=== PATIENT | female | born 1940 | race Caucasian/White ===

== ENCOUNTER → 2016-11-07 | Outpatient (CLI) | payer OTHER ==
[2016-11-07] VITALS (7 sets, daily range): BP systolic 107–128; BP diastolic 53–64
[~2016-11-07] VITALS: Ht 157.5 cm; Wt 70.8 kg
[~2016-11-07] MED LIST: ASPI-482 PO; CARV25TA2 PO; CARV3.122 PO; FUROSEMIDE 20 MG/2 ML VIAL. IVP ONE; GLIP10TA13 PO; LISI1TAB7 PO; METF-620 PO; OMEG1CAP6 PO; TRAM50TA PO
[2016-11-07 10:45] LABS: HEMATOCRIT 21.3 % (36.0-47.0)
[2016-11-07 10:49] LABS: HEMOGLOBIN 6.8 g/dL (12.0-15.5)
[2016-11-07 16:46] LABS: HEMATOCRIT 31.6 % (36.0-47.0); HEMOGLOBIN 10.2 g/dL (12.0-15.5)
== END | disposition home or self-care (01) ==
LOC: OPS 10:14
PROVIDERS: ATTEND Family Medicine
DX: D64.9 Anemia, unspecified (principal)
CPT/HCPCS: 36415; 36430; 85014; 85018; 86850; 86900; 86901; 86920; P9016

== ENCOUNTER → 2017-10-10 | Outpatient (CLI) | payer OTHER ==
[2017-10-10 08:53] LABS: HEMATOCRIT 25.7 % (36.0-47.0); HEMOGLOBIN 7.2 g/dL (12.0-15.5)
[2017-10-10 09:03] LABS: MEAN CORPUSCULAR HGB CONC 29 g/dL (31-37)
[2017-10-10 10:00] LABS: IMMEDIATE SPIN CROSSMATCH 1 3
== END | disposition home or self-care (01) ==
LOC: OPS 07:17
DX: D64.9 Anemia, unspecified (principal)
CPT/HCPCS: 36415; 36430; 85014; 85018; 86850; 86900; 86901; 86920; P9016

== ENCOUNTER → 2018-10-28 | Outpatient (CLI) | payer OTHER ==
[2018-05-08 15:27] VITALS: BP 166/71
[~2018-10-28] MED LIST changes: +CARV3.1210 PO; -CARV3.122 PO; -FUROSEMIDE 20 MG/2 ML VIAL. IVP ONE; -METF-620 PO; +METF10007 PO
--- NOTE | 2018-10-29 10:06 | KCIC ---
EXAM: AP pelvis DATE: 10/28/2018 INDICATION: Right hip pain since 09/27/2018. History of fall COMPARISON: No Prior FINDINGS: There is marked osteopenia. There is subtle interruption of the right iliopectineal line suggesting associated nondisplaced fracture. In addition there may be lucency through the inferior right pubic ramus also suspicious for nondisplaced fracture. Apparent lucency through the intertrochanteric region is seen without cortical abnormality or malalignment, possibly nondisplaced fracture or artifact. IMPRESSION: Several equivocal lucencies through the right hip and pelvis are suspicious for nondisplaced fractures. However given marked osteopenia this evaluation is limited by radiographs and can be further assessed by MRI. Electronically signed by: Mak Alexis MD (10/29/2018 10:03 AM) [id number]
== END | disposition home or self-care (01) ==
LOC: KCIC CT 15:02
PROVIDERS: ATTEND Family Medicine
DX: M85.88 Other specified disorders of bone density and structure, other site (principal)
CPT/HCPCS: 73502

== ENCOUNTER 2019-06-13 09:41 | Inpatient (IN) | payer MEDICARE, OTHER ==
[~2019-06-13] VITALS: Ht 157.5 cm; Wt 66.4 kg
[~2019-06-13 09:41] MED LIST changes: +LISI1TAB20 PO; -LISI1TAB7 PO
[2019-06-13] MEDS ORDERED: IV NORMAL SALINE 1000ML BAG 1,000 ML IV ONE ×2 (10:15→12:30)
--- NOTE | 2019-06-13 10:23 | PHYS DOC ---
Adult General Chief Complaint Chief Complaint: ABDOMINAL PAIN HPI HPI Patient is a 78 year old female] who presents with [right upper quadrant abdominal pain and fatigue. Patient reports she's been having some intermittent abdominal pain for the last 2 weeks, stasis, but worse over the last couple days. States she has felt nauseous, vomiting, diarrhea last week with symptoms improving. Reports her symptoms worsened again over the last 5 days. States any time she eats something, she vomits it back up shortly afterwards. States no fever, no change in diet. States she has not had this discomfort this severe in the past. Denies change in urination. Does report her blood sugar had been a little higher than normal recently, self reports 275 this morning. ] Review of Systems Review of Systems Constitutional: Denies fever or chills does report generalized fatigue [] Eyes: Denies change in visual acuity, redness, or eye pain [] HENT: Denies nasal congestion or sore throat [] Respiratory: Denies cough or shortness of breath [] Cardiovascular: No additional information not addressed in HPI [] GI: Reports generalized abdominal pain, right upper quadrant and right side left. Reports minimal discomfort to left side. States history of Nausea, vomiting, diarrhea over the last couple days, worse today.[] : Denies dysuria or hematuria [] Musculoskeletal: Reports back pain, right side.[] Integument: Denies rash or skin lesions [] Neurologic: Denies headache, focal weakness or sensory changes [] Endocrine: Denies polyuria or polydipsia [] All other systems were reviewed and found to be within normal limits, except as documented in this note. Current Medications Current Medications Current Medications Medications (Trade) Dose Ordered Sig/James Start Time Stop Time Status Last Admin Dose Admin Ondansetron HCl (Zofran) 4 mg 1X ONCE 06/13/19 10:45 06/13/19 10:46 DC 06/13/19 10:35 4 MG Sodium Chloride 1,000 ml @ 125 mls/hr 1X ONCE 06/13/19 12:30 06/13/19 20:29 06/13/19 12:30 125 MLS/HR Allergies Allergies Allergies Coded Allergies Type Severity Reaction Last Updated Verified iodine Allergy Severe blisters leaving scars 10/10/17 Yes Physical Exam Physical Exam Constitutional: Well developed, well nourished, no acute distress, pale, conve rsational. [] HENT: Normocephalic, atraumatic, bilateral external ears normal, oropharynx moist, no oral exudates, nose normal. [] Eyes: PERRLA, EOMI, conjunctiva normal, no discharge. [] Neck: Normal range of motion, no tenderness, supple, no stridor. [] Cardiovascular:Heart rate regular rhythm, no murmur [] Lungs & Thorax: Bilateral breath sounds clear to auscultation [] Abdomen: Bowel sounds normal, soft, right upper quadrant, right lower quadrant abdominal tenderness. Minimal abdominal tenderness noted to left upper quadrant. No discomfort noted to left lower quadrant., no masses, no pulsatile masses. [] Skin: Warm, dry, no erythema, no rash. pallor [] Back: No tenderness, Right CVA tenderness. [] Extremities: No tenderness, no cyanosis, no clubbing, ROM intact, no edema. [] Neurologic: Alert and oriented X 3, normal motor function, normal sensory function, no focal deficits noted. [] Psychologic: Affect normal, judgement normal, mood normal. [] Current Patient Data Vital Signs Vital Signs Date Time Temp Pulse Resp B/P (MAP) Pulse Ox O2 Delivery O2 Flow Rate FiO2 06/13/19 12:30 70 16 105/46 (65) 97 Room Air 06/13/19 09:48 97.8 97.8 Lab Values Laboratory Tests Test 06/13/19 10:15 06/13/19 10:39 White Blood Count 6.6 x10^3/uL (4.0-11.0) Red Blood Count 4.45 x10^6/uL (3.50-5.40) Hemoglobin 13.0 g/dL (12.0-15.5) Hematocrit 39.6 % (36.0-47.0) Mean Corpuscular Volume 89 fL (79-100) Mean Corpuscular Hemoglobin 29 pg (25-35) Mean Corpuscular Hemoglobin Concent 33 g/dL (31-37) Red Cell Distribution Width 14.0 % (11.5-14.5) Platelet Count 324 x10^3/uL (140-400) Neutrophils (%) (Auto) 64 % (31-73) Lymphocytes (%) (Auto) 22 % (24-48) L Monocytes (%) (Auto) 10 % (0-9) H Eosinophils (%) (Auto) 2 % (0-3) Basophils (%) (Auto) 1 % (0-3) Neutrophils # (Auto) 4.2 x10^3/uL (1.8-7.7) Lymphocytes # (Auto) 1.5 x10^3/uL (1.0-4.8) Monocytes # (Auto) 0.7 x10^3/uL (0.0-1.1) Eosinophils # (Auto) 0.1 x10^3/uL (0.0-0.7) Basophils # (Auto) 0.1 x10^3/uL (0.0-0.2) Sodium Level 136 mmol/L (136-145) Potassium Level 4.7 mmol/L (3.5-5.1) Chloride Level 99 mmol/L (98-107) Carbon Dioxide Level 22 mmol/L (21-32) Anion Gap 15 (6-14) H Blood Urea Nitrogen 62 mg/dL (7-20) H Creatinine 5.1 mg/dL (0.6-1.0) H Estimated GFR (Cockcroft-Gault) 8.2 BUN/Creatinine Ratio 12 (6-20) Glucose Level 271 mg/dL (70-99) H 260 mg/dL (70-99) H Lactic Acid Level 2.7 mmol/L (0.4-2.0) H Calcium Level 10.3 mg/dL (8.5-10.1) H Total Bilirubin 0.4 mg/dL (0.2-1.0) Aspartate Amino Transferase (AST) 25 U/L (15-37) Alanine Aminotransferase (ALT) 16 U/L (14-59) Alkaline Phosphatase 66 U/L (46-116) Troponin I Quantitative < 0.017 ng/mL (0.000-0.055) Total Protein 7.7 g/dL (6.4-8.2) Albumin 3.4 g/dL (3.4-5.0) Albumin/Globulin Ratio 0.8 (1.0-1.7) L Lipase 313 U/L (73-393) POC Hematocrit 36 % (36-40) POC Venous pH 7.30 (7.32-7.42) L POC Venous pCO2 40 mmHg (41-51) L POC Venous pO2 38 mmHg (20-40) POC Venous HCO3 20 mmol/L (24-28) L POC Venous Blood Total CO2 21 mmol/L (21-32) POC Venous Blood O2 Saturation 66 % POC Venous Blood Base Excess -7 mmol/L (0-3) L POC Venous Hemoglobin (Calc) 12.2 g/dL (12-15) POC FiO2 21 POC Sodium 137 mmol/L (135-145) POC Potassium 4.3 mmol/L (3.5-5.0) POC Ionized Calcium (Sameera) 1.26 mmol/L (1.13-1.32) Laboratory Tests 06/13/19 10:15 Laboratory Tests 06/13/19 10:15 06/13/19 10:39 EKG EKG No STEMI. Left Bundle Branch Block. HR 84. Sinus rhythm.[] Radiology/Procedures Radiology/Procedures Impression: 1. There is no significant inflammatory type change about the bowel although it is difficult to exclude mild long segment colonic wall thickening of the transverse and descending colon and also small bowel thickening in the left abdomen as could be seen with enterocolitis in the appropriate clinical setting. There is no convincing evidence of acute appendicitis. 2. There is calcified plaque of the abdominal aorta and branches, more significant stenosis of the right common iliac artery and proximal left external iliac artery. 3. There is cholelithiasis. 4. There are renal calculi, largest on the left. Some calcifications of the renal hilar regions are apparently vascular in etiology. Electronically signed by: Grover Franco MD (06/13/2019 10:56 AM) [facility] [] CHEST AP ONLY History: Abdominal pain, fatigue Comparison: 07/14/2012 Findings: Single view of the chest is submitted. There again has been median sternotomy. There is again dual lead left electronic cardiac device. Heart size is within normal limits. There is atherosclerotic calcification near aortic arch. There is no lobar infiltrate, pleural fluid, or pneumothorax. Impression: 1. There is no radiographic evidence of acute cardiopulmonary disease. Electronically signed by: Grover Franco MD (06/13/2019 10:39 AM) [facility] Multiple sonographic images of the abdomen are submitted. Pancreas is not well-visualized due to bowel gas. There is segmental visualization of the inferior vena cava. No focal hepatic abnormality is demonstrated. Right lobe of the liver measured 12 cm longitudinal. Gallbladder is present, internal echogenicity without pericholecystic fluid or gallbladder wall thickening. Common bile duct is within normal limits at 0.4 cm. Right kidney measured 11.5 x 4.6 x 5.3 cm, no hydronephrosis. Impression: 1. There is cholelithiasis, no significant gallbladder wall thickening or biliary ductal dilatation. Electronically signed by: Grover Franco MD (06/13/2019 11:45 AM) [facility] Course & Med Decision Making Course & Med Decision Making Pertinent Labs and Imaging studies reviewed. (See chart for details) @1220 [Discussed with Dr Yusuf, Nephrology, recommends hydration at this time with no noted electrolyte abnormality. ]@[address] Baker, agrees to admission. Dragon Disclaimer Dragon Disclaimer This electronic medical record was generated, in whole or in part, using a voice recognition dictation system. Departure Departure Impression: Primary Impression: Acute renal failure Disposition: ADMITTED INPATIENT Admitting Physician: MAN Condition: STABLE Referrals: MAKSIM WHITESIDE MD (PCP) Problem Qualifiers Primary Impression: Acute renal failure Acute renal failure type: unspecified Qualified Codes: N17.9 - Acute kidney failure, unspecified [facility] Jun 13, 2019 10:23
[2019-06-13 10:30] LABS: BASO # 0.1 x10^3/uL (0.0-0.2); BASO % 1 % (0-3); EOS # 0.1 x10^3/uL (0.0-0.7); EOS % 2 % (0-3); HEMATOCRIT 39.6 % (36.0-47.0); LYMPH # 1.5 x10^3/uL (1.0-4.8); LYMPH % 22 % (24-48); MEAN CORPUSCULAR HEMOGLOBIN 29 pg (25-35); MEAN CORPUSCULAR HGB CONC 33 g/dL (31-37); MEAN CORPUSCULAR VOLUME 89 fL (79-100); MONO # 0.7 x10^3/uL (0.0-1.1); MONO % 10 % (0-9); NEUT # 4.2 x10^3/uL (1.8-7.7); NEUT % 64 % (31-73); PLATELET COUNT 324 x10^3/uL (140-400); RED BLOOD COUNT 4.45 x10^6/uL (3.50-5.40); WHITE BLOOD COUNT 6.6 x10^3/uL (4.0-11.0)
[2019-06-13 10:42] LABS: FIO2 ISTAT 21; VEN BASE EXCESS ISTAT -7 mmol/L (0-3); VEN GLUC ISTAT 260 mg/dL (70-99); VEN HCO3 ISTAT 20 mmol/L (24-28); VEN HCT ISTAT 36 % (36-40); VEN HGB ISTAT 12.2 g/dL (12-15); VEN ION CA ISTAT 1.26 mmol/L (1.13-1.32); VEN K ISTAT 4.3 mmol/L (3.5-5.0); VEN NA ISTAT 137 mmol/L (135-145); VEN O2 ISTAT 38 mmHg (20-40); VEN PCO2 ISTAT 40 mmHg (41-51); VEN SO2 ISTAT 66 %; VEN TCO2 ISTAT 21 mmol/L (21-32)
--- NOTE | 2019-06-13 10:42 | RAD ---
CHEST AP ONLY History: Abdominal pain, fatigue Comparison: 07/14/2012 Findings: Single view of the chest is submitted. There again has been median sternotomy. There is again dual lead left electronic cardiac device. Heart size is within normal limits. There is atherosclerotic calcification near aortic arch. There is no lobar infiltrate, pleural fluid, or pneumothorax. Impression: 1. There is no radiographic evidence of acute cardiopulmonary disease. Electronically signed by: Grover Franco MD (06/13/2019 10:39 AM) [facility]
[2019-06-13 10:45] LABS: CALCIUM 10.3 mg/dL (8.5-10.1); CREATININE 5.1 mg/dL (0.6-1.0); GFR 8.2; POTASSIUM 4.7 mmol/L (3.5-5.1)
[2019-06-13] MEDS ORDERED: ONDANSETRON PF 4 MG/2 ML VIAL. IV ONE (10:45)
[2019-06-13 10:51] LABS: ALBUMIN 3.4 g/dL (3.4-5.0); ALBUMIN/GLOBULIN RATIO 0.8 (1.0-1.7); TOTAL BILIRUBIN 0.4 mg/dL (0.2-1.0); TOTAL PROTEIN 7.7 g/dL (6.4-8.2)
--- NOTE | 2019-06-13 10:59 | RAD ---
CT Abdomen and Pelvis without contrast History: Generalized abdominal pain Technique: Noncontrast CT imaging was performed of the abdomen and pelvis. Multiplanar images are reviewed. Exposure: One or more of the following individualized dose reduction techniques were utilized for this examination: 1. Automated exposure control 2. Adjustment of the mA and/or kV according to patient size 3. Use of iterative reconstruction technique. Comparison: April 01, 2012 Findings: There is some motion degradation. Leads from electronic cardiac device are noted, not fully included. The is no pleural fluid at the visualized lung bases. Accurate evaluation of the abdominal visceral organs is limited without intravenous contrast, no obvious focal abnormality of the liver or pancreas. There are splenic granulomas. There is cholelithiasis. There is no hydronephrosis of either kidney. There are some calcifications of the renal hilar regions bilaterally in part vascular in etiology although again somewhat branching calculus superior left kidney in the renal collecting system, greatest dimension about 1.2 cm. A couple of small calcifications the right kidney are also likely in the collecting system. There is prominent calcified plaque of the abdominal aorta, also of the iliac arteries bilaterally. There is likely more significant stenosis of the right common iliac artery and of the proximal left external iliac artery. There is also degree of narrowing of the renal artery origins greater on the left. There is also calcified plaque of the proximal superior mesenteric artery and also near the origin of the celiac artery. There is no adrenal nodularity. Accurate evaluation of bowel is somewhat limited without oral contrast. Bowel is not significantly dilated. There is no free fluid or free air. There is no significant inflammatory type change about the bowel. Appendix caliber is upper limits of normal about 0.5 to 0.6 cm not associated with adjacent inflammatory-type change. It is difficult to exclude mild wall long segment wall thickening such as of the transverse and descending colon on this exam. Mild wall thickening of small bowel such as in the left abdomen is also not excludable. There is multilevel thoracolumbar degenerative disc disease, greatest L5-S1 and L3-4. Impression: 1. There is no significant inflammatory type change about the bowel although it is difficult to exclude mild long segment colonic wall thickening of the transverse and descending colon and also small bowel thickening in the left abdomen as could be seen with enterocolitis in the appropriate clinical setting. There is no convincing evidence of acute appendicitis. 2. There is calcified plaque of the abdominal aorta and branches, more significant stenosis of the right common iliac artery and proximal left external iliac artery. 3. There is cholelithiasis. 4. There are renal calculi, largest on the left. Some calcifications of the renal hilar regions are apparently vascular in etiology. Electronically signed by: Grover Franco MD (06/13/2019 10:56 AM) [facility]
--- NOTE | 2019-06-13 11:48 | RAD ---
ABDOMEN LTD History: Right upper quadrant pain, cholelithiasis on CT Comparison: CT exam the same day Findings: Multiple sonographic images of the abdomen are submitted. Pancreas is not well-visualized due to bowel gas. There is segmental visualization of the inferior vena cava. No focal hepatic abnormality is demonstrated. Right lobe of the liver measured 12 cm longitudinal. Gallbladder is present, internal echogenicity without pericholecystic fluid or gallbladder wall thickening. Common bile duct is within normal limits at 0.4 cm. Right kidney measured 11.5 x 4.6 x 5.3 cm, no hydronephrosis. Impression: 1. There is cholelithiasis, no significant gallbladder wall thickening or biliary ductal dilatation. Electronically signed by: Grover Franco MD (06/13/2019 11:45 AM) [facility]
--- NOTE | 2019-06-13 12:45 | PDOC1 ---
History and Physical Date of Admission Date of Admission DATE: 06/13/19 TIME: 12:44 Identification/Chief Complaint Chief Complaint Abdominal pain Source Source: Patient History of Present Illness History of Present Illness Ms Lama is a 78 yo F w/PMHx CAD s/p CABG, tachybrady s/p PPM, ex-smoker, COPD, HLD, HTN, cardiomyopathy/CHF EF 30% (2012), anemia who presents with right upper quadrant abdominal pain and fatigue. Patient reports she's been having some intermittent abdominal pain for the last 2 weeks, but worse over the last couple days. States she has felt nauseous, vomiting, diarrhea last week with symptoms not improving. Reports her symptoms worsened again over the last 5 days. States any time she eats something, she vomits it back up shortly afterwards. States no fever, no change in diet. Her stools have been very dark recently. Denies change in urination. Does report her blood sugar had been a little higher than normal recently, self reports 275 this morning. Her daughter found her scooting around in her house, down on the ground for 2-3 days. Found with BUN 62, Cr 5.1. Abdominal US reveals cholelithiasis without cholecystitis or ductal dilation. CT abdomen shows possible enteritis with renal stones in left kidney, no obstructive uropathy. Admitted for pain control and renal failure treatment. Past Medical History Cardiovascular: CAD, CHF, HTN, Hyperlipidemia Pulmonary: COPD GI: No pertinent hx Rheumatologic: No pertinent hx Infectious disease: No pertinent hx ENT: No pertinent hx Renal/: No pertinent hx Endocrine: Diabetes Dermatology: No pertinent hx Past Surgical History Past Surgical History: Pacemaker, CABG Family History Family History: Coronary Artery Disease, Diabetes, High Cholestrol, Hypertension Social History Smoke: Quit (2011) ALCOHOL: none Drugs: None Current Medications Current Medications Current Medications Sodium Chloride 1,000 ml @ 1,000 mls/hr 1X ONCE IV Last administered on 06/13/19at 10:15; Start 06/13/19 at 10:15; Stop 06/13/19 at 11:14; Status DC Ondansetron HCl (Zofran) 4 mg 1X ONCE IV Last administered on 06/13/19at 10:35; Start 06/13/19 at 10:45; Stop 06/13/19 at 10:46; Status DC Sodium Chloride 1,000 ml @ 125 mls/hr 1X ONCE IV Last administered on 06/13/19at 12:30; Start 06/13/19 at 12:30; Stop 06/13/19 at 20:29 Active Scripts Active Reported Aspir 81 (Aspirin) 81 Mg Tablet.dr 81 Mg PO DAILY Fish Oil 1,000 Mg Capsule (Strum-3 Fatty Acids/Fish Oil) 1 Each Capsule 1 Each PO DAILY Tramadol Hcl 50 Mg Tablet 50 Mg PO PRN Carvedilol 25 Mg Tablet 25 Mg PO Carvedilol 3.125 Mg Tablet 3.125 Mg PO BID Lisinopril-Hctz 20-25 Mg Tab (Lisinopril/Hydrochlorothiazide) 1 Each Tablet 1 Each PO DAILY Glipizide 10 Mg Tablet 10 Mg PO BID Metformin Hcl 1,000 Mg Tablet 1,000 Mg PO BID Allergies Allergies: Coded Allergies: iodine (Verified Allergy, Severe, blisters leaving scars, 10/10/17) ROS General: YES: Fatigue, Malaise, Appetite; No: Chills, Night Sweats, Other PSYCHOLOGICAL ROS: No: Anxiety, Behavioral Disorder, Concentration difficultie, Decreased libido, Depression, Disorientation, Hallucinations, Hostility, Irritablity, Memory difficulties, Mood Swings, Obsessive thoughts, Physical abuse, Sexual abuse, Sleep disturbances, Suicidal ideation, Other Eyes: No Blurry vision, No Decreased vision, No Double vision, No Dry eyes, No Excessive tearing, No Eye Pain, No Itchy Eyes, No Loss of vision, No Photophobia, No Scotomata, No Uses contacts, No Uses glasses, No Other HEENT: No: Heacaches, Visual Changes, Hearing change, Nasal congestion, Nasal discharge, Oral lesions, Sinus pain, Sore Throat, Epistaxis, Sneezing, Snoring, Tinnitus, Vertigo, Vocal changes, Other ALLERGY AND IMMUNOLOGY: No: Hives, Insect Bite Sensitivity, Itchy/Watery Eyes, Nasal Congestion, Post Nasal Drip, Seasonal Allergies, Other Hematological and Lymphatic: No: Bleeding Problems, Blood Clots, Blood Transfusions, Brusing, Night Sweats, Pallor, Swollen Lymph Nodes, Other ENDOCRINE: No: Breast Changes, Galactorrhea, Hair Pattern Changes, Hot Flashes, Malaise/lethargy, Mood Swings, Palpitations, Polydipsia/polyuria, Skin Changes, Temperature Intolerance, Unexpected Weight Changes, Other Breast: No New/Changing Breast Lumps, No Nipple changes, No Nipple discharge, No Other Respiratory: No: Cough, Hemoptysis, Orthopnea, Pleuritic Pain, Shortness of breath, SOB with excertion, Sputum Changes, Stridor, Tachypnea, Wheezing, Other Cardiovascular: No Chest Pain, No Palpitations, No Orthopnea, No Paroxysmal Noc. Dyspnea, No Edema, No Lt Headedness, No Other Gastrointestinal: Yes Nausea, Yes Vomiting, Yes Abdominal Pain, Yes Melena; No Diarrhea, No Constipation, No Hematochezia, No Other Genitourinary: No Dysuria, No Frequency, No Incontinence, No Hematuria, No Retention, No Discharge, No Urgency, No Pain, No Flank Pain, No Other, No , No , No , No , No , No , No Musculoskeletal: Yes Gait Disturbance, Yes Muscular Weakness; No Joint Pain, No Joint Stiffness, No Joint Swelling, No Muscle Pain, No Pain In:, No Swelling In:, No Other Neurological: Yes Gait Disturbance; No Behavorial Changes, No Bowel/Bladder ControlChng, No Confusion, No Dizziness, No Headaches, No Impaired Coord/balance, No Memory Loss, No Numbness/Tingling, No Seizures, No Speech Problems, No Tremors, No Visual Changes, No Weakness, No Other Skin: No Dry Skin, No Eczema, No Hair Changes, No Lumps, No Mole Changes, No Mottling, No Nail Changes, No Pruritus, No Rash, No Skin Lesion Changes, No Other, No Acne Physical Exam General: Alert, Oriented X3, Cooperative, mild distress HEENT: Atraumatic, PERRLA, EOMI, Mucous membr. moist/pink Lungs: Clear to auscultation, Normal air movement Heart: S1S2, RRR, no thrills, no rubs, no gallops, no murmurs Abdomen: Normal bowel sounds, Soft, No hepatosplenomegaly, No masses, Other (Diffuse pain, epigastric and RUQ) Rectal Exam: not examined Extremities: No clubbing, No cyanosis, No edema, Normal pulses, No tenderness/swelling Skin: No rashes, No breakdown, No significant lesion Neuro: Normal speech, Strength at 5/5 X4 ext, Normal tone, Sensation intact, Cranial nerves 3-12 NL, Reflexes 2+ Psych/Mental Status: Mental status NL, Mood NL Vitals Vitals Vital Signs Date Time Temp Pulse Resp B/P (MAP) Pulse Ox O2 Delivery O2 Flow Rate FiO2 06/13/19 11:30 64 16 104/40 (61) 94 Room Air 06/13/19 09:48 97.8 97.8 Labs Labs Laboratory Tests Test 06/13/19 10:15 06/13/19 10:39 White Blood Count 6.6 x10^3/uL (4.0-11.0) Red Blood Count 4.45 x10^6/uL (3.50-5.40) Hemoglobin 13.0 g/dL (12.0-15.5) Hematocrit 39.6 % (36.0-47.0) Mean Corpuscular Volume 89 fL (79-100) Mean Corpuscular Hemoglobin 29 pg (25-35) Mean Corpuscular Hemoglobin Concent 33 g/dL (31-37) Red Cell Distribution Width 14.0 % (11.5-14.5) Platelet Count 324 x10^3/uL (140-400) Neutrophils (%) (Auto) 64 % (31-73) Lymphocytes (%) (Auto) 22 % (24-48) Monocytes (%) (Auto) 10 % (0-9) Eosinophils (%) (Auto) 2 % (0-3) Basophils (%) (Auto) 1 % (0-3) Neutrophils # (Auto) 4.2 x10^3/uL (1.8-7.7) Lymphocytes # (Auto) 1.5 x10^3/uL (1.0-4.8) Monocytes # (Auto) 0.7 x10^3/uL (0.0-1.1) Eosinophils # (Auto) 0.1 x10^3/uL (0.0-0.7) Basophils # (Auto) 0.1 x10^3/uL (0.0-0.2) Sodium Level 136 mmol/L (136-145) Potassium Level 4.7 mmol/L (3.5-5.1) Chloride Level 99 mmol/L (98-107) Carbon Dioxide Level 22 mmol/L (21-32) Anion Gap 15 (6-14) Blood Urea Nitrogen 62 mg/dL (7-20) Creatinine 5.1 mg/dL (0.6-1.0) Estimated GFR (Cockcroft-Gault) 8.2 BUN/Creatinine Ratio 12 (6-20) Glucose Level 271 mg/dL (70-99) 260 mg/dL (70-99) Lactic Acid Level 2.7 mmol/L (0.4-2.0) Calcium Level 10.3 mg/dL (8.5-10.1) Total Bilirubin 0.4 mg/dL (0.2-1.0) Aspartate Amino Transf (AST/SGOT) 25 U/L (15-37) Alanine Aminotransferase (ALT/SGPT) 16 U/L (14-59) Alkaline Phosphatase 66 U/L (46-116) Troponin I Quantitative < 0.017 ng/mL (0.000-0.055) Total Protein 7.7 g/dL (6.4-8.2) Albumin 3.4 g/dL (3.4-5.0) Albumin/Globulin Ratio 0.8 (1.0-1.7) Lipase 313 U/L (73-393) Bedside Hematocrit 36 % (36-40) Bedside Venous pH 7.30 (7.32-7.42) Bedside Venous pCO2 40 mmHg (41-51) Bedside Venous pO2 38 mmHg (20-40) Bedside Venous HCO3 20 mmol/L (24-28) Bedside Venous Blood Total CO2 21 mmol/L (21-32) Bedside Venous Blood O2 Saturation 66 % Bedside Venous Blood Base Excess -7 mmol/L (0-3) POC Venous Hemoglobin (Calc) 12.2 g/dL (12-15) Bedside FiO2 21 Bedside Sodium 137 mmol/L (135-145) Bedside Potassium 4.3 mmol/L (3.5-5.0) Bedside Ionized Calcium (Sameera) 1.26 mmol/L (1.13-1.32) Laboratory Tests Test 06/13/19 10:15 06/13/19 10:39 White Blood Count 6.6 x10^3/uL (4.0-11.0) Red Blood Count 4.45 x10^6/uL (3.50-5.40) Hemoglobin 13.0 g/dL (12.0-15.5) Hematocrit 39.6 % (36.0-47.0) Mean Corpuscular Volume 89 fL (79-100) Mean Corpuscular Hemoglobin 29 pg (25-35) Mean Corpuscular Hemoglobin Concent 33 g/dL (31-37) Red Cell Distribution Width 14.0 % (11.5-14.5) Platelet Count 324 x10^3/uL (140-400) Neutrophils (%) (Auto) 64 % (31-73) Lymphocytes (%) (Auto) 22 % (24-48) Monocytes (%) (Auto) 10 % (0-9) Eosinophils (%) (Auto) 2 % (0-3) Basophils (%) (Auto) 1 % (0-3) Neutrophils # (Auto) 4.2 x10^3/uL (1.8-7.7) Lymphocytes # (Auto) 1.5 x10^3/uL (1.0-4.8) Monocytes # (Auto) 0.7 x10^3/uL (0.0-1.1) Eosinophils # (Auto) 0.1 x10^3/uL (0.0-0.7) Basophils # (Auto) 0.1 x10^3/uL (0.0-0.2) Sodium Level 136 mmol/L (136-145) Potassium Level 4.7 mmol/L (3.5-5.1) Chloride Level 99 mmol/L (98-107) Carbon Dioxide Level 22 mmol/L (21-32) Anion Gap 15 (6-14) Blood Urea Nitrogen 62 mg/dL (7-20) Creatinine 5.1 mg/dL (0.6-1.0) Estimated GFR (Cockcroft-Gault) 8.2 BUN/Creatinine Ratio 12 (6-20) Glucose Level 271 mg/dL (70-99) 260 mg/dL (70-99) Lactic Acid Level 2.7 mmol/L (0.4-2.0) Calcium Level 10.3 mg/dL (8.5-10.1) Total Bilirubin 0.4 mg/dL (0.2-1.0) Aspartate Amino Transf (AST/SGOT) 25 U/L (15-37) Alanine Aminotransferase (ALT/SGPT) 16 U/L (14-59) Alkaline Phosphatase 66 U/L (46-116) Troponin I Quantitative < 0.017 ng/mL (0.000-0.055) Total Protein 7.7 g/dL (6.4-8.2) Albumin 3.4 g/dL (3.4-5.0) Albumin/Globulin Ratio 0.8 (1.0-1.7) Lipase 313 U/L (73-393) Bedside Hematocrit 36 % (36-40) Bedside Venous pH 7.30 (7.32-7.42) Bedside Venous pCO2 40 mmHg (41-51) Bedside Venous pO2 38 mmHg (20-40) Bedside Venous HCO3 20 mmol/L (24-28) Bedside Venous Blood Total CO2 21 mmol/L (21-32) Bedside Venous Blood O2 Saturation 66 % Bedside Venous Blood Base Excess -7 mmol/L (0-3) POC Venous Hemoglobin (Calc) 12.2 g/dL (12-15) Bedside FiO2 21 Bedside Sodium 137 mmol/L (135-145) Bedside Potassium 4.3 mmol/L (3.5-5.0) Bedside Ionized Calcium (Sameera) 1.26 mmol/L (1.13-1.32) Images Images Abdominal US - Pancreas is not well-visualized due to bowel gas. There is segmental visualization of the inferior vena cava. No focal hepatic abnormality is demonstrated. Right lobe of the liver measured 12 cm longitudinal. G allbladder is present, internal echogenicity without pericholecystic fluid or gallbladder wall thickening. Common bile duct is within normal limits at 0.4 cm. Right kidney measured 11.5 x 4.6 x 5.3 cm, no hydronephrosis. Impression: 1. There is cholelithiasis, no significant gallbladder wall thickening or biliary ductal dilatation. CT abdomen/pelvis wo contrast - There is some motion degradation. Leads from electronic cardiac device are noted, not fully included. The is no pleural fluid at the visualized lung bases. Accurate evaluation of the abdominal visceral organs is limited without intravenous contrast, no obvious focal abnormality of the liver or pancreas. There are splenic granulomas. There is cholelithiasis. There is no hydronephrosis of either kidney. There are some calcifications of the renal hilar regions bilaterally in part vascular in etiology although again somewhat branching calculus superior left kidney in the renal collecting system, greatest dimension about 1.2 cm. A couple of small calcifications the right kidney are also likely in the collecting system. There is prominent calcified plaque of the abdominal aorta, also of the iliac arteries bilaterally. There is likely more significant stenosis of the right common iliac artery and of the proximal left external iliac artery. There is also degree of narrowing of the renal artery origins greater on the left. There is also calcified plaque of the proximal superior mesenteric artery and also near the origin of the celiac artery. There is no adrenal nodularity. Accurate evaluation of bowel is somewhat limited without oral contrast. Bowel is not significantly dilated. There is no free fluid or free air. There is no significant inflammatory type change about the bowel. Appendix caliber is upper limits of normal about 0.5 to 0.6 cm not associated with adjacent inflammatory-type change. It is difficult to exclude mild wall long segment wall thickening such as of the transverse and descending colon on this exam. Mild wall thickening of small bowel such as in the left abdomen is also not excludable. There is multilevel thoracolumbar degenerative disc disease, greatest L5-S1 and L3-4. Impression: 1. There is no significant inflammatory type change about the bowel although it is difficult to exclude mild long segment colonic wall thickening of the transverse and descending colon and also small bowel thickening in the left abdomen as could be seen with enterocolitis in the appropriate clinical setting. There is no convincing evidence of acute appendicitis. 2. There is calcified plaque of the abdominal aorta and branches, more significant stenosis of the right common iliac artery and proximal left external iliac artery. 3. There is cholelithiasis. 4. There are renal calculi, largest on the left. Some calcifications of the renal hilar regions are apparently vascular in etiology. CXR - There again has been median sternotomy. There is again dual lead left electronic cardiac device. Heart size is within normal limits. There is atherosclerotic calcification near aortic arch. There is no lobar infiltrate, pleural fluid, or pneumothorax. Impression: 1. There is no radiographic evidence of acute cardiopulmonary disease. VTE Prophylaxis Ordered VTE Prophylaxis Devices: No VTE Pharmacological Prophylaxi: Yes Assessment/Plan Assessment/Plan A/P: Intractable abdominal pain - no gallbladder disease. Could be enteritis vs uremia. Will hydrate, PO as tolerated Nausea, vomiting, diarrhea - likely gastroenteritis, will trial on diet now ELIZABETH - likely vasomotor nephropathy, will hydrate. If no improvement she notes she would NEVER go on dialysis. Will consult nephrology if she does not improve in the next 48 hours. CAD s/p CABG - will cont meds Tachybrady s/p PPM - will maintain telemetry Ex-smoker - still has cigarettes at home, denies smoking, though COPD - will continue nebulizers while in house HLD - cont statin HTN - cont meds Cardiomyopathy - ischemic per history. Cont meds CHF EF 30% (2012) - no recent records available [facility] - no prior EKG available. I have reviewed her EKG History of anemia - likely still anemic, but hemoconcentrated currently. WIll monitor FEN - Renal diet PPX - heparin DNR/DNI Dispo - inpatient for at least 2 midnights FABIENNE HUNT MD Jun 13, 2019 12:45
[2019-06-13 13:00] VITALS: BP 129/60
[2019-06-13] MEDS: IV NORMAL SALINE 1000ML BAG 1,000 ML IV SCH ×4 (13:02→23:10)
[2019-06-13] MEDS ORDERED: SITA100T PO (14:48)
[2019-06-13] MEDS ORDERED: ATOR40TA59 PO (14:49)
[2019-06-13 15:00] VITALS: BP 136/60
[2019-06-13] MEDS ORDERED: traMADol 50 MG TABLET PO PRN (16:30)
[2019-06-13] MEDS ORDERED: HYDROmorphone 2 MG/ML VIAL IVP PRN (16:30)
[2019-06-13] MEDS ORDERED: ONDANSETRON PF 4 MG/2 ML VIAL. IV PRN (16:30)
[2019-06-13] MEDS ORDERED: DEXTROSE 50% 25 GM / 50ML DISP.SYRIN. IV PRN (16:30)
[2019-06-13] MEDS ORDERED: DOCUSATE SODIUM 100 MG CAPSULE. PO PRN (16:30)
[2019-06-13] MEDS: INSULIN LISPRO 300 UNITS/3 ML VIAL. SQ SCH ×2 (16:30→20:44)
[2019-06-13] MEDS ORDERED: IV DEXTROSE 5% 250 ML BAG. IV PRN (16:30)
[2019-06-13] MEDS ORDERED: SODIUM BICARB ADULT 8.4% 50 MEQ/50 ML DISP.SYRIN. IV ONE (17:30)
[2019-06-13 19:22] LABS: BILIRUBIN,URINE NEGATIVE (NEG); CLARITY,URINE CLOUDY; COLOR,URINE YELLOW; NITRITE,URINE NEGATIVE (NEG); PROTEIN,URINE 30 mg/dL (NEG-TRACE); UROBILINOGEN,URINE 0.2 mg/dL (0.2 mg/dL)
[2019-06-13 19:25] VITALS: BP 137/63
[2019-06-13 19:26] LABS: AMORPHOUS SEDIMENT,UR PRESENT /HPF; BACTERIA,URINE MODERATE /HPF (0-FEW); SQUAMOUS EPITHELIAL CELL,UR MANY /LPF; WBC,URINE 20-40 /HPF (0-4)
[2019-06-13] MEDS: ATORVASTATIN CALCIUM 40 MG TABLET. PO SCH (20:45)
[2019-06-13] MEDS: CARVEDILOL 3.125 MG TABLET. PO SCH (20:46)
[2019-06-13] MEDS: HEPARIN for SUB-Q USE 5,000 UNIT/ML VIAL. SQ SCH (20:47)
[2019-06-13] MEDS ORDERED: INSULIN GLARGINE SYRINGE. SQ SCH (21:00)
[2019-06-13 22:50] VITALS: BP 120/55
[2019-06-13] MEDS: ACETAMINOPHEN 325 MG TABLET. PO PRN (23:11)
[2019-06-14 03:30] VITALS: BP 84/48
[2019-06-14 04:51] LABS: BASO % 1 % (0-3); EOS # 0.1 x10^3/uL (0.0-0.7); EOS % 3 % (0-3); HEMATOCRIT 30.4 % (36.0-47.0); HEMOGLOBIN 10.2 g/dL (12.0-15.5); LYMPH # 1.5 x10^3/uL (1.0-4.8); LYMPH % 31 % (24-48); MEAN CORPUSCULAR HEMOGLOBIN 30 pg (25-35); MEAN CORPUSCULAR HGB CONC 34 g/dL (31-37); MEAN CORPUSCULAR VOLUME 88 fL (79-100); MONO # 0.7 x10^3/uL (0.0-1.1); MONO % 14 % (0-9); NEUT # 2.4 x10^3/uL (1.8-7.7); NEUT % 51 % (31-73); PLATELET COUNT 216 x10^3/uL (140-400); RED BLOOD COUNT 3.44 x10^6/uL (3.50-5.40); RED CELL DISTRIBUTION WIDTH 13.6 % (11.5-14.5); WHITE BLOOD COUNT 4.8 x10^3/uL (4.0-11.0)
[2019-06-14] MEDS: IV NORMAL SALINE 1000ML BAG 1,000 ML IV SCH ×4 (05:02→17:23)
[2019-06-14 05:07] LABS: CALCIUM 8.3 mg/dL (8.5-10.1); GFR 6.8; POTASSIUM 3.3 mmol/L (3.5-5.1)
[2019-06-14] MEDS: HEPARIN for SUB-Q USE 5,000 UNIT/ML VIAL. SQ SCH ×3 (06:04→20:21)
[2019-06-14 07:26] VITALS: BP 97/47
[2019-06-14] MEDS: INSULIN LISPRO 300 UNITS/3 ML VIAL. SQ SCH ×4 (07:30→20:22)
[2019-06-14] MEDS: SODIUM BICARB ADULT 8.4% 50 MEQ/50 ML DISP.SYRIN. IV SCH (08:18)
[2019-06-14] MEDS: CARVEDILOL 3.125 MG TABLET. PO SCH ×2 (08:19→17:16)
[2019-06-14] MEDS: OMEGA-3 FATTY ACIDS/FISH OIL 1,000 MG CAPSULE. PO SCH (08:19)
--- NOTE | 2019-06-14 09:56 | PDOC ---
PROGRESS NOTES History of Present Illness History of Present Illness VTE Prophylaxis Ordered VTE Prophylaxis Devices: No VTE Pharmacological Prophylaxi: Yes impression Assessment/Plan A/P: Intractable abdominal pain - no gallbladder disease. Could be enteritis vs uremia. Will hydrate, PO as tolerated Nausea, vomiting, diarrhea - likely gastroenteritis, ELIZABETH - likely vasomotor nephropathy, will hydrate. If no improvement she notes she would NEVER go on dialysis. Will consult nephrology if she does not improve in the next 48 hours. CAD s/p CABG - will cont meds Tachybrady s/p PPM - will maintain telemetry Ex-smoker - still has cigarettes at home, denies smoking, though COPD - will continue nebulizers while in house HLD - cont statin HTN - cont meds Cardiomyopathy - ischemic per history. Cont meds CHF EF 30% (2012) - no recent records available LBBB - no prior EKG available. I have reviewed her EKG History of anemia - likely still anemic, but hemoconcentrated currently. WIll monitor FEN - Renal diet PPX - heparin DNR/DNI Dispo - inpatient for at least 2 midnights nephrology consult avoid nephrotoxins stop tramadol 06/14 d/w RN Vitals Vitals Vital Signs Date Time Temp Pulse Resp B/P (MAP) Pulse Ox O2 Delivery O2 Flow Rate FiO2 06/14/19 08:19 65 107/54 06/14/19 07:52 Room Air 06/14/19 07:26 97.3 20 93 97.3 Physical Exam General: Alert, Oriented X3, Cooperative, No acute distress, mild distress Heart: Regular rate Lungs: Clear Abdomen: Normal bowel sounds, Soft, No hepatosplenomegaly, No masses, Other (Diffuse pain, epigastric and RUQ) Extremities: No clubbing, No cyanosis, No edema, Normal pulses, No tenderness/swelling Skin: No rashes, No breakdown, No significant lesion Labs LABS Laboratory Tests Test 06/13/19 10:15 06/13/19 10:39 06/13/19 16:01 06/13/19 18:45 White Blood Count 6.6 x10^3/uL (4.0-11.0) Red Blood Count 4.45 x10^6/uL (3.50-5.40) Hemoglobin 13.0 g/dL (12.0-15.5) Hematocrit 39.6 % (36.0-47.0) Mean Corpuscular Volume 89 fL (79-100) Mean Corpuscular Hemoglobin 29 pg (25-35) Mean Corpuscular Hemoglobin Concent 33 g/dL (31-37) Red Cell Distribution Width 14.0 % (11.5-14.5) Platelet Count 324 x10^3/uL (140-400) Neutrophils (%) (Auto) 64 % (31-73) Lymphocytes (%) (Auto) 22 % (24-48) Monocytes (%) (Auto) 10 % (0-9) Eosinophils (%) (Auto) 2 % (0-3) Basophils (%) (Auto) 1 % (0-3) Neutrophils # (Auto) 4.2 x10^3/uL (1.8-7.7) Lymphocytes # (Auto) 1.5 x10^3/uL (1.0-4.8) Monocytes # (Auto) 0.7 x10^3/uL (0.0-1.1) Eosinophils # (Auto) 0.1 x10^3/uL (0.0-0.7) Basophils # (Auto) 0.1 x10^3/uL (0.0-0.2) Sodium Level 136 mmol/L (136-145) Potassium Level 4.7 mmol/L (3.5-5.1) Chloride Level 99 mmol/L (98-107) Carbon Dioxide Level 22 mmol/L (21-32) Anion Gap 15 (6-14) Blood Urea Nitrogen 62 mg/dL (7-20) Creatinine 5.1 mg/dL (0.6-1.0) Estimated GFR (Cockcroft-Gault) 8.2 BUN/Creatinine Ratio 12 (6-20) Glucose Level 271 mg/dL (70-99) 260 mg/dL (70-99) Lactic Acid Level 2.7 mmol/L (0.4-2.0) 0.9 mmol/L (0.4-2.0) Calcium Level 10.3 mg/dL (8.5-10.1) Total Bilirubin 0.4 mg/dL (0.2-1.0) Aspartate Amino Transf (AST/SGOT) 25 U/L (15-37) Alanine Aminotransferase (ALT/SGPT) 16 U/L (14-59) Alkaline Phosphatase 66 U/L (46-116) Creatine Kinase 43 U/L (26-192) Troponin I Quantitative < 0.017 ng/mL (0.000-0.055) Total Protein 7.7 g/dL (6.4-8.2) Albumin 3.4 g/dL (3.4-5.0) Albumin/Globulin Ratio 0.8 (1.0-1.7) Lipase 313 U/L (73-393) Bedside Hematocrit 36 % (36-40) Bedside Venous pH 7.30 (7.32-7.42) Bedside Venous pCO2 40 mmHg (41-51) Bedside Venous pO2 38 mmHg (20-40) Bedside Venous HCO3 20 mmol/L (24-28) Bedside Venous Blood Total CO2 21 mmol/L (21-32) Bedside Venous Blood O2 Saturation 66 % Bedside Venous Blood Base Excess -7 mmol/L (0-3) POC Venous Hemoglobin (Calc) 12.2 g/dL (12-15) Bedside FiO2 21 Bedside Sodium 137 mmol/L (135-145) Bedside Potassium 4.3 mmol/L (3.5-5.0) Bedside Ionized Calcium (Sameera) 1.26 mmol/L (1.13-1.32) Glucose (Fingerstick) 164 mg/dL (70-99) Test 06/13/19 19:10 06/13/19 20:37 06/14/19 04:30 06/14/19 07:31 Urine Collection Type Unknown Urine Color Yellow Urine Clarity Cloudy Urine pH 5.0 Urine Specific [place] 1.015 Urine Protein 30 mg/dL (NEG-TRACE) Urine Glucose (UA) 100 mg/dL (NEG) Urine Ketones (Stick) Negative mg/dL (NEG) Urine Blood Trace (NEG) Urine Nitrite Negative (NEG) Urine Bilirubin Negative (NEG) Urine Urobilinogen Dipstick 0.2 mg/dL (0.2 mg/dL) Urine Leukocyte Esterase Large (NEG) Urine RBC 3-5 /HPF (0-2) Urine WBC 20-40 /HPF (0-4) Urine Squamous Epithelial Cells Many /LPF Urine Renal Epithelial Cells Few /LPF Urine Amorphous Sediment Present /HPF Urine Bacteria Moderate /HPF (0-FEW) Urine Mucus Slight /LPF Glucose (Fingerstick) 189 mg/dL (70-99) 61 mg/dL (70-99) White Blood Count 4.8 x10^3/uL (4.0-11.0) Red Blood Count 3.44 x10^6/uL (3.50-5.40) Hemoglobin 10.2 g/dL (12.0-15.5) Hematocrit 30.4 % (36.0-47.0) Mean Corpuscular Volume 88 fL (79-100) Mean Corpuscular Hemoglobin 30 pg (25-35) Mean Corpuscular Hemoglobin Concent 34 g/dL (31-37) Red Cell Distribution Width 13.6 % (11.5-14.5) Platelet Count 216 x10^3/uL (140-400) Neutrophils (%) (Auto) 51 % (31-73) Lymphocytes (%) (Auto) 31 % (24-48) Monocytes (%) (Auto) 14 % (0-9) Eosinophils (%) (Auto) 3 % (0-3) Basophils (%) (Auto) 1 % (0-3) Neutrophils # (Auto) 2.4 x10^3/uL (1.8-7.7) Lymphocytes # (Auto) 1.5 x10^3/uL (1.0-4.8) Monocytes # (Auto) 0.7 x10^3/uL (0.0-1.1) Eosinophils # (Auto) 0.1 x10^3/uL (0.0-0.7) Basophils # (Auto) 0.0 x10^3/uL (0.0-0.2) Sodium Level 141 mmol/L (136-145) Potassium Level 3.3 mmol/L (3.5-5.1) Chloride Level 106 mmol/L (98-107) Carbon Dioxide Level 22 mmol/L (21-32) Anion Gap 13 (6-14) Blood Urea Nitrogen 60 mg/dL (7-20) Creatinine 6.0 mg/dL (0.6-1.0) Estimated GFR (Cockcroft-Gault) 6.8 Glucose Level 65 mg/dL (70-99) Calcium Level 8.3 mg/dL (8.5-10.1) Test 06/14/19 08:04 Glucose (Fingerstick) 81 mg/dL (70-99) Assessment and Plan Assessmemt and Plan Problems Medical Problems: (1) Acute renal failure Status: Acute Comment Review of Relevant I have reviewed the following items juan (where applicable) has been applied. Labs Laboratory Tests Test 06/13/19 10:15 06/13/19 10:39 06/13/19 16:01 06/13/19 18:45 White Blood Count 6.6 x10^3/uL (4.0-11.0) Red Blood Count 4.45 x10^6/uL (3.50-5.40) Hemoglobin 13.0 g/dL (12.0-15.5) Hematocrit 39.6 % (36.0-47.0) Mean Corpuscular Volume 89 fL (79-100) Mean Corpuscular Hemoglobin 29 pg (25-35) Mean Corpuscular Hemoglobin Concent 33 g/dL (31-37) Red Cell Distribution Width 14.0 % (11.5-14.5) Platelet Count 324 x10^3/uL (140-400) Neutrophils (%) (Auto) 64 % (31-73) Lymphocytes (%) (Auto) 22 % (24-48) Monocytes (%) (Auto) 10 % (0-9) Eosinophils (%) (Auto) 2 % (0-3) Basophils (%) (Auto) 1 % (0-3) Neutrophils # (Auto) 4.2 x10^3/uL (1.8-7.7) Lymphocytes # (Auto) 1.5 x10^3/uL (1.0-4.8) Monocytes # (Auto) 0.7 x10^3/uL (0.0-1.1) Eosinophils # (Auto) 0.1 x10^3/uL (0.0-0.7) Basophils # (Auto) 0.1 x10^3/uL (0.0-0.2) Sodium Level 136 mmol/L (136-145) Potassium Level 4.7 mmol/L (3.5-5.1) Chloride Level 99 mmol/L (98-107) Carbon Dioxide Level 22 mmol/L (21-32) Anion Gap 15 (6-14) Blood Urea Nitrogen 62 mg/dL (7-20) Creatinine 5.1 mg/dL (0.6-1.0) Estimated GFR (Cockcroft-Gault) 8.2 BUN/Creatinine Ratio 12 (6-20) Glucose Level 271 mg/dL (70-99) 260 mg/dL (70-99) Lactic Acid Level 2.7 mmol/L (0.4-2.0) 0.9 mmol/L (0.4-2.0) Calcium Level 10.3 mg/dL (8.5-10.1) Total Bilirubin 0.4 mg/dL (0.2-1.0) Aspartate Amino Transf (AST/SGOT) 25 U/L (15-37) Alanine Aminotransferase (ALT/SGPT) 16 U/L (14-59) Alkaline Phosphatase 66 U/L (46-116) Creatine Kinase 43 U/L (26-192) Troponin I Quantitative < 0.017 ng/mL (0.000-0.055) Total Protein 7.7 g/dL (6.4-8.2) Albumin 3.4 g/dL (3.4-5.0) Albumin/Globulin Ratio 0.8 (1.0-1.7) Lipase 313 U/L (73-393) Bedside Hematocrit 36 % (36-40) Bedside Venous pH 7.30 (7.32-7.42) Bedside Venous pCO2 40 mmHg (41-51) Bedside Venous pO2 38 mmHg (20-40) Bedside Venous HCO3 20 mmol/L (24-28) Bedside Venous Blood Total CO2 21 mmol/L (21-32) Bedside Venous Blood O2 Saturation 66 % Bedside Venous Blood Base Excess -7 mmol/L (0-3) POC Venous Hemoglobin (Calc) 12.2 g/dL (12-15) Bedside FiO2 21 Bedside Sodium 137 mmol/L (135-145) Bedside Potassium 4.3 mmol/L (3.5-5.0) Bedside Ionized Calcium (Sameera) 1.26 mmol/L (1.13-1.32) Glucose (Fingerstick) 164 mg/dL (70-99) Test 06/13/19 19:10 06/13/19 20:37 06/14/19 04:30 06/14/19 07:31 Urine Collection Type Unknown Urine Color Yellow Urine Clarity Cloudy Urine pH 5.0 Urine Specific [place] 1.015 Urine Protein 30 mg/dL (NEG-TRACE) Urine Glucose (UA) 100 mg/dL (NEG) Urine Ketones (Stick) Negative mg/dL (NEG) Urine Blood Trace (NEG) Urine Nitrite Negative (NEG) Urine Bilirubin Negative (NEG) Urine Urobilinogen Dipstick 0.2 mg/dL (0.2 mg/dL) Urine Leukocyte Esterase Large (NEG) Urine RBC 3-5 /HPF (0-2) Urine WBC 20-40 /HPF (0-4) Urine Squamous Epithelial Cells Many /LPF Urine Renal Epithelial Cells Few /LPF Urine Amorphous Sediment Present /HPF Urine Bacteria Moderate /HPF (0-FEW) Urine Mucus Slight /LPF Glucose (Fingerstick) 189 mg/dL (70-99) 61 mg/dL (70-99) White Blood Count 4.8 x10^3/uL (4.0-11.0) Red Blood Count 3.44 x10^6/uL (3.50-5.40) Hemoglobin 10.2 g/dL (12.0-15.5) Hematocrit 30.4 % (36.0-47.0) Mean Corpuscular Volume 88 fL (79-100) Mean Corpuscular Hemoglobin 30 pg (25-35) Mean Corpuscular Hemoglobin Concent 34 g/dL (31-37) Red Cell Distribution Width 13.6 % (11.5-14.5) Platelet Count 216 x10^3/uL (140-400) Neutrophils (%) (Auto) 51 % (31-73) Lymphocytes (%) (Auto) 31 % (24-48) Monocytes (%) (Auto) 14 % (0-9) Eosinophils (%) (Auto) 3 % (0-3) Basophils (%) (Auto) 1 % (0-3) Neutrophils # (Auto) 2.4 x10^3/uL (1.8-7.7) Lymphocytes # (Auto) 1.5 x10^3/uL (1.0-4.8) Monocytes # (Auto) 0.7 x10^3/uL (0.0-1.1) Eosinophils # (Auto) 0.1 x10^3/uL (0.0-0.7) Basophils # (Auto) 0.0 x10^3/uL (0.0-0.2) Sodium Level 141 mmol/L (136-145) Potassium Level 3.3 mmol/L (3.5-5.1) Chloride Level 106 mmol/L (98-107) Carbon Dioxide Level 22 mmol/L (21-32) Anion Gap 13 (6-14) Blood Urea Nitrogen 60 mg/dL (7-20) Creatinine 6.0 mg/dL (0.6-1.0) Estimated GFR (Cockcroft-Gault) 6.8 Glucose Level 65 mg/dL (70-99) Calcium Level 8.3 mg/dL (8.5-10.1) Test 06/14/19 08:04 Glucose (Fingerstick) 81 mg/dL (70-99) Laboratory Tests Test 06/13/19 10:15 06/13/19 10:39 06/13/19 16:01 06/13/19 18:45 White Blood Count 6.6 x10^3/uL (4.0-11.0) Red Blood Count 4.45 x10^6/uL (3.50-5.40) Hemoglobin 13.0 g/dL (12.0-15.5) Hematocrit 39.6 % (36.0-47.0) Mean Corpuscular Volume 89 fL (79-100) Mean Corpuscular Hemoglobin 29 pg (25-35) Mean Corpuscular Hemoglobin Concent 33 g/dL (31-37) Red Cell Distribution Width 14.0 % (11.5-14.5) Platelet Count 324 x10^3/uL (140-400) Neutrophils (%) (Auto) 64 % (31-73) Lymphocytes (%) (Auto) 22 % (24-48) Monocytes (%) (Auto) 10 % (0-9) Eosinophils (%) (Auto) 2 % (0-3) Basophils (%) (Auto) 1 % (0-3) Neutrophils # (Auto) 4.2 x10^3/uL (1.8-7.7) Lymphocytes # (Auto) 1.5 x10^3/uL (1.0-4.8) Monocytes # (Auto) 0.7 x10^3/uL (0.0-1.1) Eosinophils # (Auto) 0.1 x10^3/uL (0.0-0.7) Basophils # (Auto) 0.1 x10^3/uL (0.0-0.2) Sodium Level 136 mmol/L (136-145) Potassium Level 4.7 mmol/L (3.5-5.1) Chloride Level 99 mmol/L (98-107) Carbon Dioxide Level 22 mmol/L (21-32) Anion Gap 15 (6-14) Blood Urea Nitrogen 62 mg/dL (7-20) Creatinine 5.1 mg/dL (0.6-1.0) Estimated GFR (Cockcroft-Gault) 8.2 BUN/Creatinine Ratio 12 (6-20) Glucose Level 271 mg/dL (70-99) 260 mg/dL (70-99) Lactic Acid Level 2.7 mmol/L (0.4-2.0) 0.9 mmol/L (0.4-2.0) Calcium Level 10.3 mg/dL (8.5-10.1) Total Bilirubin 0.4 mg/dL (0.2-1.0) Aspartate Amino Transf (AST/SGOT) 25 U/L (15-37) Alanine Aminotransferase (ALT/SGPT) 16 U/L (14-59) Alkaline Phosphatase 66 U/L (46-116) Creatine Kinase 43 U/L (26-192) Troponin I Quantitative < 0.017 ng/mL (0.000-0.055) Total Protein 7.7 g/dL (6.4-8.2) Albumin 3.4 g/dL (3.4-5.0) Albumin/Globulin Ratio 0.8 (1.0-1.7) Lipase 313 U/L (73-393) Bedside Hematocrit 36 % (36-40) Bedside Venous pH 7.30 (7.32-7.42) Bedside Venous pCO2 40 mmHg (41-51) Bedside Venous pO2 38 mmHg (20-40) Bedside Venous HCO3 20 mmol/L (24-28) Bedside Venous Blood Total CO2 21 mmol/L (21-32) Bedside Venous Blood O2 Saturation 66 % Bedside Venous Blood Base Excess -7 mmol/L (0-3) POC Venous Hemoglobin (Calc) 12.2 g/dL (12-15) Bedside FiO2 21 Bedside Sodium 137 mmol/L (135-145) Bedside Potassium 4.3 mmol/L (3.5-5.0) Bedside Ionized Calcium (Sameera) 1.26 mmol/L (1.13-1.32) Glucose (Fingerstick) 164 mg/dL (70-99) Test 06/13/19 19:10 06/13/19 20:37 06/14/19 04:30 06/14/19 07:31 Urine Collection Type Unknown Urine Color Yellow Urine Clarity Cloudy Urine pH 5.0 Urine Specific [place] 1.015 Urine Protein 30 mg/dL (NEG-TRACE) Urine Glucose (UA) 100 mg/dL (NEG) Urine Ketones (Stick) Negative mg/dL (NEG) Urine Blood Trace (NEG) Urine Nitrite Negative (NEG) Urine Bilirubin Negative (NEG) Urine Urobilinogen Dipstick 0.2 mg/dL (0.2 mg/dL) Urine Leukocyte Esterase Large (NEG) Urine RBC 3-5 /HPF (0-2) Urine WBC 20-40 /HPF (0-4) Urine Squamous Epithelial Cells Many /LPF Urine Renal Epithelial Cells Few /LPF Urine Amorphous Sediment Present /HPF Urine Bacteria Moderate /HPF (0-FEW) Urine Mucus Slight /LPF Glucose (Fingerstick) 189 mg/dL (70-99) 61 mg/dL (70-99) White Blood Count 4.8 x10^3/uL (4.0-11.0) Red Blood Count 3.44 x10^6/uL (3.50-5.40) Hemoglobin 10.2 g/dL (12.0-15.5) Hematocrit 30.4 % (36.0-47.0) Mean Corpuscular Volume 88 fL (79-100) Mean Corpuscular Hemoglobin 30 pg (25-35) Mean Corpuscular Hemoglobin Concent 34 g/dL (31-37) Red Cell Distribution Width 13.6 % (11.5-14.5) Platelet Count 216 x10^3/uL (140-400) Neutrophils (%) (Auto) 51 % (31-73) Lymphocytes (%) (Auto) 31 % (24-48) Monocytes (%) (Auto) 14 % (0-9) Eosinophils (%) (Auto) 3 % (0-3) Basophils (%) (Auto) 1 % (0-3) Neutrophils # (Auto) 2.4 x10^3/uL (1.8-7.7) Lymphocytes # (Auto) 1.5 x10^3/uL (1.0-4.8) Monocytes # (Auto) 0.7 x10^3/uL (0.0-1.1) Eosinophils # (Auto) 0.1 x10^3/uL (0.0-0.7) Basophils # (Auto) 0.0 x10^3/uL (0.0-0.2) Sodium Level 141 mmol/L (136-145) Potassium Level 3.3 mmol/L (3.5-5.1) Chloride Level 106 mmol/L (98-107) Carbon Dioxide Level 22 mmol/L (21-32) Anion Gap 13 (6-14) Blood Urea Nitrogen 60 mg/dL (7-20) Creatinine 6.0 mg/dL (0.6-1.0) Estimated GFR (Cockcroft-Gault) 6.8 Glucose Level 65 mg/dL (70-99) Calcium Level 8.3 mg/dL (8.5-10.1) Test 06/14/19 08:04 Glucose (Fingerstick) 81 mg/dL (70-99) Medications Current Medications Sodium Chloride 1,000 ml @ 1,000 mls/hr 1X ONCE IV Last administered on 06/13/19at 10:15; Start 06/13/19 at 10:15; Stop 06/13/19 at 11:14; Status DC Ondansetron HCl (Zofran) 4 mg 1X ONCE IV Last administered on 06/13/19at 10:35; Start 06/13/19 at 10:45; Stop 06/13/19 at 10:46; Status DC Sodium Chloride 1,000 ml @ 125 mls/hr 1X ONCE IV Last administered on 06/13/19at 12:30; Start 06/13/19 at 12:30; Stop 06/13/19 at 20:29; Status DC Sodium Chloride 1,000 ml @ 125 mls/hr Q8H IV ; Start 06/13/19 at 13:02; Stop 06/14/19 at 13:01 Atorvastatin Calcium (Lipitor) 40 mg QHS PO Last administered on 06/13/19at 20:45; Start 06/13/19 at 21:00 Carvedilol (Coreg) 3.125 mg BIDWMEALS PO Last administered on 06/14/19at 08:19; Start 06/13/19 at 21:00 Fish Oil (Fish Oil) 1,000 mg DAILY PO Last administered on 06/14/19at 08:19; Start 1/26/20 at 09:00 Tramadol HCl (Ultram) 50 mg PRN Q6HRS PRN PO MILD PAIN 1-3 Last administered on 06/13/19at 20:45; Start 06/13/19 at 16:30 Insulin Glargine (Lantus Syringe) 8 unit QHS SQ Last administered on 06/13/19at 20:47; Start 06/13/19 at 21:00 Insulin Human Lispro (HumaLOG) 0-7 UNITS TIDACHC SQ ; Start 06/13/19 at 16:30 Dextrose (Dextrose 50%-Water Syringe) 12.5 gm PRN Q15MIN PRN IV SEE COMMENTS; Start 06/13/19 at 16:30 Dextrose (Iv Dextrose 5%) 250 ml PRN Q15MIN PRN IV SEE COMMENTS; Start 06/13/19 at 16:30 Ondansetron HCl (Zofran) 4 mg PRN Q4HRS PRN IV NAUSEA/VOMITING; Start 06/13/19 at 16:30 Acetaminophen (Tylenol) 650 mg PRN Q4HRS PRN PO TEMP OVER 100.4F OR MILD PAIN Last administered on 06/13/19at 23:11; Start 06/13/19 at 16:30 Docusate Sodium (Colace) 100 mg PRN BID PRN PO CONSTIPATION; Start 06/13/19 at 16:30 Heparin Sodium (Porcine) (Heparin Sodium) 5,000 unit Q8HRS SQ Last administered on 06/14/19at 06:04; Start 06/13/19 at 22:00 Hydromorphone HCl (Dilaudid) 0.4 mg PRN Q4HRS PRN IVP PAIN; Start 06/13/19 at 16:30 Sodium Bicarbonate (Sodium Bicarb Adult 8.4% Syr) 50 meq 1X ONCE IV Last administered on 06/13/19at 17:51; Start 06/13/19 at 17:30; Stop 06/13/19 at 17:31; Status DC Sodium Chloride 1,000 ml @ 150 mls/hr Q6H40M IV Last administered on 06/14/19at 08:18; Start 06/13/19 at 16:30 Sodium Bicarbonate (Sodium Bicarb Adult 8.4% Syr) 50 meq DAILY IV Last administered on 06/14/19at 08:18; Start 06/14/19 at 09:00 Active Scripts Active Reported Atorvastatin Calcium 40 Mg Tablet 1 Tab PO QHS Januvia (Sitagliptin Phosphate) 100 Mg Tablet 1 Tab PO DAILY Aspir 81 (Aspirin) 81 Mg Tablet.dr 81 Mg PO DAILY Fish Oil 1,000 Mg Capsule (Huron-3 Fatty Acids/Fish Oil) 1 Each Capsule 1 Each PO DAILY Tramadol Hcl 50 Mg Tablet 50 Mg PO PRN Carvedilol (Carvedilol) 3.125 Mg Tablet 3.125 Mg PO BID Lisinopril-Hctz 20-25 Mg Tab (Lisinopril/Hydrochlorothiazide) 1 Each Tablet 1 Each PO DAILY Glipizide 10 Mg Tablet 10 Mg PO BID Metformin Hcl 1,000 Mg Tablet 1,000 Mg PO BID Vitals/I & O Vital Sign - Last 24 Hours 06/13/19 06/13/19 06/13/19 06/13/19 10:00 10:30 11:00 11:30 Pulse 82 69 67 64 Resp 16 16 16 16 B/P (MAP) 71/50 (57) 96/45 (62) 98/46 (63) 104/40 (61) Pulse Ox 97 97 97 94 O2 Delivery Room Air Room Air Room Air Room Air 06/13/19 06/13/19 06/13/19 06/13/19 12:00 12:30 13:00 14:56 Temp 98.1 98.1 Pulse 70 70 83 Resp 16 16 18 B/P (MAP) 95/47 (63) 105/46 (65) 129/60 (83) Pulse Ox 98 97 99 O2 Delivery Room Air Room Air Room Air Room Air 06/13/19 06/13/19 06/13/19 06/13/19 15:00 19:25 20:08 20:45 Temp 97.3 98.0 97.3 98.0 Pulse 72 75 Resp 18 20 18 B/P (MAP) 136/60 (85) 137/63 (87) Pulse Ox 100 96 O2 Delivery Room Air Room Air Room Air Room Air 06/13/19 06/13/19 06/14/19 06/14/19 20:46 22:50 03:30 07:26 Temp 97.7 97.5 97.3 97.7 97.5 97.3 Pulse 75 72 62 64 Resp 20 20 20 B/P (MAP) 137/63 120/55 (76) 84/48 (60) 97/47 (64) Pulse Ox 94 95 93 O2 Delivery Room Air Room Air Room Air 06/14/19 06/14/19 07:52 08:19 Pulse 65 B/P (MAP) 107/54 O2 Delivery Room Air Intake and Output 0 06/13/19 06/13/19 06/14/19 15:00 23:00 07:00 Intake Total 1000 ml 300 ml Balance 1000 ml 300 ml FELIPE SCHULER MD Jun 14, 2019 09:55
[2019-06-14 11:00] VITALS: BP 113/56
--- NOTE | 2019-06-14 11:15 | PDOC2 ---
CONSULT Date of Consult Date of Consult DATE: 06/14/19 TIME: 11:13 Reason for Consult Reason for Consult: ELIZABETH Identification/Chief Complaint Chief Complaint Pain Rt upper abdomen Source Source: Chart review, Patient History of Present Illness Reason for Visit: Pt is a 78 yo CF w/PMHx CAD s/p CABG, tachybrady s/p PPM, ex-smoker, COPD, HTN, cardiomyopathy/CHF EF 30% (2012), anemia who presents with right upper quadrant abdominal pain and fatigue Patient reports she's been having some intermittent abdominal pain for the last 2 weeks, but worse over the last couple days. She had vomiting, diarrhea last week and poor appetite Reports her symptoms worsened again over the last 5 days. States any time she eats something, she vomits it back up shortly afterwards. States no fever, no change in diet. Her stools have been very dark recently. Denies ant urinary complaints- states had good UOP. Yesterday noted decrease uop but feels improved today (Per RN minmal uop and bladder scan no Residual- Pt insists that her uop is much improved) She states she has been on lisnopril for many years (didint know it has Diuretic as well) . She reports 1 of the meds (doesnt remember the name ) was doubled by PCP approx 2-3 weeks back Denies using NSAID's. Hx of fall 4-6 months back with Fracture. She states she had Labs done in Nov/Dec by PCP - and was told all her labs are normal . She is not aware of Dx of CKD Denies any OTC supplements . No Hx of ELIZABETH oin the past . Denies she is not aware of Kidney stones Abdominal US reveals cholelithiasis without cholecystitis or ductal dilation. CT abdomen shows possible enteritis with renal stones in left kidney, no obstructive uropathy. Past Medical History Cardiovascular: CAD, CHF, HTN, Hyperlipidemia Pulmonary: COPD GI: No pertinent hx Rheumatologic: No pertinent hx Infectious disease: No pertinent hx ENT: No pertinent hx Renal/: No pertinent hx Endocrine: Diabetes Dermatology: No pertinent hx Past Surgical History Past Surgical History: Pacemaker, CABG Family History Family History: Coronary Artery Disease, Diabetes, High Cholestrol, Hypertension Social History Quit (2011) ALCOHOL: none Drugs: None Current Problem List Problem List Problems Medical Problems: (1) Acute renal failure Status: Acute Current Medications Current Medications Current Medications Sodium Chloride 1,000 ml @ 1,000 mls/hr 1X ONCE IV Last administered on 06/13/19at 10:15; Admin Dose 1,000 MLS/HR; Start 06/13/19 at 10:15; Stop 06/13/19 at 11:14; Status DC Ondansetron HCl (Zofran) 4 mg 1X ONCE IV Last administered on 06/13/19at 10:35; Admin Dose 4 MG; Start 06/13/19 at 10:45; Stop 06/13/19 at 10:46; Status DC Sodium Chloride 1,000 ml @ 125 mls/hr 1X ONCE IV Last administered on 06/13/19at 12:30; Admin Dose 125 MLS/HR; Start 06/13/19 at 12:30; Stop 06/13/19 at 20:29; Status DC Sodium Chloride 1,000 ml @ 125 mls/hr Q8H IV ; Start 06/13/19 at 13:02; Stop 06/14/19 at 13:01 Atorvastatin Calcium (Lipitor) 40 mg QHS PO Last administered on 06/13/19at 20:45; Admin Dose 40 MG; Start 06/13/19 at 21:00 Carvedilol (Coreg) 3.125 mg BIDWMEALS PO Last administered on 06/14/19at 08:19; Admin Dose 3.125 MG; Start 06/13/19 at 21:00 Fish Oil (Fish Oil) 1,000 mg DAILY PO Last administered on 06/14/19at 08:19; Admin Dose 1,000 MG; Start 06/14/19 at 09:00 Tramadol HCl (Ultram) 50 mg PRN Q6HRS PRN PO MILD PAIN 1-3 Last administered on 06/13/19at 20:45; Admin Dose 50 MG; Start 06/13/19 at 16:30; Stop 06/14/19 at 09:56; Status DC Insulin Glargine (Lantus Syringe) 8 unit QHS SQ Last administered on 06/13/19at 20:47; Admin Dose 8 UNIT; Start 06/13/19 at 21:00 Insulin Human Lispro (HumaLOG) 0-7 UNITS TIDACHC SQ ; Start 06/13/19 at 16:30 Dextrose (Dextrose 50%-Water Syringe) 12.5 gm PRN Q15MIN PRN IV SEE COMMENTS; Start 06/13/19 at 16:30 Dextrose (Iv Dextrose 5%) 250 ml PRN Q15MIN PRN IV SEE COMMENTS; Start 06/13/19 at 16:30 Ondansetron HCl (Zofran) 4 mg PRN Q4HRS PRN IV NAUSEA/VOMITING; Start 06/13/19 at 16:30 Acetaminophen (Tylenol) 650 mg PRN Q4HRS PRN PO TEMP OVER 100.4F OR MILD PAIN Last administered on 06/13/19at 23:11; Admin Dose 650 MG; Start 06/13/19 at 16:30 Docusate Sodium (Colace) 100 mg PRN BID PRN PO CONSTIPATION; Start 06/13/19 at 16:30 Heparin Sodium (Porcine) (Heparin Sodium) 5,000 unit Q8HRS SQ Last administered on 06/14/19at 06:04; Admin Dose 5,000 UNIT; Start 06/13/19 at 22:00 Hydromorphone HCl (Dilaudid) 0.4 mg PRN Q4HRS PRN IVP PAIN; Start 06/13/19 at 16:30 Sodium Bicarbonate (Sodium Bicarb Adult 8.4% Syr) 50 meq 1X ONCE IV Last administered on 06/13/19at 17:51; Admin Dose 50 MEQ; Start 06/13/19 at 17:30; Stop 06/13/19 at 17:31; Status DC Sodium Chloride 1,000 ml @ 150 mls/hr Q6H40M IV Last administered on 06/14/19at 08:18; Admin Dose 150 MLS/HR; Start 06/13/19 at 16:30 Sodium Bicarbonate (Sodium Bicarb Adult 8.4% Syr) 50 meq DAILY IV Last administered on 06/14/19at 08:18; Admin Dose 50 MEQ; Start 06/14/19 at 09:00 Active Scripts Active Reported Atorvastatin Calcium 40 Mg Tablet 1 Tab PO QHS Januvia (Sitagliptin Phosphate) 100 Mg Tablet 1 Tab PO DAILY Aspir 81 (Aspirin) 81 Mg Tablet.dr 81 Mg PO DAILY Fish Oil 1,000 Mg Capsule ([place]-3 Fatty Acids/Fish Oil) 1 Each Capsule 1 Each PO DAILY Tramadol Hcl 50 Mg Tablet 50 Mg PO PRN Carvedilol (Carvedilol) 3.125 Mg Tablet 3.125 Mg PO BID Lisinopril-Hctz 20-25 Mg Tab (Lisinopril/Hydrochlorothiazide) 1 Each Tablet 1 Each PO DAILY Glipizide 10 Mg Tablet 10 Mg PO BID Metformin Hcl 1,000 Mg Tablet 1,000 Mg PO BID Allergies Allergies: Coded Allergies: iodine (Verified Allergy, Severe, blisters leaving scars, 10/10/17) ROS Review of System Per HPI Physical Exam Physical Exam General: NAD, sitting up in the chair HEENT: OM dryish Neck supple Lungs: Clear to auscultation, Non labored Heart: S1S2, RRR, no thrills, no rubs, no gallops, no murmurs Abdomen: Normal bowel sounds, Soft, Extremities: No clubbing, No cyanosis, No edema, Skin: No rashes Neuro: grossly normal Psych/Mental Status: Mental status NL, Mood NL No smallwood , No SP or CVA tenderness Vital Signs Vital Signs Date Time Temp Pulse Resp B/P (MAP) Pulse Ox O2 Delivery O2 Flow Rate FiO2 06/14/19 08:19 65 107/54 06/14/19 07:52 Room Air 06/14/19 07:26 97.3 20 93 97.3 Assessment & Plan ELIZABETH- suspect ATN sec to Poor PO intake/Vomiting UA with WBC's, ? UTI, repeat UA E-Lytes stable, No emergent indication for UNIT AIDE Ct scan with Non Obstructive renal calculus, Get Renal US IVF, supportive care, Avoid nephrotoxins, Strict I/O (Bladder scan prn) Hold PEDRO-I /HCTZ Intractable abdominal pain - Reports better Cholelithiasis on CT reported Nausea, vomiting, diarrhea - likely gastroenteritis, resolved ? UTI per Primary CAD s/p CABG Tachybrady s/p PPM - will maintain telemetry HTN - BP low Hoding HCTZ/Lisinopril Cardiomyopathy - ischemic per history. Cont meds CHF EF 30% (2012) - no recent records available Anemia Renal Calculi- Reported on CT, pt denies History There are renal calculi, largest on the left. Some calcifications of the renal hilar regions are apparently vascular in etiology. Discussed at great length with Pt, daughter and RN Labs Labs Laboratory Tests Test 06/13/19 10:15 06/13/19 10:39 06/13/19 16:01 06/13/19 18:45 White Blood Count 6.6 x10^3/uL (4.0-11.0) Red Blood Count 4.45 x10^6/uL (3.50-5.40) Hemoglobin 13.0 g/dL (12.0-15.5) Hematocrit 39.6 % (36.0-47.0) Mean Corpuscular Volume 89 fL (79-100) Mean Corpuscular Hemoglobin 29 pg (25-35) Mean Corpuscular Hemoglobin Concent 33 g/dL (31-37) Red Cell Distribution Width 14.0 % (11.5-14.5) Platelet Count 324 x10^3/uL (140-400) Neutrophils (%) (Auto) 64 % (31-73) Lymphocytes (%) (Auto) 22 % (24-48) Monocytes (%) (Auto) 10 % (0-9) Eosinophils (%) (Auto) 2 % (0-3) Basophils (%) (Auto) 1 % (0-3) Neutrophils # (Auto) 4.2 x10^3/uL (1.8-7.7) Lymphocytes # (Auto) 1.5 x10^3/uL (1.0-4.8) Monocytes # (Auto) 0.7 x10^3/uL (0.0-1.1) Eosinophils # (Auto) 0.1 x10^3/uL (0.0-0.7) Basophils # (Auto) 0.1 x10^3/uL (0.0-0.2) Sodium Level 136 mmol/L (136-145) Potassium Level 4.7 mmol/L (3.5-5.1) Chloride Level 99 mmol/L (98-107) Carbon Dioxide Level 22 mmol/L (21-32) Anion Gap 15 (6-14) Blood Urea Nitrogen 62 mg/dL (7-20) Creatinine 5.1 mg/dL (0.6-1.0) Estimated GFR (Cockcroft-Gault) 8.2 BUN/Creatinine Ratio 12 (6-20) Glucose Level 271 mg/dL (70-99) 260 mg/dL (70-99) Lactic Acid Level 2.7 mmol/L (0.4-2.0) 0.9 mmol/L (0.4-2.0) Calcium Level 10.3 mg/dL (8.5-10.1) Total Bilirubin 0.4 mg/dL (0.2-1.0) Aspartate Amino Transf (AST/SGOT) 25 U/L (15-37) Alanine Aminotransferase (ALT/SGPT) 16 U/L (14-59) Alkaline Phosphatase 66 U/L (46-116) Creatine Kinase 43 U/L (26-192) Troponin I Quantitative < 0.017 ng/mL (0.000-0.055) Total Protein 7.7 g/dL (6.4-8.2) Albumin 3.4 g/dL (3.4-5.0) Albumin/Globulin Ratio 0.8 (1.0-1.7) Lipase 313 U/L (73-393) Bedside Hematocrit 36 % (36-40) Bedside Venous pH 7.30 (7.32-7.42) Bedside Venous pCO2 40 mmHg (41-51) Bedside Venous pO2 38 mmHg (20-40) Bedside Venous HCO3 20 mmol/L (24-28) Bedside Venous Blood Total CO2 21 mmol/L (21-32) Bedside Venous Blood O2 Saturation 66 % Bedside Venous Blood Base Excess -7 mmol/L (0-3) POC Venous Hemoglobin (Calc) 12.2 g/dL (12-15) Bedside FiO2 21 Bedside Sodium 137 mmol/L (135-145) Bedside Potassium 4.3 mmol/L (3.5-5.0) Bedside Ionized Calcium (Sameera) 1.26 mmol/L (1.13-1.32) Glucose (Fingerstick) 164 mg/dL (70-99) Test 06/13/19 19:10 06/13/19 20:37 06/14/19 04:30 06/14/19 07:31 Urine Collection Type Unknown Urine Color Yellow Urine Clarity Cloudy Urine pH 5.0 Urine Specific [place] 1.015 Urine Protein 30 mg/dL (NEG-TRACE) Urine Glucose (UA) 100 mg/dL (NEG) Urine Ketones (Stick) Negative mg/dL (NEG) Urine Blood Trace (NEG) Urine Nitrite Negative (NEG) Urine Bilirubin Negative (NEG) Urine Urobilinogen Dipstick 0.2 mg/dL (0.2 mg/dL) Urine Leukocyte Esterase Large (NEG) Urine RBC 3-5 /HPF (0-2) Urine WBC 20-40 /HPF (0-4) Urine Squamous Epithelial Cells Many /LPF Urine Renal Epithelial Cells Few /LPF Urine Amorphous Sediment Present /HPF Urine Bacteria Moderate /HPF (0-FEW) Urine Mucus Slight /LPF Glucose (Fingerstick) 189 mg/dL (70-99) 61 mg/dL (70-99) White Blood Count 4.8 x10^3/uL (4.0-11.0) Red Blood Count 3.44 x10^6/uL (3.50-5.40) Hemoglobin 10.2 g/dL (12.0-15.5) Hematocrit 30.4 % (36.0-47.0) Mean Corpuscular Volume 88 fL (79-100) Mean Corpuscular Hemoglobin 30 pg (25-35) Mean Corpuscular Hemoglobin Concent 34 g/dL (31-37) Red Cell Distribution Width 13.6 % (11.5-14.5) Platelet Count 216 x10^3/uL (140-400) Neutrophils (%) (Auto) 51 % (31-73) Lymphocytes (%) (Auto) 31 % (24-48) Monocytes (%) (Auto) 14 % (0-9) Eosinophils (%) (Auto) 3 % (0-3) Basophils (%) (Auto) 1 % (0-3) Neutrophils # (Auto) 2.4 x10^3/uL (1.8-7.7) Lymphocytes # (Auto) 1.5 x10^3/uL (1.0-4.8) Monocytes # (Auto) 0.7 x10^3/uL (0.0-1.1) Eosinophils # (Auto) 0.1 x10^3/uL (0.0-0.7) Basophils # (Auto) 0.0 x10^3/uL (0.0-0.2) Sodium Level 141 mmol/L (136-145) Potassium Level 3.3 mmol/L (3.5-5.1) Chloride Level 106 mmol/L (98-107) Carbon Dioxide Level 22 mmol/L (21-32) Anion Gap 13 (6-14) Blood Urea Nitrogen 60 mg/dL (7-20) Creatinine 6.0 mg/dL (0.6-1.0) Estimated GFR (Cockcroft-Gault) 6.8 Glucose Level 65 mg/dL (70-99) Calcium Level 8.3 mg/dL (8.5-10.1) Test 06/14/19 08:04 Glucose (Fingerstick) 81 mg/dL (70-99) Laboratory Tests Test 06/13/19 16:01 06/13/19 18:45 06/13/19 19:10 06/13/19 20:37 Glucose (Fingerstick) 164 mg/dL (70-99) 189 mg/dL (70-99) Lactic Acid Level 0.9 mmol/L (0.4-2.0) Urine Collection Type Unknown Urine Color Yellow Urine Clarity Cloudy Urine pH 5.0 Urine Specific [place] 1.015 Urine Protein 30 mg/dL (NEG-TRACE) Urine Glucose (UA) 100 mg/dL (NEG) Urine Ketones (Stick) Negative mg/dL (NEG) Urine Blood Trace (NEG) Urine Nitrite Negative (NEG) Urine Bilirubin Negative (NEG) Urine Urobilinogen Dipstick 0.2 mg/dL (0.2 mg/dL) Urine Leukocyte Esterase Large (NEG) Urine RBC 3-5 /HPF (0-2) Urine WBC 20-40 /HPF (0-4) Urine Squamous Epithelial Cells Many /LPF Urine Renal Epithelial Cells Few /LPF Urine Amorphous Sediment Present /HPF Urine Bacteria Moderate /HPF (0-FEW) Urine Mucus Slight /LPF Test 06/14/19 04:30 06/14/19 07:31 06/14/19 08:04 White Blood Count 4.8 x10^3/uL (4.0-11.0) Red Blood Count 3.44 x10^6/uL (3.50-5.40) Hemoglobin 10.2 g/dL (12.0-15.5) Hematocrit 30.4 % (36.0-47.0) Mean Corpuscular Volume 88 fL (79-100) Mean Corpuscular Hemoglobin 30 pg (25-35) Mean Corpuscular Hemoglobin Concent 34 g/dL (31-37) Red Cell Distribution Width 13.6 % (11.5-14.5) Platelet Count 216 x10^3/uL (140-400) Neutrophils (%) (Auto) 51 % (31-73) Lymphocytes (%) (Auto) 31 % (24-48) Monocytes (%) (Auto) 14 % (0-9) Eosinophils (%) (Auto) 3 % (0-3) Basophils (%) (Auto) 1 % (0-3) Neutrophils # (Auto) 2.4 x10^3/uL (1.8-7.7) Lymphocytes # (Auto) 1.5 x10^3/uL (1.0-4.8) Monocytes # (Auto) 0.7 x10^3/uL (0.0-1.1) Eosinophils # (Auto) 0.1 x10^3/uL (0.0-0.7) Basophils # (Auto) 0.0 x10^3/uL (0.0-0.2) Sodium Level 141 mmol/L (136-145) Potassium Level 3.3 mmol/L (3.5-5.1) Chloride Level 106 mmol/L (98-107) Carbon Dioxide Level 22 mmol/L (21-32) Anion Gap 13 (6-14) Blood Urea Nitrogen 60 mg/dL (7-20) Creatinine 6.0 mg/dL (0.6-1.0) Estimated GFR (Cockcroft-Gault) 6.8 Glucose Level 65 mg/dL (70-99) Calcium Level 8.3 mg/dL (8.5-10.1) Glucose (Fingerstick) 61 mg/dL (70-99) 81 mg/dL (70-99) Review All relevant outside records, renal labs, imaging studies, telemetry/EKG's were reviewed. Images Images CT sca n 1. There is no significant inflammatory type change about the bowel although it is difficult to exclude mild long segment colonic wall thickening of the transverse and descending colon and also small bowel thickening in the left abdomen as could be seen with enterocolitis in the appropriate clinical setting. There is no convincing evidence of acute appendicitis. 2. There is calcified plaque of the abdominal aorta and branches, more significant stenosis of the right common iliac artery and proximal left external iliac artery. 3. There is cholelithiasis. 4. There are renal calculi, largest on the left. Some calcifications of the renal hilar regions are apparently vascular in etiology. TOÑO THOMAS MD Jun 14, 2019 11:15
--- NOTE | 2019-06-14 14:51 | RAD ---
RENAL COMPLETE BILATERAL History: Acute kidney injury Comparison: None. Findings: Multiple sonographic images of the kidneys and urinary bladder are submitted. Right kidney measured 11.6 x 4.6 x 5.5 cm. Left kidney measured 10.5 x 4.8 x 5.8 cm. There is no hydronephrosis of either kidney. Urinary bladder morphology is within normal limits. Impression: 1. No significant abnormality is demonstrated. Electronically signed by: Grover Franco MD (06/14/2019 2:48 PM) [facility]
[2019-06-14 15:59] VITALS: BP 120/55
--- NOTE | 2019-06-14 16:46 | EKG ---
[facility] [address] [place] [address] Test Date: 2019-06-13 Test Time: 10:12:58 Pat Name: NICOLLE FLORENTINO Department: Room: Gender: F [employer]: : 1940 Requested By: SPENCER CORMIER Order Number: [id number] Reading MD: Measurements Intervals Nicholls Rate: 84 P: 52 AK: 96 QRS: -16 QRSD: 166 T: 168 QT: 426 QTc: 507 Interpretive Statements SINUS RHYTHM LEFTWARD AXIS NON SPECIFIC INTRAVENTRICULAR BLOCK ABNORMAL ECG RI6.01 No previous ECG available for comparison
[2019-06-14 19:30] VITALS: BP 109/56
[2019-06-14] MEDS: ATORVASTATIN CALCIUM 40 MG TABLET. PO SCH (20:15)
[2019-06-14] MEDS: INSULIN GLARGINE SYRINGE. SQ SCH (20:22)
[2019-06-14] MEDS ORDERED: INSULIN GLARGINE SYRINGE. SQ SCH (21:00)
[2019-06-14 22:55] VITALS: BP 115/53
[2019-06-14] MEDS: ACETAMINOPHEN 325 MG TABLET. PO PRN (22:57)
[2019-06-15 02:21] LABS: BILIRUBIN,URINE NEGATIVE (NEG); CLARITY,URINE CLEAR; COLOR,URINE YELLOW; NITRITE,URINE NEGATIVE (NEG); PROTEIN,URINE NEGATIVE (NEG-TRACE); UROBILINOGEN,URINE 0.2 mg/dL (0.2 mg/dL)
[2019-06-15 02:31] LABS: SQUAMOUS EPITHELIAL CELL,UR MOD /LPF
[2019-06-15 02:32] LABS: BACTERIA,URINE FEW /HPF (0-FEW)
[2019-06-15 02:33] LABS: AMORPHOUS SEDIMENT,UR PRESENT /HPF
[2019-06-15 02:55] VITALS: BP 118/57
[2019-06-15] MEDS: IV NORMAL SALINE 1000ML BAG 1,000 ML IV SCH ×4 (04:16→19:37)
[2019-06-15] MEDS: HEPARIN for SUB-Q USE 5,000 UNIT/ML VIAL. SQ SCH ×3 (05:18→20:56)
[2019-06-15 07:00] VITALS: BP 127/61
[2019-06-15 07:03] LABS: ALBUMIN 2.3 g/dL (3.4-5.0); CALCIUM 7.6 mg/dL (8.5-10.1); CREATININE 5.2 mg/dL (0.6-1.0); POTASSIUM 3.7 mmol/L (3.5-5.1)
[2019-06-15] MEDS: OMEGA-3 FATTY ACIDS/FISH OIL 1,000 MG CAPSULE. PO SCH (09:32)
[2019-06-15] MEDS: CARVEDILOL 3.125 MG TABLET. PO SCH ×2 (09:32→17:26)
[2019-06-15] MEDS: INSULIN LISPRO 300 UNITS/3 ML VIAL. SQ SCH ×4 (09:33→20:56)
[2019-06-15] MEDS: SODIUM BICARB ADULT 8.4% 50 MEQ/50 ML DISP.SYRIN. IV SCH (09:33)
[2019-06-15 10:51] VITALS: BP 147/63
--- NOTE | 2019-06-15 12:08 | PDOC ---
Renal-Progress Notes Subjective Notes Notes LESS DIARRHEA History of Present Illness Hx of present illness FEELING BETTER Vitals Vitals Vital Signs Date Time Temp Pulse Resp B/P (MAP) Pulse Ox O2 Delivery O2 Flow Rate FiO2 06/15/19 10:51 98.1 66 18 147/63 (91) 98 Room Air 98.1 Weight Weight [ ] I.O. Intake and Output Intake and Output 06/15/19 07:00 Intake Total 2032 ml Output Total 1500 ml Balance 532 ml Intake Oral 1032 ml IV Total 1000 ml Output Urine Total 1500 ml # Voids 50 # Bowel Movements 2 Labs Labs Laboratory Tests Test 06/14/19 12:18 06/14/19 17:15 06/14/19 20:14 06/15/19 01:45 Glucose (Fingerstick) 308 mg/dL (70-99) 258 mg/dL (70-99) 193 mg/dL (70-99) Urine Collection Type Unknown Urine Color Yellow Urine Clarity Clear Urine pH 5.0 Urine Specific [place] 1.010 Urine Protein Negative mg/dL (NEG-TRACE) Urine Glucose (UA) Negative mg/dL (NEG) Urine Ketones (Stick) Negative mg/dL (NEG) Urine Blood Trace (NEG) Urine Nitrite Negative (NEG) Urine Bilirubin Negative (NEG) Urine Urobilinogen Dipstick 0.2 mg/dL (0.2 mg/dL) Urine Leukocyte Esterase Moderate (NEG) Urine RBC 1-2 /HPF (0-2) Urine WBC 11-20 /HPF (0-4) Urine Squamous Epithelial Cells Mod /LPF Urine Renal Epithelial Cells Occ /LPF Urine Amorphous Sediment Present /HPF Urine Bacteria Few /HPF (0-FEW) Urine Mucus Slight /LPF Test 06/15/19 06:14 06/15/19 07:47 06/15/19 11:25 Sodium Level 144 mmol/L (136-145) Potassium Level 3.7 mmol/L (3.5-5.1) Chloride Level 112 mmol/L (98-107) Carbon Dioxide Level 19 mmol/L (21-32) Anion Gap 13 (6-14) Blood Urea Nitrogen 50 mg/dL (7-20) Creatinine 5.2 mg/dL (0.6-1.0) Estimated GFR (Cockcroft-Gault) 8.0 Glucose Level 156 mg/dL (70-99) Calcium Level 7.6 mg/dL (8.5-10.1) Phosphorus Level 5.0 mg/dL (2.6-4.7) Albumin 2.3 g/dL (3.4-5.0) Glucose (Fingerstick) 149 mg/dL (70-99) 218 mg/dL (70-99) Review of Systems Constitutional: yes: weakness, alert, oriented Ears/Nose/Throat: Yes: no symptom reported Eyes: Yes: no symptom reported Pulmonary: Yes no symptom reported Cardiovascular: Yes no symptom reported Gastrointestional: Yes: nausea, vomiting, diarrhea Genitourinary: Yes: no symptom reported Musculoskeletal: Yes: muscle stiffness Skin: Yes no symptom reported Psychiatric/Neurological: Yes: no symptom reported Endocrine: Yes: no symptom reported Hematologic/Lymphatic: Yes: no symptom reported Physical Exam General Appearance: no apparent distress Skin: warm Respiratory: bilateral CTA Heart: S1S2 Abdomen: soft, bowel sounds present Genitourinary: bladder flat Extremities: pulses present Neurology: alert Assessment Assessment IMP ELIZABETH-ATN WITH CR DOWN TO 5.2 FROM 6.0 DEHYDRATION ABD PAIN-BETTER GASTROENTERITIS HYPOTENSION HX OF CM WITH EF OF 30% LAST IN 2012 NON OBSTRUCTING RENAL CALCULI PLAN CONT WITH HYDRATION UA SUGGESTIVE FOR UTI CONSIDER ANTIBIOTICS AVOID PEDRO-I AND DIURETICS UPDATED FAMILY WILL FOLLOW ZOHRA SORIANO MD Jun 15, 2019 12:08
--- NOTE | 2019-06-15 12:12 | PDOC ---
[employer] PROGRESS NOTE Chief Complaint Chief Complaint Intractable abdominal pain Nausea, vomiting, diarrhea ELIZABETH CAD s/p CABG Tachybrady s/p PPM COPD HTN Cardiomyopathy CHF EF 30% (2012) LBBB History of anemia History of Present Illness History of Present Illness 06/15/19 Patient seen and examined Patient laying in bed She states she is doing better Doesn't have any new complaints DW nurse DW with daughter Vitals/I&O Vitals/I&O: Vital Signs Date Time Temp Pulse Resp B/P (MAP) Pulse Ox O2 Delivery O2 Flow Rate FiO2 06/15/19 10:51 98.1 66 18 147/63 (91) 98 Room Air 98.1 I & O 06/14/19 06/14/19 06/15/19 15:00 23:00 07:00 Intake Total 472 ml 120 ml 1440 ml Output Total 300 ml 1200 ml Balance 472 ml -180 ml 240 ml Physical Exam General: Alert, Oriented X3, Cooperative, No acute distress, mild distress Heart: Regular rate Lungs: Clear Abdomen: Normal bowel sounds, Soft, No hepatosplenomegaly, No masses, Other (Diffuse pain, epigastric and RUQ) Extremities: No clubbing, No cyanosis, Normal pulses, No tenderness/swelling, Other (+1 edema LE bilaterally) Skin: No rashes, No breakdown, No significant lesion Labs Labs: Laboratory Tests Test 06/14/19 12:18 06/14/19 17:15 06/14/19 20:14 06/15/19 01:45 Glucose (Fingerstick) 308 mg/dL (70-99) 258 mg/dL (70-99) 193 mg/dL (70-99) Urine Collection Type Unknown Urine Color Yellow Urine Clarity Clear Urine pH 5.0 Urine Specific [place] 1.010 Urine Protein Negative mg/dL (NEG-TRACE) Urine Glucose (UA) Negative mg/dL (NEG) Urine Ketones (Stick) Negative mg/dL (NEG) Urine Blood Trace (NEG) Urine Nitrite Negative (NEG) Urine Bilirubin Negative (NEG) Urine Urobilinogen Dipstick 0.2 mg/dL (0.2 mg/dL) Urine Leukocyte Esterase Moderate (NEG) Urine RBC 1-2 /HPF (0-2) Urine WBC 11-20 /HPF (0-4) Urine Squamous Epithelial Cells Mod /LPF Urine Renal Epithelial Cells Occ /LPF Urine Amorphous Sediment Present /HPF Urine Bacteria Few /HPF (0-FEW) Urine Mucus Slight /LPF Test 06/15/19 06:14 06/15/19 07:47 06/15/19 11:25 Sodium Level 144 mmol/L (136-145) Potassium Level 3.7 mmol/L (3.5-5.1) Chloride Level 112 mmol/L (98-107) Carbon Dioxide Level 19 mmol/L (21-32) Anion Gap 13 (6-14) Blood Urea Nitrogen 50 mg/dL (7-20) Creatinine 5.2 mg/dL (0.6-1.0) Estimated GFR (Cockcroft-Gault) 8.0 Glucose Level 156 mg/dL (70-99) Calcium Level 7.6 mg/dL (8.5-10.1) Phosphorus Level 5.0 mg/dL (2.6-4.7) Albumin 2.3 g/dL (3.4-5.0) Glucose (Fingerstick) 149 mg/dL (70-99) 218 mg/dL (70-99) Review of Systems Review of Systems: Denies SOB Denies Numbness and tingling Assessment and Plan Assessmemt and Plan Problems Medical Problems: (1) Acute renal failure Status: Acute Assessment Intractable abdominal pain Nausea, vomiting, diarrhea - likely gastroenteritis, ELIZABETH - likely vasomotor nephropathy, will hydrate. If no improvement she notes she would NEVER go on dialysis. CAD s/p CABG Tachybrady s/p PPM Ex-smoker COPD HLD HTN Cardiomyopathy - ischemic per history CHF EF 30% (2012) LBBB History of anemia UTI Plan Trend labs, BUN and Cr improving Nephrology following Rocephin 1 gram IV qd IV fluids DVT prophylaxis DNR/DNI Home meds Comment Review of Relevant I have reviewed the following items juan (where applicable) has been applied. Medications: Current Medications Medications (Trade) Dose Ordered Sig/James Route PRN Reason Start Time Stop Time Status Last Admin Dose Admin Insulin Glargine (Lantus Syringe) 5 unit QHS SQ 06/14/19 21:00 06/14/19 20:22 MARÍA HALL III DO Jun 15, 2019 12:12
[2019-06-15] MEDS: cefTRIAXone IV Push 1 GM VIAL. IVP SCH (12:42)
--- NOTE | 2019-06-15 14:31 | NUR ---
SS following for discharge planning. SS reviewed pt chart. Pt is from home and is currently on room air. PT/OT recommended [facility]. SS met with pt and pt's family in room to discuss [facility] and discharge planning. Pt's RN present. Pt reported that she does not want [facility] unit or home healthcare and wants to return to home. SS will continue to follow for discharge planning.
[2019-06-15 15:00] VITALS: BP_SYST 147; BP_SYST 148; BP_DIAS 63; BP_DIAS 70
[2019-06-15 19:30] VITALS: BP 164/76
[2019-06-15] MEDS: LACTOBACILLUS RHAMNOSUS GG 1 CAPSULE. PO SCH (20:47)
[2019-06-15] MEDS: ATORVASTATIN CALCIUM 40 MG TABLET. PO SCH (20:47)
[2019-06-15] MEDS: INSULIN GLARGINE SYRINGE. SQ SCH (20:57)
[2019-06-15] MEDS: ACETAMINOPHEN 325 MG TABLET. PO PRN (22:06)
[2019-06-15 23:05] VITALS: BP 150/65
[2019-06-16 03:15] VITALS: BP 139/63
[2019-06-16] MEDS: IV NORMAL SALINE 1000ML BAG 1,000 ML IV SCH (04:55)
[2019-06-16] MEDS: HEPARIN for SUB-Q USE 5,000 UNIT/ML VIAL. SQ SCH (05:02)
[2019-06-16 07:00] VITALS: BP 150/67
[2019-06-16] MEDS: LACTOBACILLUS RHAMNOSUS GG 1 CAPSULE. PO SCH (08:31)
[2019-06-16] MEDS: OMEGA-3 FATTY ACIDS/FISH OIL 1,000 MG CAPSULE. PO SCH (08:31)
[2019-06-16] MEDS: CARVEDILOL 3.125 MG TABLET. PO SCH (08:32)
[2019-06-16] MEDS: SODIUM BICARB ADULT 8.4% 50 MEQ/50 ML DISP.SYRIN. IV SCH (08:32)
[2019-06-16] MEDS: INSULIN LISPRO 300 UNITS/3 ML VIAL. SQ SCH ×2 (08:44→12:26)
[2019-06-16 09:05] LABS: BASO # 0.1 x10^3/uL (0.0-0.2); BASO % 1 % (0-3); EOS # 0.3 x10^3/uL (0.0-0.7); EOS % 6 % (0-3); HEMATOCRIT 31.9 % (36.0-47.0); HEMOGLOBIN 10.7 g/dL (12.0-15.5); LYMPH # 1.2 x10^3/uL (1.0-4.8); LYMPH % 22 % (24-48); MEAN CORPUSCULAR HEMOGLOBIN 29 pg (25-35); MEAN CORPUSCULAR HGB CONC 33 g/dL (31-37); MEAN CORPUSCULAR VOLUME 88 fL (79-100); MONO # 0.6 x10^3/uL (0.0-1.1); MONO % 12 % (0-9); NEUT # 3.1 x10^3/uL (1.8-7.7); NEUT % 59 % (31-73); PLATELET COUNT 235 x10^3/uL (140-400); RED BLOOD COUNT 3.64 x10^6/uL (3.50-5.40); RED CELL DISTRIBUTION WIDTH 13.5 % (11.5-14.5); WHITE BLOOD COUNT 5.3 x10^3/uL (4.0-11.0)
[2019-06-16 09:14] LABS: CALCIUM 8.3 mg/dL (8.5-10.1); CREATININE 2.3 mg/dL (0.6-1.0); GFR 20.5; MAGNESIUM 1.3 mg/dL (1.8-2.4); PHOSPHORUS 2.9 mg/dL (2.6-4.7); POTASSIUM 3.6 mmol/L (3.5-5.1)
[2019-06-16] MEDS ORDERED: MAGNESIUM SULFATE 2GM 50 ML IV ONE (10:15)
--- NOTE | 2019-06-16 10:33 | PDOC ---
Renal-Progress Notes Subjective Notes Notes FEELS WELL History of Present Illness Hx of present illness IMPROVED Vitals Vitals Vital Signs Date Time Temp Pulse Resp B/P (MAP) Pulse Ox O2 Delivery O2 Flow Rate FiO2 06/16/19 08:32 65 150/67 06/16/19 08:00 Room Air 06/16/19 07:00 97.7 18 97 97.7 Weight Weight [ ] I.O. Intake and Output Intake and Output 06/16/19 07:00 Intake Total 2920 ml Output Total 5300 ml Balance -2380 ml Intake Oral 920 ml IV Total 2000 ml Output Urine Total 5300 ml Labs Labs Laboratory Tests Test 06/15/19 11:25 06/15/19 17:02 06/15/19 20:50 06/16/19 07:55 Glucose (Fingerstick) 218 mg/dL (70-99) 300 mg/dL (70-99) 233 mg/dL (70-99) 145 mg/dL (70-99) Test 06/16/19 08:39 White Blood Count 5.3 x10^3/uL (4.0-11.0) Red Blood Count 3.64 x10^6/uL (3.50-5.40) Hemoglobin 10.7 g/dL (12.0-15.5) Hematocrit 31.9 % (36.0-47.0) Mean Corpuscular Volume 88 fL (79-100) Mean Corpuscular Hemoglobin 29 pg (25-35) Mean Corpuscular Hemoglobin Concent 33 g/dL (31-37) Red Cell Distribution Width 13.5 % (11.5-14.5) Platelet Count 235 x10^3/uL (140-400) Neutrophils (%) (Auto) 59 % (31-73) Lymphocytes (%) (Auto) 22 % (24-48) Monocytes (%) (Auto) 12 % (0-9) Eosinophils (%) (Auto) 6 % (0-3) Basophils (%) (Auto) 1 % (0-3) Neutrophils # (Auto) 3.1 x10^3/uL (1.8-7.7) Lymphocytes # (Auto) 1.2 x10^3/uL (1.0-4.8) Monocytes # (Auto) 0.6 x10^3/uL (0.0-1.1) Eosinophils # (Auto) 0.3 x10^3/uL (0.0-0.7) Basophils # (Auto) 0.1 x10^3/uL (0.0-0.2) Sodium Level 147 mmol/L (136-145) Potassium Level 3.6 mmol/L (3.5-5.1) Chloride Level 112 mmol/L (98-107) Carbon Dioxide Level 22 mmol/L (21-32) Anion Gap 13 (6-14) Blood Urea Nitrogen 25 mg/dL (7-20) Creatinine 2.3 mg/dL (0.6-1.0) Estimated GFR (Cockcroft-Gault) 20.5 Glucose Level 157 mg/dL (70-99) Calcium Level 8.3 mg/dL (8.5-10.1) Phosphorus Level 2.9 mg/dL (2.6-4.7) Magnesium Level 1.3 mg/dL (1.8-2.4) Review of Systems Constitutional: yes: weakness, alert, oriented Ears/Nose/Throat: Yes: no symptom reported Eyes: Yes: no symptom reported Pulmonary: Yes no symptom reported Cardiovascular: Yes no symptom reported Gastrointestional: Yes: nausea, vomiting, diarrhea Genitourinary: Yes: no symptom reported Musculoskeletal: Yes: muscle stiffness Skin: Yes no symptom reported Psychiatric/Neurological: Yes: no symptom reported Endocrine: Yes: no symptom reported Hematologic/Lymphatic: Yes: no symptom reported Physical Exam General Appearance: no apparent distress Skin: warm Respiratory: bilateral CTA Heart: S1S2 Abdomen: soft, bowel sounds present Genitourinary: bladder flat Extremities: pulses present Neurology: alert Assessment Assessment IMP ELIZABETH-ATN WITH CR DOWN TO 2.3 FROM 6.0 LOW MAG DEHYDRATION-RESOLVED ABD PAIN-RESOLVED GASTROENTERITIS HYPOTENSION-RESOLVED HX OF CM WITH EF OF 30% LAST IN 2012 NON OBSTRUCTING RENAL CALCULI PLAN REPLACE MAG ENC PO AVOID PEDRO-I AND DIURETICS FOR NOW UPDATED FAMILY OK TO D/C D/W ATTENDING WILL FOLLOW ZOHRA SORIANO MD Jun 16, 2019 10:33
--- NOTE | 2019-06-16 10:39 | PDOC ---
[facility] PROGRESS NOTE Chief Complaint Chief Complaint Intractable abdominal pain Nausea, vomiting, diarrhea ELIZABETH CAD s/p CABG Tachybrady s/p PPM COPD HTN Cardiomyopathy CHF EF 30% (2013) LBBB History of anemia History of Present Illness History of Present Illness 06/16/19 Patient seen and examined She is laying in bed Patient is doing well today She is having difficulties sleeping DW nurse SHIVAM with daughter 06/15/19 Patient seen and examined Patient laying in bed She states she is doing better Doesn't have any new complaints DW nurse SHIVAM with daughter Vitals/I&O Vitals/I&O: Vital Signs Date Time Temp Pulse Resp B/P (MAP) Pulse Ox O2 Delivery O2 Flow Rate FiO2 06/16/19 08:32 65 150/67 06/16/19 08:00 Room Air 06/16/19 07:00 97.7 18 97 97.7 I & O 06/15/19 06/15/19 06/16/19 15:00 23:00 07:00 Intake Total 480 ml 1240 ml 1200 ml Output Total 600 ml 1550 ml 3150 ml Balance -120 ml -310 ml -1950 ml Physical Exam General: Alert, Oriented X3, Cooperative, No acute distress, mild distress Heart: Regular rate Lungs: Clear Abdomen: Normal bowel sounds, Soft, No hepatosplenomegaly, No masses, Other (D iffuse pain, epigastric and RUQ) Extremities: No clubbing, No cyanosis, No edema, Normal pulses, No tender ness/swelling, Other Skin: No rashes, No breakdown, No significant lesion Labs Labs: Laboratory Tests Test 06/15/19 11:25 06/15/19 17:02 06/15/19 20:50 06/16/19 07:55 Glucose (Fingerstick) 218 mg/dL (70-99) 300 mg/dL (70-99) 233 mg/dL (70-99) 145 mg/dL (70-99) Test 06/16/19 08:39 White Blood Count 5.3 x10^3/uL (4.0-11.0) Red Blood Count 3.64 x10^6/uL (3.50-5.40) Hemoglobin 10.7 g/dL (12.0-15.5) Hematocrit 31.9 % (36.0-47.0) Mean Corpuscular Volume 88 fL (79-100) Mean Corpuscular Hemoglobin 29 pg (25-35) Mean Corpuscular Hemoglobin Concent 33 g/dL (31-37) Red Cell Distribution Width 13.5 % (11.5-14.5) Platelet Count 235 x10^3/uL (140-400) Neutrophils (%) (Auto) 59 % (31-73) Lymphocytes (%) (Auto) 22 % (24-48) Monocytes (%) (Auto) 12 % (0-9) Eosinophils (%) (Auto) 6 % (0-3) Basophils (%) (Auto) 1 % (0-3) Neutrophils # (Auto) 3.1 x10^3/uL (1.8-7.7) Lymphocytes # (Auto) 1.2 x10^3/uL (1.0-4.8) Monocytes # (Auto) 0.6 x10^3/uL (0.0-1.1) Eosinophils # (Auto) 0.3 x10^3/uL (0.0-0.7) Basophils # (Auto) 0.1 x10^3/uL (0.0-0.2) Sodium Level 147 mmol/L (136-145) Potassium Level 3.6 mmol/L (3.5-5.1) Chloride Level 112 mmol/L (98-107) Carbon Dioxide Level 22 mmol/L (21-32) Anion Gap 13 (6-14) Blood Urea Nitrogen 25 mg/dL (7-20) Creatinine 2.3 mg/dL (0.6-1.0) Estimated GFR (Cockcroft-Gault) 20.5 Glucose Level 157 mg/dL (70-99) Calcium Level 8.3 mg/dL (8.5-10.1) Phosphorus Level 2.9 mg/dL (2.6-4.7) Magnesium Level 1.3 mg/dL (1.8-2.4) Review of Systems Review of Systems: Denies N/V Denies SOB Assessment and Plan Assessmemt and Plan Problems Medical Problems: (1) Acute renal failure Status: Acute Assessment Intractable abdominal pain Nausea, vomiting, diarrhea - likely gastroenteritis, ELIZABETH - likely vasomotor nephropathy, will hydrate. If no improvement she notes she would NEVER go on dialysis. CAD s/p CABG Tachybrady s/p PPM Ex-smoker COPD HLD HTN Cardiomyopathy - ischemic per history CHF EF 30% (2012) LBBB History of anemia UTI Plan Trend labs, BUN and Cr improving Nephrology following IV fluids DVT prophylaxis DNR/DNI Home meds Potential discharge Comment Review of Relevant I have reviewed the following items juan (where applicable) has been applied. Medications: Current Medications Medications (Trade) Dose Ordered Sig/James Route PRN Reason Start Time Stop Time Status Last Admin Dose Admin Ceftriaxone Sodium (Rocephin) 1 gm Q24H IVP 06/15/19 13:00 06/15/19 12:42 Lactobacillus Rhamnosus (Culturelle) 1 cap BID PO 06/15/19 21:00 06/16/19 08:31 MARÍA HALL III DO Jun 16, 2019 10:39
[2019-06-16 11:00] VITALS: BP 178/74
[2019-06-16] MEDS: cefTRIAXone IV Push 1 GM VIAL. IVP SCH (13:19)
--- NOTE | 2019-06-16 15:55 | NUR ---
Discharge Note: NICOLLE FLORENTINO Discharge instructions and discharge home medications reviewed with Patient and a copy given. All questions have been answered and understanding verbalized. The following instructions and handouts were given: Kidney Failure Discontinued IV line Patient discharged to home with self care via wheelchair
== END 2019-06-16 15:57 | disposition home or self-care (01) | DRG 391 ==
LOC: ER 09:41 → 2 SOUTH 12:00
PROVIDERS: ADMIT Internal Medicine; ATTEND Internal Medicine
DX: K52.9 Noninfective gastroenteritis and colitis, unspecified (principal); N17.0 Acute kidney failure with tubular necrosis; N39.0 Urinary tract infection, site not specified; K80.20 Calculus of gallbladder without cholecystitis without obstruction; I25.10 Atherosclerotic heart disease of native coronary artery without angina pectoris; I49.5 Sick sinus syndrome; J44.9 Chronic obstructive pulmonary disease, unspecified; E78.5 Hyperlipidemia, unspecified; I11.0 Hypertensive heart disease with heart failure; E11.9 Type 2 diabetes mellitus without complications; M51.35 Other intervertebral disc degeneration, thoracolumbar region; N20.0 Calculus of kidney; I44.7 Left bundle-branch block, unspecified; Z66 Do not resuscitate; I25.5 Ischemic cardiomyopathy; E86.0 Dehydration; I50.9 Heart failure, unspecified; I70.8 Atherosclerosis of other arteries; Z88.8 Allergy status to other drugs, medicaments and biological substances; Z95.1 Presence of aortocoronary bypass graft; Z95.0 Presence of cardiac pacemaker; Z87.891 Personal history of nicotine dependence; Z83.3 Family history of diabetes mellitus; Z82.49 Family history of ischemic heart disease and other diseases of the circulatory system
CPT/HCPCS: 36415; 71045; 74176; 76705; 76770; 80048; 80053; 80069; 81001; 82550; 82803; 82962; 83605; 83690; 83735; 84100; 84484; 85025; 87086; 93005; 96361; 96374; J0696; J1644; J1815; J2405; J3475; J7030; 97112; 99285-25; G0378

== ENCOUNTER 2020-10-28 17:33 | Inpatient (IN) | payer MEDICARE ==
[~2020-10-28] VITALS: Ht 154.9 cm; Wt 150.6 kg
[~2020-10-28 17:33] MED LIST changes: +ATOR40TA59 PO; +SITA100T PO
--- NOTE | 2020-10-28 20:31 | PHYS DOC ---
Past Medical History Past Medical History: Arthritis, Diabetes-Type II, High Cholesterol, Hype rtension Past Surgical History: Coronary Bypass Surgery Smoking Status: Former Smoker Alcohol Use: None General Adult EDM: Chief Complaint: ABNORMAL LABS HPI: HPI: Patient is a 80 year old female who presents with was sent in by Dr. Guillermo today for a low hemoglobin. She does have a history of anemia and needing blood transfusions. She states the only symptom she is having is her legs feel weak when she is up and trying to walk. She states she is very upset with her physician because she thought that they were going to call up here so she can just get a blood transfusion and outpatient. She denies pain, shortness of breath, dizziness, headache, numbness or tingling, chest pain, abdominal pain, nausea, vomiting, diarrhea, blood in her stool or urine. She states that no one has ever told her why she has anemia over the last 10 years. She does have a history of diabetes, hypertension, high cholesterol and arthritis. Review of Systems: Review of Systems: Constitutional: Denies fever or chills. [] Eyes: Denies change in visual acuity. [] HENT: Denies nasal congestion or sore throat. [] Respiratory: Denies cough or shortness of breath. [] Cardiovascular: Denies chest pain or edema. [] GI: Denies abdominal pain, nausea, vomiting, bloody stools or diarrhea. [] : Denies dysuria. [] Musculoskeletal: Denies back pain or joint pain. + Generalized weakness [] Integument: Denies rash. [] Neurologic: Denies headache, focal weakness or sensory changes. [] Endocrine: Denies polyuria or polydipsia. [] Lymphatic: Denies swollen glands. [] Psychiatric: Denies depression or anxiety. [] Heart Score: C/O Chest Pain: No Risk Factors: Risk Factors: DM, Current or recent (<one month) smoker, HTN, HLP, family history of CAD, obesity. Risk Scores: Score 0 - 3: 2.5% MACE over next 6 weeks - Discharge Home Score 4 - 6: 20.3% MACE over next 6 weeks - Admit for Clinical Observation Score 7 - 10: 72.7% MACE over next 6 weeks - Early Invasive Strategies Allergies: Allergies: Allergies Coded Allergies Type Severity Reaction Last Updated Verified iodine Allergy Severe blisters leaving scars 10/10/17 Yes Physical Exam: PE: Constitutional: Well developed, well nourished, no acute distress, non-toxic appearance. [] HENT: Normocephalic, atraumatic, bilateral external ears normal, oropharynx moist, no oral exudates, nose normal. [] Eyes: PERRLA, EOMI, conjunctiva normal, no discharge. [] Neck: Normal range of motion, no tenderness, supple, no stridor. [] Cardiovascular:Heart rate regular rhythm, no murmur [] Lungs & Thorax: Bilateral breath sounds clear to auscultation [] Abdomen: Bowel sounds normal, soft, no tenderness, no masses, no pulsatile masses. [] Skin: Warm, dry, no erythema, no rash. Pale [] Back: No tenderness, no CVA tenderness. [] Extremities: No tenderness, no cyanosis, no clubbing, ROM intact, no edema. [] Neurologic: Alert and oriented X 3, normal motor function, normal sensory function, no focal deficits noted. [] Psychologic: Affect normal, judgement normal, mood normal. [] EKG: EK and read by Dr. Monaco as sinus rhythm with T wave abnormality and 1, 2, aVL, V5 and V6, no STEMI Radiology/Procedures: Radiology/Procedures: [] Course & Med Decision Making: Course & Med Decision Making Pertinent Labs and Imaging studies reviewed. (See chart for details) See HPI. Alert and oriented x4. Ambulatory with a steady gait. Skin is pale warm and dry. Speaks in full clear sentences. No extremity edema. Lungs are clear to auscultation all lobes. Hemoglobin is 5.2. Patient's kidney function is elevated. Admitted for blood transfusion by Dr. Baugh. [] Dragon Disclaimer: Dragdanilo Disclaimer: This electronic medical record was generated, in whole or in part, using a voice recognition dictation system. Departure Departure Impression: Primary Impression: Anemia Qualified Codes: D50.9 - Iron deficiency anemia, unspecified Disposition: ADMITTED INPATIENT Admitting Physician: MAN Condition: STABLE Referrals: JOSE GUILLERMO MD (PCP) ANTONELLA ANN APRN Oct 28, 2020 20:31
--- NOTE | 2020-10-28 20:41 | EKG ---
[facility] [address] [place] [address] Test Date: 2020-10-28 Test Time: 20:38:34 Pat Name: NICOLLE FLORENTINO Department: Room: Gender: F D[employer] Conveyor: : 1940 Requested By: ANTONELLA ANN Order Number: [id number] Reading MD: Measurements Intervals [place] Rate: 91 P: 32 AK: 116 QRS: -16 QRSD: 174 T: 166 QT: 406 QTc: 501 Interpretive Statements SINUS RHYTHM CONSIDER WPW, TYPE B LEFTWARD AXIS ST ABNORMALITY, POSSIBLE LATERAL SUBENDOCARDIAL INJURY ABNORMAL ECG RI6.01 No previous ECG available for comparison
[2020-10-28 20:42] LABS: BASO # 0.1 x10^3/uL (0.0-0.2); BASO % 1 % (0-3); EOS # 0.2 x10^3/uL (0.0-0.7); EOS % 3 % (0-3); LYMPH % 16 % (24-48); MEAN CORPUSCULAR HEMOGLOBIN 26 pg (25-35); MEAN CORPUSCULAR HGB CONC 30 g/dL (31-37); MEAN CORPUSCULAR VOLUME 85 fL (79-100); MONO # 0.7 x10^3/uL (0.0-1.1); MONO % 11 % (0-9); NEUT # 4.1 x10^3/uL (1.8-7.7); NEUT % 68 % (31-73); PLATELET COUNT 348 x10^3/uL (140-400); RED BLOOD COUNT 2.05 x10^6/uL (3.50-5.40); RED CELL DISTRIBUTION WIDTH 23.8 % (11.5-14.5)
[2020-10-28 20:44] LABS: HEMOGLOBIN 5.2 g/dL (12.0-15.5)
[2020-10-28 20:45] LABS: HEMATOCRIT 17.3 % (36.0-47.0)
[2020-10-28 20:49] LABS: PROTHROMBIN TIME PATIENT 14.5 SEC (11.7-14.0)
[2020-10-28] MEDS ORDERED: IV NORMAL SALINE 500ML BAG 500 ML IV ONE (21:00)
[2020-10-28 21:16] LABS: CALCIUM 9.5 mg/dL (8.5-10.1); CREATININE 1.6 mg/dL (0.6-1.0); POTASSIUM 4.7 mmol/L (3.5-5.1)
[2020-10-28 21:19] LABS: ALBUMIN 3.5 g/dL (3.4-5.0); ALBUMIN/GLOBULIN RATIO 0.9 (1.0-1.7); TOTAL BILIRUBIN 0.2 mg/dL (0.2-1.0); TOTAL PROTEIN 7.2 g/dL (6.4-8.2)
[2020-10-28 21:22] LABS: HYPOCHROMIA MOD; PLT ESTIMATE ADEQUATE (ADEQUATE)
[2020-10-28 21:24] LABS: ANISOCYTOSIS MOD
[2020-10-28 22:08] VITALS: BP 128/56
[2020-10-28 22:32] LABS: BILIRUBIN,URINE NEGATIVE (NEG); CLARITY,URINE CLEAR; COLOR,URINE YELLOW; NITRITE,URINE NEGATIVE (NEG); PH,URINE 5.5 (<5.0-8.0); PROTEIN,URINE NEGATIVE (NEG-TRACE); UROBILINOGEN,URINE 0.2 mg/dL (0.2 mg/dL)
[2020-10-28 22:39] LABS: BACTERIA,URINE 0 /HPF (0-FEW); RBC,URINE 0 /HPF (0-2); WBC,URINE OCC /HPF (0-4)
[2020-10-28 23:42] VITALS: BP 118/51
[2020-10-29] VITALS (29 sets, daily range): BP systolic 75–162; BP diastolic 33–78
[2020-10-29] MEDS ORDERED: BISACODYL 10 MG SUPP.RECT. PR PRN (00:45)
[2020-10-29] MEDS ORDERED: ACETAMINOPHEN 325 MG TABLET. PO PRN (00:45)
[2020-10-29] MEDS ORDERED: DEXTROSE 50% 25 GM / 50ML DISP.SYRIN. IV PRN ×2 (00:45→10:00)
[2020-10-29] MEDS ORDERED: MORPHINE SULFATE 2 MG/ML VIAL. IV PRN (00:45)
[2020-10-29] MEDS ORDERED: IV DEXTROSE 5% 250 ML BAG. IV PRN (00:45)
[2020-10-29] MEDS ORDERED: HYDROcodone/APAP 5/325MG 1 TAB TABLET PO PRN (00:45)
[2020-10-29] MEDS ORDERED: MAG HYDROX/ALUMINUM HYD/SIMETH 30 ML ORAL.SUSP PO PRN (00:45)
[2020-10-29] MEDS ORDERED: CALCIUM CARBONATE 500 MG TAB.CHEW PO PRN (00:45)
[2020-10-29] MEDS ORDERED: ONDANSETRON PF 4 MG/2 ML VIAL. IVP PRN (00:45)
[2020-10-29] MEDS: traMADol 50 MG TABLET PO PRN (00:55)
[2020-10-29] MEDS ORDERED: FUROSEMIDE 40 MG/4 ML VIAL. IVP ONE (01:15)
[2020-10-29 01:45] LABS: BASO # 0.1 x10^3/uL (0.0-0.2); BASO % 1 % (0-3); EOS # 0.4 x10^3/uL (0.0-0.7); EOS % 3 % (0-3); HEMATOCRIT 28.6 % (36.0-47.0); HEMOGLOBIN 8.3 g/dL (12.0-15.5); LYMPH # 4.7 x10^3/uL (1.0-4.8); LYMPH % 35 % (24-48); MEAN CORPUSCULAR HEMOGLOBIN 26 pg (25-35); MEAN CORPUSCULAR HGB CONC 29 g/dL (31-37); MEAN CORPUSCULAR VOLUME 90 fL (79-100); MONO # 1.6 x10^3/uL (0.0-1.1); MONO % 12 % (0-9); NEUT # 6.6 x10^3/uL (1.8-7.7); NEUT % 49 % (31-73); PLATELET COUNT 408 x10^3/uL (140-400); RED BLOOD COUNT 3.19 x10^6/uL (3.50-5.40); RED CELL DISTRIBUTION WIDTH 22.1 % (11.5-14.5); WHITE BLOOD COUNT 13.5 x10^3/uL (4.0-11.0)
[2020-10-29] MEDS ORDERED: diphenhydrAMINE 50 MG/ML VIAL IVP ONE (02:00)
--- NOTE | 2020-10-29 02:20 | NUR ---
Rapid Response Note: Rapid Response called by patient's RN for altered mental status and Respiratory distress. RN states patient complained of shortness of breath after 1st unit PRBC transfused--Dr Baugh was paged and ordered Lasix 40MG IVP x1. RN stated patient was initially A/O then after Lasix was administered patient respiratory status decompensated and Rapid Response was called, patient then became unresponsive. Upon arrival, patient was breathing on her own but respiration shallow and lung sounds with minimal air movement; difficult to obtain O2 saturation with questionable results of 35%. Respirations then became agonal and respirations assisted with Bag/valve/mask at 15L, patient did not lose pulse. When O2 saturation increased to 100%, respirations became normal and patient was arousable and followed commands--patient placed on Non-rebreather at 15L. Lung sounds with better air movement with scattered rhonchi and crackles, Heart tones distant S1S2, tele monitor SR with BBB. Oxygen saturation again dropped to <70%, so patient placed on BiPap with settings of IPap 20, EPap 6, rate 20 and 100% FiO2. Oxygen saturations increased to 100%, patient became alert and appropriate. Dr Baugh paged, returned page and notified of above event and discussed possible Blood transfusion reaction. Orders received to transfer patient to ICU, hold 2nd unit of PRBCs for now, may give additional dose of Lasix 40MG IVP if poor urine response or no improvement of lung sounds. continue BiPap with same settings, consult Dr Nieves in am, give Benadryl 25MG IVP now, and get Portable CXR--see orders. RN and patient notified of above orders, patient verbalized understanding and RN notified patient's family. Patient transferred to room 112 via bed with BiPap, accompanied by RN, Nursing Home Help Aide and RTx2. Addendum: 10/29/20 at 0425 by YULIA WANG RN Amended: Links added.
--- NOTE | 2020-10-29 03:00 | NUR ---
Patient began complaining of SOB after 1st unit of blood was administered, Upon assessment patient sounded wet. RN notified Dr. Baugh of findings, ordered 40 of IV lasix 1X, all vitals stable except for O2 saturation which was noted to be 88 on room air, 2L NC applied with no change o2 increased to 3 then 4 with no relief. When RN returned with lasix it was noted that patient was becoming increasingly lethargic and O2 sat was in the 70's which was continuing to drop, RN administered IV lasix and called a rapid response d/t decline in mentation and decreasing O2 sats and agonal breathing.
[2020-10-29 03:24] LABS: HEMATOCRIT 21.1 % (36.0-47.0); RED BLOOD COUNT 2.53 x10^6/uL (3.50-5.40); RED CELL DISTRIBUTION WIDTH 20.7 % (11.5-14.5); WHITE BLOOD COUNT 10.7 x10^3/uL (4.0-11.0)
[2020-10-29 03:32] LABS: HEMOGLOBIN 6.6 g/dL (12.0-15.5)
--- NOTE | 2020-10-29 03:58 | RAD ---
XR CHEST 1V History: Reason: Respiratory failure / Spl. Instructions: / History: Comparison: September 24, 2020 Findings: Decreased patchy left basilar opacity. Patchy right basilar opacity increased right upper lung patchy opacity. No pleural effusion. No pneumothorax. Prior median sternotomy. Unchanged heart size. Stable left-sided pacemaker. Impression: 1. Multifocal right lung opacities increased within the upper lung. 2. Decreased left basilar patchy opacities. Electronically signed by: Teofilo Pruitt DO (10/29/2020 3:56 AM) [facility]
[2020-10-29] MEDS ORDERED: IRON SUCROSE COMPLEX 500 MG in IV NORMAL SALINE 250ML 250 ML IV ONE (04:30)
[2020-10-29 05:52] LABS: BASE EXCESS ABG -5 mmol/L (-3-3); HCO3 ABG 21 mmol/L (21-28); PCO2 ABG 44 mmHg (35-46); PO2 ABG 82 mmHg (65-108); SAT O2 ABG 94 % (92-99)
[2020-10-29 05:53] LABS: FIO2 ABG 65
[2020-10-29] MEDS: INSULIN LISPRO 300 UNITS/3 ML VIAL. SQ SCH ×5 (08:24→16:57)
[2020-10-29] MEDS: ASPIRIN ENTERIC COATED 81 MG TABLET.DR. PO SCH (08:39)
[2020-10-29] MEDS: CARVEDILOL 3.125 MG TABLET. PO SCH ×2 (08:40→16:54)
[2020-10-29] MEDS ORDERED: NON FORMULARY ITEM (Glipizide 10 MG) PO SCH (09:00)
--- NOTE | 2020-10-29 10:09 | PDOC ---
GENERAL General: History and physical [id number] VITAL SIGNS Vital Signs/I&O: Vital Signs Date Time Temp Pulse Resp B/P (MAP) Pulse Ox O2 Delivery O2 Flow Rate FiO2 10/29/20 08:40 74 130/56 10/29/20 07:57 97 Nasal Cannula 3.0 10/29/20 06:00 14 10/29/20 02:30 97.6 97.6 I & O 10/28/20 10/28/20 10/29/20 15:00 23:00 07:00 Intake Total 314 ml Output Total 540 ml Balance 314 ml -540 ml ALLERGIES Allergies: Allergies Coded Allergies Type Severity Reaction Last Updated Verified iodine Allergy Severe blisters leaving scars 10/10/17 Yes MEDS Medications: Current Medications Medications (Trade) Dose Ordered Sig/James Route PRN Reason Start Time Stop Time Status Last Admin Dose Admin Aspirin (Ecotrin) 81 mg DAILY08 PO 10/29/20 08:00 10/29/20 08:39 Carvedilol (Coreg) 6.25 mg BIDWMEALS PO 10/29/20 08:00 10/29/20 08:40 Tramadol HCl (Ultram) 50 mg PRN TID PRN PO PAIN MILD TO MODERATE 10/29/20 00:45 10/29/20 00:55 Insulin Human Lispro (HumaLOG) 3 units TIDWMEALS SQ 10/29/20 08:00 10/29/20 08:24 Furosemide (Lasix) 40 mg 1X ONCE IVP 10/29/20 01:15 10/29/20 01:19 DC 10/29/20 01:20 Diphenhydramine HCl (Benadryl) 25 mg 1X ONCE IVP 10/29/20 02:00 10/29/20 02:02 DC 10/29/20 02:37 Iron Sucrose 500 mg/Sodium Chloride 275 ml @ 78.571 mls/ hr 1X ONCE IV 10/29/20 04:30 10/29/20 07:59 DC 10/29/20 03:54 LAB Lab: Laboratory Tests Test 10/28/20 20:25 10/28/20 22:00 10/29/20 01:27 10/29/20 01:35 White Blood Count 6.0 x10^3/uL (4.0-11.0) 13.5 x10^3/uL (4.0-11.0) H Red Blood Count 2.05 x10^6/uL (3.50-5.40) L 3.19 x10^6/uL (3.50-5.40) L Hemoglobin 5.2 g/dL (12.0-15.5) *L 8.3 g/dL (12.0-15.5) #L Hematocrit 17.3 % (36.0-47.0) *L 28.6 % (36.0-47.0) L Mean Corpuscular Volume 85 fL (79-100) 90 fL (79-100) # Mean Corpuscular Hemoglobin 26 pg (25-35) 26 pg (25-35) Mean Corpuscular Hemoglobin Concent 30 g/dL (31-37) L 29 g/dL (31-37) L Red Cell Distribution Width 23.8 % (11.5-14.5) H 22.1 % (11.5-14.5) H Platelet Count 348 x10^3/uL (140-400) 408 x10^3/uL (140-400) H Neutrophils (%) (Auto) 68 % (31-73) 49 % (31-73) Lymphocytes (%) (Auto) 16 % (24-48) L 35 % (24-48) Monocytes (%) (Auto) 11 % (0-9) H 12 % (0-9) H Eosinophils (%) (Auto) 3 % (0-3) 3 % (0-3) Basophils (%) (Auto) 1 % (0-3) 1 % (0-3) Neutrophils # (Auto) 4.1 x10^3/uL (1.8-7.7) 6.6 x10^3/uL (1.8-7.7) Lymphocytes # (Auto) 1.0 x10^3/uL (1.0-4.8) 4.7 x10^3/uL (1.0-4.8) Monocytes # (Auto) 0.7 x10^3/uL (0.0-1.1) 1.6 x10^3/uL (0.0-1.1) H Eosinophils # (Auto) 0.2 x10^3/uL (0.0-0.7) 0.4 x10^3/uL (0.0-0.7) Basophils # (Auto) 0.1 x10^3/uL (0.0-0.2) 0.1 x10^3/uL (0.0-0.2) Platelet Estimate Adequate (ADEQUATE) Hypochromasia Mod Anisocytosis Mod Prothrombin Time 14.5 SEC (11.7-14.0) H Prothrombin Time INR 1.1 (0.8-1.1) Sodium Level 142 mmol/L (136-145) Potassium Level 4.7 mmol/L (3.5-5.1) Chloride Level 108 mmol/L (98-107) H Carbon Dioxide Level 22 mmol/L (21-32) Anion Gap 12 (6-14) Blood Urea Nitrogen 44 mg/dL (7-20) H Creatinine 1.6 mg/dL (0.6-1.0) H Estimated GFR (Cockcroft-Gault) 31.0 BUN/Creatinine Ratio 28 (6-20) H Glucose Level 133 mg/dL (70-99) H Calcium Level 9.5 mg/dL (8.5-10.1) Total Bilirubin 0.2 mg/dL (0.2-1.0) Aspartate Amino Transferase (AST) 26 U/L (15-37) Alanine Aminotransferase (ALT) 21 U/L (14-59) Alkaline Phosphatase 33 U/L (46-116) L Troponin I Quantitative < 0.017 ng/mL (0.000-0.055) < 0.017 ng/mL (0.000-0.055) JS-Liu-L-Type Natriuretic Peptide 932 pg/mL (0-449) H Total Protein 7.2 g/dL (6.4-8.2) Albumin 3.5 g/dL (3.4-5.0) Albumin/Globulin Ratio 0.9 (1.0-1.7) L Urine Collection Type Unknown Urine Color Yellow Urine Clarity Clear Urine pH 5.5 (<5.0-8.0) Urine Specific [place] 1.015 (1.000-1.030) Urine Protein Negative mg/dL (NEG-TRACE) Urine Glucose (UA) Negative mg/dL (NEG) Urine Ketones (Stick) Negative mg/dL (NEG) Urine Blood Negative (NEG) Urine Nitrite Negative (NEG) Urine Bilirubin Negative (NEG) Urine Urobilinogen Dipstick 0.2 mg/dL (0.2 mg/dL) Urine Leukocyte Esterase Negative (NEG) Urine RBC 0 /HPF (0-2) Urine WBC Occ /HPF (0-4) Urine Squamous Epithelial Cells Occ /LPF Urine Bacteria 0 /HPF (0-FEW) Glucose (Fingerstick) 318 mg/dL (70-99) H Test 10/29/20 02:00 10/29/20 03:10 10/29/20 08:17 O2 Saturation 94 % (92-99) Arterial Blood pH 7.29 (7.35-7.45) L Arterial Blood pCO2 at Patient Temp 44 mmHg (35-46) Arterial Blood pO2 at Patient Temp 82 mmHg (65-108) Arterial Blood pO2 (Temp corrected) mmHg Arterial Blood HCO3 21 mmol/L (21-28) Arterial Blood Base Excess -5 mmol/L (-3-3) L FiO2 65 White Blood Count 10.7 x10^3/uL (4.0-11.0) Red Blood Count 2.53 x10^6/uL (3.50-5.40) L Hemoglobin 6.6 g/dL (12.0-15.5) *L Hematocrit 21.1 % (36.0-47.0) L Mean Corpuscular Volume 83 fL (79-100) # Mean Corpuscular Hemoglobin 26 pg (25-35) Mean Corpuscular Hemoglobin Concent 31 g/dL (31-37) Red Cell Distribution Width 20.7 % (11.5-14.5) H Platelet Count 310 x10^3/uL (140-400) Total Bilirubin 0.7 mg/dL (0.2-1.0) DU-Tkc-[id number]-Type Natriuretic Peptide 1354 pg/mL (0-449) H Glucose (Fingerstick) 143 mg/dL (70-99) H Laboratory Tests 10/28/20 20:25 10/29/20 01:35 10/29/20 03:10 Laboratory Tests 10/28/20 20:25 Justifications for Admission Other Justification Profound anemia TRISTIN FRAUSTO MD Oct 29, 2020 10:09
--- NOTE | 2020-10-29 10:55 | HP ---
ADMIT DATE: 10/29/2020 HISTORY OF PRESENT ILLNESS: This patient is an 80-year-old woman who is a continuity outpatient of Dr. Jose Guillermo who uses the [facility] hospitalist here at [facility]. I am rounding for them this weekend. The patient was admitted to [facility] service with the same complaint of severe anemia in early September. Admission hemoglobin at that point was 5.4 and she was discharged home several days after admission with a hemoglobin of 8.1, with recommendations for close outpatient followup. The patient is a relatively poor historian. Daughter, Shahrzad, who lives out in [place] and is her medical durable power of grinding machine operator portable, is at bedside this morning. She can best be found at [phone]. They both tell me that the patient has had at least 4 packed red blood cell transfusions total in her lifetime and that this diagnosis of severe anemia is relatively new. She has not yet seen Hematology. On that last admission, her fecal occult blood was negative and the patient denies any active obvious bleeding. GI was not consulted during that admission. The patient was sent into the emergency department last night by her doctor with severe anemia, admission hemoglobin of 5.2. Again this morning, the patient denies any active bleeding, no nausea or vomiting, no change in her bowel habits. Her stool appears normal. Her only complaint is that she is feeling wiped out and weak. She tells me that she does not like to be in the hospital and does not want to have any intervention, just wants to feel better. Her main goal was getting home as quickly as possible. She is agreeable to speaking with Hematology to figure out what is causing this severe anemia. The patient denies any chest pain, palpitations. Last night during her transfusion, she developed acute respiratory distress and was transferred to the intensive care unit. She is currently comfortable on 4 liters of oxygen. She does remember the same situation happening during that last admission, although there is not much documentation regarding any persistent respiratory symptoms following blood transfusion last admission. All other systems reviewed and negative. PAST MEDICAL HISTORY: 1. The patient had a multivessel coronary artery bypass graft in the past. She follows with Dr. Flores, but has not seen him in a couple of years. She tells me that from her cardiac and everything has been well for her. 2. Diabetes mellitus, per the patient has been historically well controlled. 3. Hyperlipidemia. 4. Hypertension. 5. Relatively recent history of severe anemia. MEDICATIONS: Please see the medication reconciliation form. SOCIAL HISTORY: The patient is single. She lives independently in her own home. Daughter reports that she functions very well and has no concerns about her mentation. She denies any tobacco, alcohol or illicit drugs. FAMILY HISTORY: Reviewed in full and unremarkable for the present illness. The patient is adamant that she does not want cardiopulmonary resuscitation in the event of an arrest. She does not have DNR/DNI paperwork, but daughter is in agreement that this is her mother's wishes and she has stated that on several occasions. PHYSICAL EXAMINATION: VITAL SIGNS: Reviewed since admission and are notable for that the patient has been afebrile. Blood pressure has been in the 80s-90s/50s, heart rate is in the 60s and regular. She is breathing comfortably and saturating 97-100% on 4 liters. GENERAL: The patient is a pleasant 80-year-old woman who is appropriately interactive. She is fatigued during the assessment and her ability to speak about her medical issues is somewhat limited. She has deep pallor noted. HEENT: Unremarkable. NECK: Soft and supple. No adenopathy or thyromegaly noted. CHEST: Clear to auscultation. HEART: S1, S2 normal. Regular rate and rhythm. No murmurs or gallops are noted. ABDOMEN: Soft, nontender, nondistended. No masses or organomegaly noted. EXTREMITIES: Unremarkable for acute abnormality. SKIN: No rashes or bruising are noted. LABORATORY DATA AND OTHER STUDIES: Admission white count is 10.7, hemoglobin is 5.2, platelet count is 343. Chemistry panel is notable for a creatinine of 1.6. We will need to review her level on that last admission. Sodium 142, potassium 4.7. Liver function test is normal. BNP is up at 1354. Fingerstick glucose is 143 this morning. INR is 1.1, PT is 14.5. Urinalysis is clear. Chest x-ray is notable for multifocal right lung opacities, increased within the upper lung and decreased left basilar patchy opacities. EKG in the emergency department is reportedly unremarkable. I am unable to pull that report up. ASSESSMENT AND PLAN/IMPRESSION: An 80-year-old woman with at least 2 months of severe anemia of unclear etiology, admitted again with severe anemia, hemoglobin of 5.2. She does not appear to have any obvious bleeding. We will recheck her fecal occult stool, but her clinical presentation is more compatible with autoimmune anemia or other process. We will consult Hematology for their assistance. We have also asked Pulmonary to weigh in given her acute respiratory distress last evening. She obviously needs another unit of packed red blood cells, but unfortunately with this reaction, we will need to proceed very cautiously and probably will need prescreened and treated blood. Hematology will be best able to help us find that match. Subspecialty assistance is appreciated. We will hold off on cardiology consult at this point, although depending on her progress, we may need them involved as well. Inpatient status is most appropriate as we anticipate a length of stay of at least 3-4 midnights while we work this through. We have discussed code status and the patient has made it extremely clear that she is a do not resuscitate, do not intubate status. ZENAIDA DR: Gal TID: [id number] CC: JOSE GUILLERMO MD MTDD
--- NOTE | 2020-10-29 12:03 | PDOC ---
PULMONARY PROGRESS NOTES DATE: 10/29/20 TIME: 12:03 Vitals Vital Signs Date Time Temp Pulse Resp B/P (MAP) Pulse Ox O2 Delivery O2 Flow Rate FiO2 10/29/20 11:00 67 15 109/48 (68) 99 Nasal Cannula 4.0 10/29/20 08:00 98.3 98.3 Lungs: Clear Labs Laboratory Tests Test 10/28/20 20:25 10/28/20 22:00 10/29/20 01:27 10/29/20 01:35 White Blood Count 6.0 x10^3/uL (4.0-11.0) 13.5 x10^3/uL (4.0-11.0) Red Blood Count 2.05 x10^6/uL (3.50-5.40) 3.19 x10^6/uL (3.50-5.40) Hemoglobin 5.2 g/dL (12.0-15.5) 8.3 g/dL (12.0-15.5) Hematocrit 17.3 % (36.0-47.0) 28.6 % (36.0-47.0) Mean Corpuscular Volume 85 fL (79-100) 90 fL (79-100) Mean Corpuscular Hemoglobin 26 pg (25-35) 26 pg (25-35) Mean Corpuscular Hemoglobin Concent 30 g/dL (31-37) 29 g/dL (31-37) Red Cell Distribution Width 23.8 % (11.5-14.5) 22.1 % (11.5-14.5) Platelet Count 348 x10^3/uL (140-400) 408 x10^3/uL (140-400) Neutrophils (%) (Auto) 68 % (31-73) 49 % (31-73) Lymphocytes (%) (Auto) 16 % (24-48) 35 % (24-48) Monocytes (%) (Auto) 11 % (0-9) 12 % (0-9) Eosinophils (%) (Auto) 3 % (0-3) 3 % (0-3) Basophils (%) (Auto) 1 % (0-3) 1 % (0-3) Neutrophils # (Auto) 4.1 x10^3/uL (1.8-7.7) 6.6 x10^3/uL (1.8-7.7) Lymphocytes # (Auto) 1.0 x10^3/uL (1.0-4.8) 4.7 x10^3/uL (1.0-4.8) Monocytes # (Auto) 0.7 x10^3/uL (0.0-1.1) 1.6 x10^3/uL (0.0-1.1) Eosinophils # (Auto) 0.2 x10^3/uL (0.0-0.7) 0.4 x10^3/uL (0.0-0.7) Basophils # (Auto) 0.1 x10^3/uL (0.0-0.2) 0.1 x10^3/uL (0.0-0.2) Platelet Estimate Adequate (ADEQUATE) Hypochromasia Mod Anisocytosis Mod Prothrombin Time 14.5 SEC (11.7-14.0) Prothromb Time International Ratio 1.1 (0.8-1.1) Sodium Level 142 mmol/L (136-145) Potassium Level 4.7 mmol/L (3.5-5.1) Chloride Level 108 mmol/L (98-107) Carbon Dioxide Level 22 mmol/L (21-32) Anion Gap 12 (6-14) Blood Urea Nitrogen 44 mg/dL (7-20) Creatinine 1.6 mg/dL (0.6-1.0) Estimated GFR (Cockcroft-Gault) 31.0 BUN/Creatinine Ratio 28 (6-20) Glucose Level 133 mg/dL (70-99) Calcium Level 9.5 mg/dL (8.5-10.1) Total Bilirubin 0.2 mg/dL (0.2-1.0) Aspartate Amino Transf (AST/SGOT) 26 U/L (15-37) Alanine Aminotransferase (ALT/SGPT) 21 U/L (14-59) Alkaline Phosphatase 33 U/L (46-116) Troponin I Quantitative < 0.017 ng/mL (0.000-0.055) < 0.017 ng/mL (0.000-0.055) YV-Mkp-C-Type Natriuretic Peptide 932 pg/mL (0-449) Total Protein 7.2 g/dL (6.4-8.2) Albumin 3.5 g/dL (3.4-5.0) Albumin/Globulin Ratio 0.9 (1.0-1.7) Urine Collection Type Unknown Urine Color Yellow Urine Clarity Clear Urine pH 5.5 (<5.0-8.0) Urine Specific [place] 1.015 (1.000-1.030) Urine Protein Negative mg/dL (NEG-TRACE) Urine Glucose (UA) Negative mg/dL (NEG) Urine Ketones (Stick) Negative mg/dL (NEG) Urine Blood Negative (NEG) Urine Nitrite Negative (NEG) Urine Bilirubin Negative (NEG) Urine Urobilinogen Dipstick 0.2 mg/dL (0.2 mg/dL) Urine Leukocyte Esterase Negative (NEG) Urine RBC 0 /HPF (0-2) Urine WBC Occ /HPF (0-4) Urine Squamous Epithelial Cells Occ /LPF Urine Bacteria 0 /HPF (0-FEW) Glucose (Fingerstick) 318 mg/dL (70-99) Test 10/29/20 02:00 10/29/20 03:10 10/29/20 08:17 10/29/20 11:35 O2 Saturation 94 % (92-99) Arterial Blood pH 7.29 (7.35-7.45) Arterial Blood pCO2 at Patient Temp 44 mmHg (35-46) Arterial Blood pO2 at Patient Temp 82 mmHg (65-108) Arterial Blood pO2 (Temp corrected) mmHg Arterial Blood HCO3 21 mmol/L (21-28) Arterial Blood Base Excess -5 mmol/L (-3-3) FiO2 65 White Blood Count 10.7 x10^3/uL (4.0-11.0) Red Blood Count 2.53 x10^6/uL (3.50-5.40) Hemoglobin 6.6 g/dL (12.0-15.5) 6.9 g/dL (12.0-15.5) Hematocrit 21.1 % (36.0-47.0) Mean Corpuscular Volume 83 fL (79-100) Mean Corpuscular Hemoglobin 26 pg (25-35) Mean Corpuscular Hemoglobin Concent 31 g/dL (31-37) Red Cell Distribution Width 20.7 % (11.5-14.5) Platelet Count 310 x10^3/uL (140-400) Total Bilirubin 0.7 mg/dL (0.2-1.0) YK-Ixj-F-Type Natriuretic Peptide 1354 pg/mL (0-449) Glucose (Fingerstick) 143 mg/dL (70-99) Laboratory Tests Test 10/28/20 20:25 10/28/20 22:00 10/29/20 01:27 10/29/20 01:35 White Blood Count 6.0 x10^3/uL (4.0-11.0) 13.5 x10^3/uL (4.0-11.0) Red Blood Count 2.05 x10^6/uL (3.50-5.40) 3.19 x10^6/uL (3.50-5.40) Hemoglobin 5.2 g/dL (12.0-15.5) 8.3 g/dL (12.0-15.5) Hematocrit 17.3 % (36.0-47.0) 28.6 % (36.0-47.0) Mean Corpuscular Volume 85 fL (79-100) 90 fL (79-100) Mean Corpuscular Hemoglobin 26 pg (25-35) 26 pg (25-35) Mean Corpuscular Hemoglobin Concent 30 g/dL (31-37) 29 g/dL (31-37) Red Cell Distribution Width 23.8 % (11.5-14.5) 22.1 % (11.5-14.5) Platelet Count 348 x10^3/uL (140-400) 408 x10^3/uL (140-400) Neutrophils (%) (Auto) 68 % (31-73) 49 % (31-73) Lymphocytes (%) (Auto) 16 % (24-48) 35 % (24-48) Monocytes (%) (Auto) 11 % (0-9) 12 % (0-9) Eosinophils (%) (Auto) 3 % (0-3) 3 % (0-3) Basophils (%) (Auto) 1 % (0-3) 1 % (0-3) Neutrophils # (Auto) 4.1 x10^3/uL (1.8-7.7) 6.6 x10^3/uL (1.8-7.7) Lymphocytes # (Auto) 1.0 x10^3/uL (1.0-4.8) 4.7 x10^3/uL (1.0-4.8) Monocytes # (Auto) 0.7 x10^3/uL (0.0-1.1) 1.6 x10^3/uL (0.0-1.1) Eosinophils # (Auto) 0.2 x10^3/uL (0.0-0.7) 0.4 x10^3/uL (0.0-0.7) Basophils # (Auto) 0.1 x10^3/uL (0.0-0.2) 0.1 x10^3/uL (0.0-0.2) Platelet Estimate Adequate (ADEQUATE) Hypochromasia Mod Anisocytosis Mod Prothrombin Time 14.5 SEC (11.7-14.0) Prothromb Time International Ratio 1.1 (0.8-1.1) Sodium Level 142 mmol/L (136-145) Potassium Level 4.7 mmol/L (3.5-5.1) Chloride Level 108 mmol/L (98-107) Carbon Dioxide Level 22 mmol/L (21-32) Anion Gap 12 (6-14) Blood Urea Nitrogen 44 mg/dL (7-20) Creatinine 1.6 mg/dL (0.6-1.0) Estimated GFR (Cockcroft-Gault) 31.0 BUN/Creatinine Ratio 28 (6-20) Glucose Level 133 mg/dL (70-99) Calcium Level 9.5 mg/dL (8.5-10.1) Total Bilirubin 0.2 mg/dL (0.2-1.0) Aspartate Amino Transf (AST/SGOT) 26 U/L (15-37) Alanine Aminotransferase (ALT/SGPT) 21 U/L (14-59) Alkaline Phosphatase 33 U/L (46-116) Troponin I Quantitative < 0.017 ng/mL (0.000-0.055) < 0.017 ng/mL (0.000-0.055) CY-Dey-D-Type Natriuretic Peptide 932 pg/mL (0-449) Total Protein 7.2 g/dL (6.4-8.2) Albumin 3.5 g/dL (3.4-5.0) Albumin/Globulin Ratio 0.9 (1.0-1.7) Urine Collection Type Unknown Urine Color Yellow Urine Clarity Clear Urine pH 5.5 (<5.0-8.0) Urine Specific [place] 1.015 (1.000-1.030) Urine Protein Negative mg/dL (NEG-TRACE) Urine Glucose (UA) Negative mg/dL (NEG) Urine Ketones (Stick) Negative mg/dL (NEG) Urine Blood Negative (NEG) Urine Nitrite Negative (NEG) Urine Bilirubin Negative (NEG) Urine Urobilinogen Dipstick 0.2 mg/dL (0.2 mg/dL) Urine Leukocyte Esterase Negative (NEG) Urine RBC 0 /HPF (0-2) Urine WBC Occ /HPF (0-4) Urine Squamous Epithelial Cells Occ /LPF Urine Bacteria 0 /HPF (0-FEW) Glucose (Fingerstick) 318 mg/dL (70-99) Test 10/29/20 02:00 10/29/20 03:10 10/29/20 08:17 10/29/20 11:35 O2 Saturation 94 % (92-99) Arterial Blood pH 7.29 (7.35-7.45) Arterial Blood pCO2 at Patient Temp 44 mmHg (35-46) Arterial Blood pO2 at Patient Temp 82 mmHg (65-108) Arterial Blood pO2 (Temp corrected) mmHg Arterial Blood HCO3 21 mmol/L (21-28) Arterial Blood Base Excess -5 mmol/L (-3-3) FiO2 65 White Blood Count 10.7 x10^3/uL (4.0-11.0) Red Blood Count 2.53 x10^6/uL (3.50-5.40) Hemoglobin 6.6 g/dL (12.0-15.5) 6.9 g/dL (12.0-15.5) Hematocrit 21.1 % (36.0-47.0) Mean Corpuscular Volume 83 fL (79-100) Mean Corpuscular Hemoglobin 26 pg (25-35) Mean Corpuscular Hemoglobin Concent 31 g/dL (31-37) Red Cell Distribution Width 20.7 % (11.5-14.5) Platelet Count 310 x10^3/uL (140-400) Total Bilirubin 0.7 mg/dL (0.2-1.0) HO-Pgw-L-Type Natriuretic Peptide 1354 pg/mL (0-449) Glucose (Fingerstick) 143 mg/dL (70-99) Medications Active Scripts Medications Dose Route/Sig Max Daily Dose Days Date Category Januvia (Sitagliptin Phosphate) 100 Mg Tablet 100 Mg PO DAILY 09/24/20 Reported Metformin Hcl 1,000 Mg Tablet 1,000 Mg PO BIDWMEALS 09/24/20 Reported Atorvastatin Calcium 40 Mg Tablet 1 Tab PO QHS 06/13/19 Reported Aspir 81 (Aspirin) 81 Mg Tablet.dr 81 Mg PO DAILY 09/03/13 Reported Fish Oil 1,000 Mg Capsule ([place]-3 Fatty Acids/Fish Oil) 1 Each Capsule 1 Each PO DAILY 09/03/13 Reported Tramadol Hcl 50 Mg Tablet 50 Mg PO PRN TID PRN 09/03/13 Reported Carvedilol (Carvedilol) 3.125 Mg Tablet 6.25 Mg PO BID 09/03/13 Reported Glipizide 10 Mg Tablet 10 Mg PO BID 09/03/13 Reported Impression . Full consult dictated Acute pulmonary edema secondary to transfusion Continue current support ETHAN VIRAMONTES MD Oct 29, 2020 12:03
--- NOTE | 2020-10-29 13:13 | NUR ---
O2 per NC on am assessment. Denies SO with lung mcguire clear anterior,diminished w crackles posterior LL areas. Denies cough. Dr Plummer in . Will hold on further transfusion till seen by hemonc DR. ROSALES stable w rare 100% func pacer observed. Olivares cath assisting w accurate I/O. Cont POC till otherwise ordered.
[2020-10-29] MEDS ORDERED: glipiZIDE 5 MG TABLET PO SCH (16:30)
--- NOTE | 2020-10-29 17:03 | RAD ---
Exam: CT of chest, abdomen and pelvis without contrast INDICATION: Severe anemia, evaluate cancer TECHNIQUE: Sequential axial images through the chest, abdomen and pelvis obtained without IV contrast . Sagittal and coronal reformatted images were reconstructed from the axial data and reviewed. Exposure: One or more of the following in the visualized dose reduction techniques were utilized for this examination: 1. Automated exposure control 2. Adjustment of the MA and/or KV according to patient size 3. Use of iterative of reconstructive technique Comparisons: 06/13/2019 FINDINGS: Visualized portions of the thyroid are unremarkable. No enlarged mediastinal lymph nodes are identifi ed. Heart is mildly enlarged. Pacer with leads terminating the right heart. No pericardial effusion. Thor acic aorta has a normal course and caliber. Pulmonary artery is not enlarged. Airways are patent. There is subtle groundglass opacity noted in the right lung. 6 mm nodule left low er lobe series 2 image 32. Small bilateral pleural effusions with adjacent atelectasis. Evaluation of solid organs is limited secondary to noncontrast technique. Liver, spleen, pancreas and adrenals are unremarkable. Gallstones are noted within the gallbladder wh ich is nondilated. No perinephric inflammation or hydronephrosis. Bilateral nonobstructing renal calculi are noted. Bladder is decompressed not well evaluated. Olivares balloon noted in the bladder. Uterus is nonenlarged . No abnormal adnexal mass. Diverticulosis noted at the sigmoid colon with mild associated wall thickening. Moderate amount of st ool is noted throughout the colon. Appendix is normal. Small bowel is unremarkable. No free abdominal air or fluid. No obstruction. Abdominal aorta has a normal course and caliber. No enlarged intra-abdominal lymph nodes are identified. No suspicious osseous lesions or acute fractures. IMPRESSION: 1. Findings likely related to pulmonary edema with small bilateral pleural effusions. 2. A 6 mm nodule in the left lower lobe. A six-month follow-up chest CT is recommended to reevaluate . 3. Mild wall thickening at the sigmoid colon, nonspecific may relate to mild focal colitis. Correlat e with symptomatology. 4. Cholelithiasis. 5. Moderate amount stool in the colon. Correlate for constipation. Electronically signed by: Carmelo Hamilton MD (10/29/2020 5:00 PM) [facility]
[2020-10-29] MEDS ORDERED: IV NORMAL SALINE 500ML BAG 500 ML IV ONE (18:30)
[2020-10-29] MEDS: ATORVASTATIN CALCIUM 40 MG TABLET. PO SCH (20:15)
[2020-10-29] MEDS: INSULIN GLARGINE SYRINGE. SQ SCH (20:19)
[2020-10-30] VITALS (23 sets, daily range): BP systolic 110–166; BP diastolic 42–72
--- NOTE | 2020-10-30 00:27 | CONS ---
DATE OF CONSULTATION: 10/29/2020 ATTENDING PHYSICIAN: Dr. Mike Plummer. REASON FOR CONSULTATION: The patient is seen in pulmonary consultation at the request of Dr. Plummer for acute hypoxemic respiratory failure. HISTORY OF PRESENT ILLNESS: The patient is an 80-year-old that presented from Dr. Gregg' office for low hemoglobin. Apparently, she has been having some difficulty with acute blood loss anemia. She has been transfused in the past. She had her hemoglobin checked sometime this week, it was low. She was sent to the emergency room for further evaluation and management. The patient was somewhat short of breath, no chest pain, no pressure. She does have a history of tobacco use, quit 9 years ago. No home oxygen. She came in with a hemoglobin of 5.2, was transfused to 8.3. She then became short of breath. Arterial blood gas revealed a pH of 7.29, PaCO2 of 44, pO2 of 82 and bicarbonate of 21. Chest x-ray was obtained revealing mainly a right-sided infiltrate. I have reviewed previous x-rays back in 09/24, she had almost similar type of presentation. At that time, she was transfused. Last evening, the patient was placed on BiPAP. She was given IV Lasix. She now feels better. She is on nasal cannula oxygen. Normally does not wear oxygen. Denies any fever, chills or night sweats. Prior to admission, she has been vaccinated for COVID-19. No recent acute exacerbations of COPD. She has not had a recent CAT scan of the chest. PAST MEDICAL HISTORY: Type 2 diabetes, arthritis, hyperlipidemia, hypertension, coronary artery disease status post coronary artery bypass grafting. She also has a history of cardiomyopathy. I reviewed previous medical records. She had an echocardiogram some time ago revealing, the EF back in 2012 was 30%. PAST SURGICAL HISTORY: No recent major surgeries. REVIEW OF SYSTEMS: CONSTITUTIONAL: No fever or chills. EYES: No change in visual acuity. HENT: No nasal congestion or sore throat. PULMONARY: As indicated above. CARDIOVASCULAR: No chest pain, no pressure. GASTROINTESTINAL: No nausea, vomiting, diarrhea. Denies any bloody stools. GENITOURINARY: No dysuria or frequency. MUSCULOSKELETAL: No localized joint pain or muscle aches. She has generalized weakness. SKIN: No new skin rashes. NEUROLOGIC: No headaches, diplopia or blurred vision. CURRENT MEDICATIONS: List was reviewed. PHYSICAL EXAMINATION: VITAL SIGNS: Stable. O2 saturation greater than 92%, currently on 3 liters. HEENT: Eyes: The sclerae were nonicteric. NECK: Jugular venous distention was not elevated. No lymphadenopathy. CHEST: Full expansion. LUNGS: Adequate flow with no wheezes. CARDIOVASCULAR: Regular rate and rhythm with S1, S2, no S3. ABDOMEN: Soft, nontender and nondistended. EXTREMITIES: No clubbing, cyanosis or edema: NEUROLOGIC: The patient was awake, alert, following commands. A detailed neuro exam was not performed. LABORATORY DATA: White count was normal, hemoglobin initially 5.2, repeat 8.3, repeat this morning 6.6. Glucose level was elevated. BUN and creatinine are elevated at 44 and 1.6. INR was normal. UA was noted. Chest x-ray as indicated above. IMPRESSION: 1. Acute hypoxemic respiratory failure secondary to acute pulmonary edema, doubt transfusion-related lung injury. 2. Cardiomyopathy, ejection fraction 35%. 3. Chronic obstructive pulmonary disease, unknown FEV1. 4. Tobacco dependence in remission. 5. Acute blood loss anemia. 6. Metabolic acidosis secondary to increased work of breathing. 7. Hyperlipidemia. 8. Hypertension. 9. Type 2 diabetes. PLAN: 1. We will continue support with oxygen supplementation. 2. We will defer further transfusions to Hematology or PCP. 3. Baseline CT chest. The patient is a former smoker. 4. P.r.n. nebulized treatments. 5. Outpatient pulmonary function testing. 6. Continue home medications. I do appreciate the privilege in sharing in this patient's care. REX DR: Cole TID: [id number]
[2020-10-30 05:02] LABS: CALCIUM 8.7 mg/dL (8.5-10.1); CREATININE 1.6 mg/dL (0.6-1.0); POTASSIUM 3.5 mmol/L (3.5-5.1)
[2020-10-30 05:52] LABS: RED BLOOD COUNT 2.49 x10^6/uL (3.50-5.40); RED CELL DISTRIBUTION WIDTH 21.4 % (11.5-14.5)
[2020-10-30 05:54] LABS: HEMOGLOBIN 6.5 g/dL (12.0-15.5)
[2020-10-30 05:55] LABS: HEMATOCRIT 20.7 % (36.0-47.0)
--- NOTE | 2020-10-30 07:55 | PDOC ---
PULMONARY PROGRESS NOTES DATE: 10/30/20 TIME: 07:54 Subjective Patient is resting comfortably on 3 L nasal cannula Denies any shortness of breath or cough Daughter at bedside Anemia on labs this morning No overnight concerns Vitals Vital Signs Date Time Temp Pulse Resp B/P (MAP) Pulse Ox O2 Delivery O2 Flow Rate FiO2 10/30/20 06:00 73 16 139/51 (80) 100 Nasal Cannula 2.0 10/30/20 04:00 97.9 97.9 ROS: No Nausea, No Chest Pain, No Abdominal Pain, No Increase Cough General: Alert Lungs: Clear Cardiovascular: S1, S2 Abdomen: Soft Neuro Exam: Alert Extremities: No Edema Skin: Warm Labs Laboratory Tests Test 10/28/20 20:25 10/28/20 22:00 10/29/20 01:27 10/29/20 01:35 White Blood Count 6.0 x10^3/uL (4.0-11.0) 13.5 x10^3/uL (4.0-11.0) Red Blood Count 2.05 x10^6/uL (3.50-5.40) 3.19 x10^6/uL (3.50-5.40) Hemoglobin 5.2 g/dL (12.0-15.5) 8.3 g/dL (12.0-15.5) Hematocrit 17.3 % (36.0-47.0) 28.6 % (36.0-47.0) Mean Corpuscular Volume 85 fL (79-100) 90 fL (79-100) Mean Corpuscular Hemoglobin 26 pg (25-35) 26 pg (25-35) Mean Corpuscular Hemoglobin Concent 30 g/dL (31-37) 29 g/dL (31-37) Red Cell Distribution Width 23.8 % (11.5-14.5) 22.1 % (11.5-14.5) Platelet Count 348 x10^3/uL (140-400) 408 x10^3/uL (140-400) Neutrophils (%) (Auto) 68 % (31-73) 49 % (31-73) Lymphocytes (%) (Auto) 16 % (24-48) 35 % (24-48) Monocytes (%) (Auto) 11 % (0-9) 12 % (0-9) Eosinophils (%) (Auto) 3 % (0-3) 3 % (0-3) Basophils (%) (Auto) 1 % (0-3) 1 % (0-3) Neutrophils # (Auto) 4.1 x10^3/uL (1.8-7.7) 6.6 x10^3/uL (1.8-7.7) Lymphocytes # (Auto) 1.0 x10^3/uL (1.0-4.8) 4.7 x10^3/uL (1.0-4.8) Monocytes # (Auto) 0.7 x10^3/uL (0.0-1.1) 1.6 x10^3/uL (0.0-1.1) Eosinophils # (Auto) 0.2 x10^3/uL (0.0-0.7) 0.4 x10^3/uL (0.0-0.7) Basophils # (Auto) 0.1 x10^3/uL (0.0-0.2) 0.1 x10^3/uL (0.0-0.2) Platelet Estimate Adequate (ADEQUATE) Hypochromasia Mod Anisocytosis Mod Prothrombin Time 14.5 SEC (11.7-14.0) Prothromb Time International Ratio 1.1 (0.8-1.1) Sodium Level 142 mmol/L (136-145) Potassium Level 4.7 mmol/L (3.5-5.1) Chloride Level 108 mmol/L (98-107) Carbon Dioxide Level 22 mmol/L (21-32) Anion Gap 12 (6-14) Blood Urea Nitrogen 44 mg/dL (7-20) Creatinine 1.6 mg/dL (0.6-1.0) Estimated GFR (Cockcroft-Gault) 31.0 BUN/Creatinine Ratio 28 (6-20) Glucose Level 133 mg/dL (70-99) Calcium Level 9.5 mg/dL (8.5-10.1) Total Bilirubin 0.2 mg/dL (0.2-1.0) Aspartate Amino Transf (AST/SGOT) 26 U/L (15-37) Alanine Aminotransferase (ALT/SGPT) 21 U/L (14-59) Alkaline Phosphatase 33 U/L (46-116) Troponin I Quantitative < 0.017 ng/mL (0.000-0.055) < 0.017 ng/mL (0.000-0.055) YL-Hyk-K-Type Natriuretic Peptide 932 pg/mL (0-449) Total Protein 7.2 g/dL (6.4-8.2) Albumin 3.5 g/dL (3.4-5.0) Albumin/Globulin Ratio 0.9 (1.0-1.7) Urine Collection Type Unknown Urine Color Yellow Urine Clarity Clear Urine pH 5.5 (<5.0-8.0) Urine Specific [place] 1.015 (1.000-1.030) Urine Protein Negative mg/dL (NEG-TRACE) Urine Glucose (UA) Negative mg/dL (NEG) Urine Ketones (Stick) Negative mg/dL (NEG) Urine Blood Negative (NEG) Urine Nitrite Negative (NEG) Urine Bilirubin Negative (NEG) Urine Urobilinogen Dipstick 0.2 mg/dL (0.2 mg/dL) Urine Leukocyte Esterase Negative (NEG) Urine RBC 0 /HPF (0-2) Urine WBC Occ /HPF (0-4) Urine Squamous Epithelial Cells Occ /LPF Urine Bacteria 0 /HPF (0-FEW) Glucose (Fingerstick) 318 mg/dL (70-99) Test 10/29/20 02:00 10/29/20 03:10 10/29/20 08:17 10/29/20 11:35 O2 Saturation 94 % (92-99) Arterial Blood pH 7.29 (7.35-7.45) Arterial Blood pCO2 at Patient Temp 44 mmHg (35-46) Arterial Blood pO2 at Patient Temp 82 mmHg (65-108) Arterial Blood pO2 (Temp corrected) mmHg Arterial Blood HCO3 21 mmol/L (21-28) Arterial Blood Base Excess -5 mmol/L (-3-3) FiO2 65 White Blood Count 10.7 x10^3/uL (4.0-11.0) Red Blood Count 2.53 x10^6/uL (3.50-5.40) Hemoglobin 6.6 g/dL (12.0-15.5) 6.9 g/dL (12.0-15.5) Hematocrit 21.1 % (36.0-47.0) Mean Corpuscular Volume 83 fL (79-100) Mean Corpuscular Hemoglobin 26 pg (25-35) Mean Corpuscular Hemoglobin Concent 31 g/dL (31-37) Red Cell Distribution Width 20.7 % (11.5-14.5) Platelet Count 310 x10^3/uL (140-400) Haptoglobin 109 mg/dL (42-346) Total Bilirubin 0.7 mg/dL (0.2-1.0) ZI-Jne-K-Type Natriuretic Peptide 1354 pg/mL (0-449) Glucose (Fingerstick) 143 mg/dL (70-99) Test 10/29/20 16:52 10/29/20 20:17 10/30/20 04:30 Glucose (Fingerstick) 128 mg/dL (70-99) 196 mg/dL (70-99) White Blood Count 7.0 x10^3/uL (4.0-11.0) Red Blood Count 2.49 x10^6/uL (3.50-5.40) Hemoglobin 6.5 g/dL (12.0-15.5) Hematocrit 20.7 % (36.0-47.0) Mean Corpuscular Volume 83 fL (79-100) Mean Corpuscular Hemoglobin 26 pg (25-35) Mean Corpuscular Hemoglobin Concent 32 g/dL (31-37) Red Cell Distribution Width 21.4 % (11.5-14.5) Platelet Count 300 x10^3/uL (140-400) Sodium Level 145 mmol/L (136-145) Potassium Level 3.5 mmol/L (3.5-5.1) Chloride Level 110 mmol/L (98-107) Carbon Dioxide Level 26 mmol/L (21-32) Anion Gap 9 (6-14) Blood Urea Nitrogen 31 mg/dL (7-20) Creatinine 1.6 mg/dL (0.6-1.0) Estimated GFR (Cockcroft-Gault) 31.0 Glucose Level 137 mg/dL (70-99) Calcium Level 8.7 mg/dL (8.5-10.1) Laboratory Tests Test 10/29/20 08:17 10/29/20 11:35 10/29/20 16:52 10/29/20 20:17 Glucose (Fingerstick) 143 mg/dL (70-99) 128 mg/dL (70-99) 196 mg/dL (70-99) Hemoglobin 6.9 g/dL (12.0-15.5) Test 10/30/20 04:30 White Blood Count 7.0 x10^3/uL (4.0-11.0) Red Blood Count 2.49 x10^6/uL (3.50-5.40) Hemoglobin 6.5 g/dL (12.0-15.5) Hematocrit 20.7 % (36.0-47.0) Mean Corpuscular Volume 83 fL (79-100) Mean Corpuscular Hemoglobin 26 pg (25-35) Mean Corpuscular Hemoglobin Concent 32 g/dL (31-37) Red Cell Distribution Width 21.4 % (11.5-14.5) Platelet Count 300 x10^3/uL (140-400) Sodium Level 145 mmol/L (136-145) Potassium Level 3.5 mmol/L (3.5-5.1) Chloride Level 110 mmol/L (98-107) Carbon Dioxide Level 26 mmol/L (21-32) Anion Gap 9 (6-14) Blood Urea Nitrogen 31 mg/dL (7-20) Creatinine 1.6 mg/dL (0.6-1.0) Estimated GFR (Cockcroft-Gault) 31.0 Glucose Level 137 mg/dL (70-99) Calcium Level 8.7 mg/dL (8.5-10.1) Medications Active Scripts Medications Dose Route/Sig Max Daily Dose Days Date Category Januvia (Sitagliptin Phosphate) 100 Mg Tablet 100 Mg PO DAILY 09/24/20 Reported Metformin Hcl 1,000 Mg Tablet 1,000 Mg PO BIDWMEALS 09/24/20 Reported Atorvastatin Calcium 40 Mg Tablet 1 Tab PO QHS 06/13/19 Reported Aspir 81 (Aspirin) 81 Mg Tablet.dr 81 Mg PO DAILY 09/03/13 Reported Fish Oil 1,000 Mg Capsule ([place]-3 Fatty Acids/Fish Oil) 1 Each Capsule 1 Each PO DAILY 09/03/13 Reported Tramadol Hcl 50 Mg Tablet 50 Mg PO PRN TID PRN 09/03/13 Reported Carvedilol (Carvedilol) 3.125 Mg Tablet 6.25 Mg PO BID 09/03/13 Reported Glipizide 10 Mg Tablet 10 Mg PO BID 09/03/[address] chest IMPRESSION: 1. Findings likely related to pulmonary edema with small bilateral pleural effusions. 2. A 6 mm nodule in the left lower lobe. A six-month follow-up chest CT is recommended to reevaluate. 3. Mild wall thickening at the sigmoid colon, nonspecific may relate to mild focal colitis. Correlate with symptomatology. 4. Cholelithiasis. 5. Moderate amount stool in the colon. Correlate for constipation. Impression . IMPRESSION: 1. Acute hypoxemic respiratory failure secondary to acute pulmonary edema, doubt transfusion-related lung injury.--- Improved 2. Cardiomyopathy, ejection fraction 35%. 3. Chronic obstructive pulmonary disease, unknown FEV1. 4. Tobacco dependence in remission. 5. Acute blood loss anemia--ongoing 6. Metabolic acidosis secondary to increased work of breathing. 7. Hyperlipidemia. 8. Hypertension. 9. Type 2 diabetes. Plan . UPDATED 10/30/20 Clinically improved status post diuresis Continue current supplemental oxygen to keep oxygen saturations greater than 92%, currently on 3 L nasal cannula Bronchodilators Follow hematology recommendations, anemia on labs today transfusion per hematology, monitor hemoglobin CT of chest reviewed, recommend repeat CT scan in 6 months Outpatient pulmonary function testing Physical therapy/Occupational Therapy Hold anticoagulation in the setting of anemia GI prophylaxis Discussed with RN, patient and daughter at bedside Patient is a DO NOT RESUSCITATE PLAN 10/29/20 1. We will continue support with oxygen supplementation. 2. We will defer further transfusions to Hematology or PCP. 3. Baseline CT chest. The patient is a former smoker. 4. P.r.n. nebulized treatments. 5. Outpatient pulmonary function testing. 6. Continue home medications. ETHAN VIRAMONTES MD Oct 30, 2020 07:55
[2020-10-30] MEDS: INSULIN LISPRO 300 UNITS/3 ML VIAL. SQ SCH ×6 (08:00→17:49)
[2020-10-30] MEDS: ASPIRIN ENTERIC COATED 81 MG TABLET.DR. PO SCH (08:36)
[2020-10-30] MEDS: CARVEDILOL 3.125 MG TABLET. PO SCH ×2 (08:36→16:37)
--- NOTE | 2020-10-30 12:05 | PDOC ---
GENERAL General: Patient examined chart reviewed today is hospital day 3 for this patient with severe anemia of as yet unclear etiology. 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 Hematology consult is pending. She was transferred to the ICU over the weekend for transfusion related acute lung reaction following her first packed red blood cell transfusion at admission. She has been holding her hemoglobin at about 6.5 since that time. The [facility] blood bank is screening and pretreating her blood in preparation for another unit today. We will use that pretreated blood x1 unit of packed red blood cells and pretreat her with Lasix 20 mg IV x1 dose, Benadryl 25 mg IV x1 dose, and methylprednisolone 40 mg IV x1 dose. Patient is accompanied by her daughter at bedside today and they did not have any questions following our discussion. I have also spoken with nursing about her case. We will hold her in the ICU during the transfusion and for several hours after and then transfer her up to avoid clinical deterioration upstairs and then transfer back down. Time spent today is 30 minutes with greater than 50% in counseling and coordination of care most of which in discussion with patient. Problems: (1) Severe anemia VITAL SIGNS Vital Signs/I&O: Vital Signs Date Time Temp Pulse Resp B/P (MAP) Pulse Ox O2 Delivery O2 Flow Rate FiO2 10/30/20 08:36 89 143/47 10/30/20 06:00 16 100 Nasal Cannula 2.0 10/30/20 04:00 97.9 97.9 I & O 10/29/20 10/29/20 10/30/20 15:00 23:00 07:00 Intake Total 700 ml 480 ml 500 ml Output Total 1000 ml 680 ml 650 ml Balance -300 ml -200 ml -150 ml Patient is sitting up resting in her chair comfortably pleasant alert and oriented x3 no acute distress HEENT exam is unremarkable for acute abnormality Chest bilateral equal air entry though diminished throughout no crackles or wheezes are noted Heart S1-S2 normal regular rate and rhythm no murmurs or gallops are noted Abdomen soft nontender nondistended no masses organomegaly noted Extremity exam is unremarkable for acute abnormality ALLERGIES Allergies: Allergies Coded Allergies Type Severity Reaction Last Updated Verified iodine Allergy Severe blisters leaving scars 10/10/17 Yes MEDS Medications: Current Medications Medications (Trade) Dose Ordered Sig/James Route PRN Reason Start Time Stop Time Status Last Admin Dose Admin Atorvastatin Calcium (Lipitor) 40 mg QHS PO 10/29/20 21:00 10/29/20 20:15 Insulin Glargine (Lantus Syringe) 10 unit QHS SQ 10/29/20 21:00 10/29/20 20:19 Carvedilol (Coreg) 3.125 mg BIDWMEALS PO 10/30/20 08:00 10/30/20 08:36 Sodium Chloride 500 ml @ 500 mls/hr 1X ONCE IV 10/29/20 18:30 10/29/20 19:29 DC 10/29/20 18:19 Current Medications Medications (Trade) Dose Ordered Sig/James Start Time Stop Time Status Last Admin Dose Admin Acetaminophen (Tylenol) 650 mg PRN Q6HRS PRN 10/29/20 00:45 Acetaminophen/ Hydrocodone Bitart (Lortab 5/325) 1 tab PRN Q4HRS PRN 10/29/20 00:45 Al Hydroxide/Mg Hydroxide (Mylanta Plus Xs) 30 ml PRN Q3HRS PRN 10/29/20 00:45 Aspirin (Ecotrin) 81 mg DAILY08 10/29/20 08:00 10/30/20 08:36 Atorvastatin Calcium (Lipitor) 40 mg QHS 10/29/20 21:00 10/29/20 20:15 Bisacodyl (Dulcolax Supp) 10 mg PRN DAILY PRN 10/29/20 00:45 Calcium Carbonate/ Glycine (Tums) 500 mg PRN Q3HRS PRN 10/29/20 00:45 Carvedilol (Coreg) 3.125 mg BIDWMEALS 10/30/20 08:00 10/30/20 08:36 Dextrose (Dextrose 50%-Water Syringe) 12.5 gm PRN Q15MIN PRN 10/29/20 10:00 Dextrose (Iv Dextrose 5%) 250 ml PRN Q15MIN PRN 10/29/20 00:45 UNV Diphenhydramine HCl (Benadryl) 25 mg 1X ONCE 10/29/20 02:00 10/29/20 02:02 DC 10/29/20 02:37 Furosemide (Lasix) 40 mg 1X ONCE 10/29/20 01:15 10/29/20 01:19 DC 10/29/20 01:20 Glipizide (Glucotrol) 10 mg BIDBFRMEAL 10/29/20 16:30 10/29/20 14:18 DC Insulin Glargine (Lantus Syringe) 10 unit QHS 10/29/20 21:00 10/29/20 20:19 Insulin Human Lispro (HumaLOG) 0-7 UNITS TIDWMEALS 10/29/20 12:00 Iron Sucrose 500 mg/Sodium Chloride 275 ml @ 78.571 mls/ hr 1X ONCE 10/29/20 04:30 10/29/20 07:59 DC 10/29/20 03:54 Morphine Sulfate (Morphine Sulfate) 2 mg PRN Q1HR PRN 10/29/20 00:45 Non-Formulary Medication (Glipizide ) 10 mg BID 10/29/20 09:00 10/29/20 10:27 DC Ondansetron HCl (Zofran) 4 mg PRN Q6HRS PRN 10/29/20 00:45 Sodium Chloride 500 ml @ 500 mls/hr 1X ONCE 10/29/20 18:30 10/29/20 19:29 DC 10/29/20 18:19 Tramadol HCl (Ultram) 50 mg PRN TID PRN 10/29/20 00:45 10/29/20 00:55 LAB Lab: Laboratory Tests Test 10/29/20 16:52 10/29/20 20:17 10/30/20 04:30 10/30/20 08:31 Glucose (Fingerstick) 128 mg/dL (70-99) H 196 mg/dL (70-99) H 151 mg/dL (70-99) H White Blood Count 7.0 x10^3/uL (4.0-11.0) Red Blood Count 2.49 x10^6/uL (3.50-5.40) L Hemoglobin 6.5 g/dL (12.0-15.5) *L Hematocrit 20.7 % (36.0-47.0) *L Mean Corpuscular Volume 83 fL (79-100) Mean Corpuscular Hemoglobin 26 pg (25-35) Mean Corpuscular Hemoglobin Concent 32 g/dL (31-37) Red Cell Distribution Width 21.4 % (11.5-14.5) H Platelet Count 300 x10^3/uL (140-400) Sodium Level 145 mmol/L (136-145) Potassium Level 3.5 mmol/L (3.5-5.1) Chloride Level 110 mmol/L (98-107) H Carbon Dioxide Level 26 mmol/L (21-32) Anion Gap 9 (6-14) Blood Urea Nitrogen 31 mg/dL (7-20) H Creatinine 1.6 mg/dL (0.6-1.0) H Estimated GFR (Cockcroft-Gault) 31.0 Glucose Level 137 mg/dL (70-99) H Calcium Level 8.7 mg/dL (8.5-10.1) Laboratory Tests 10/30/20 04:30 Laboratory Tests 10/30/20 04:30 IMAGING Imaging: PATIENT: NICOLLE FLORENTINO ACCOUNT: [id number] : 1940 LOCATION: [address] [place] [address] AGE: 80 SEX: F EXAM STATUS: ADM IN ORD. PHYSICIAN: TRISTIN FRAUSTO MD REASON: severe anemia evaluate cancer, W/O DUE TO OIDINE SEVERE ALLERGY PROCEDURE: CT CHEST ABDOMEN PELVIS WO Exam: CT of chest, abdomen and pelvis without contrast INDICATION: Severe anemia, evaluate cancer TECHNIQUE: Sequential axial images through the chest, abdomen and pelvis obtained without IV contrast. Sagittal and coronal reformatted images were reconstructed from the axial data and reviewed. Exposure: One or more of the following in the visualized dose reduction techniques were utilized for this examination: 1. Automated exposure control 2. Adjustment of the MA and/or KV according to patient size 3. Use of iterative of reconstructive technique Comparisons: 06/13/2019 FINDINGS: Visualized portions of the thyroid are unremarkable. No enlarged mediastinal lymph nodes are identified. Heart is mildly enlarged. Pacer with leads terminating the right heart. No pericardial effusion. Thoracic aorta has a normal course and caliber. Pulmonary artery is not enlarged. Airways are patent. There is subtle groundglass opacity noted in the right lung. 6 mm nodule left lower lobe series 2 image 32. Small bilateral pleural effusions with adjacent atelectasis. Evaluation of solid organs is limited secondary to noncontrast technique. Liver, spleen, pancreas and adrenals are unremarkable. Gallstones are noted within the gallbladder which is nondilated. No perinephric inflammation or hydronephrosis. Bilateral nonobstructing renal calculi are noted. Bladder is decompressed not well evaluated. Olivares balloon noted in the bladder. Uterus is nonenlarged. No abnormal adnexal mass. Diverticulosis noted at the sigmoid colon with mild associated wall thickening. Moderate amount of stool is noted throughout the colon. Appendix is normal. Small bowel is unremarkable. No free abdominal air or fluid. No obstruction. Abdominal aorta has a normal course and caliber. No enlarged intra-abdominal lymph nodes are identified. No suspicious osseous lesions or acute fractures. IMPRESSION: 1. Findings likely related to pulmonary edema with small bilateral pleural effusions. 2. A 6 mm nodule in the left lower lobe. A six-month follow-up chest CT is recommended to reevaluate. 3. Mild wall thickening at the sigmoid colon, nonspecific may relate to mild focal colitis. Correlate with symptomatology. 4. Cholelithiasis. 5. Moderate amount stool in the colon. Correlate for constipation. ASSESSMENT & PLAN A&P Plan as noted above This note was created using [employer] and may have omissions and/or errors due to the nature of real-time voice hardboard supervisor. Justifications for Admission Other Justification Profound anemia TRISTIN FRAUSTO MD Oct 30, 2020 12:05
[2020-10-30] MEDS ORDERED: diphenhydrAMINE 50 MG/ML VIAL IVP ONE (12:30)
[2020-10-30] MEDS ORDERED: FUROSEMIDE 20 MG/2 ML VIAL. IVP ONE (12:30)
[2020-10-30] MEDS ORDERED: methylPREDNISolone SOD SUCC PF 40 MG/ML VIAL. IV ONE (12:30)
--- NOTE | 2020-10-30 16:04 | NUR ---
OK per pathologist to infuse 1 unit blood after communication w blood [place] in [place]. Lasix 40 mg IVP as well as steroid and Benadryl 30 min prior to blood. started at 50 ml/H x 15 min then increased to 75 ml @1600. Informed on "symptoms " to be aware of/report immediately to RN.
[2020-10-30] MEDS: ATORVASTATIN CALCIUM 40 MG TABLET. PO SCH (21:32)
[2020-10-30] MEDS: INSULIN GLARGINE SYRINGE. SQ SCH (21:32)
[2020-10-31] VITALS (7 sets, daily range): BP systolic 115–158; BP diastolic 46–72
[2020-10-31 07:13] LABS: BASO % 0 % (0-3); EOS % 0 % (0-3); HEMATOCRIT 28.5 % (36.0-47.0); HEMOGLOBIN 9.2 g/dL (12.0-15.5); LYMPH # 0.5 x10^3/uL (1.0-4.8); LYMPH % 6 % (24-48); MEAN CORPUSCULAR HEMOGLOBIN 26 pg (25-35); MEAN CORPUSCULAR HGB CONC 32 g/dL (31-37); MEAN CORPUSCULAR VOLUME 82 fL (79-100); MONO # 0.8 x10^3/uL (0.0-1.1); MONO % 9 % (0-9); NEUT # 7.8 x10^3/uL (1.8-7.7); NEUT % 85 % (31-73); PLATELET COUNT 312 x10^3/uL (140-400); RED CELL DISTRIBUTION WIDTH 20.4 % (11.5-14.5); WHITE BLOOD COUNT 9.2 x10^3/uL (4.0-11.0)
[2020-10-31 07:49] LABS: ALBUMIN 3.4 g/dL (3.4-5.0); ALBUMIN/GLOBULIN RATIO 0.8 (1.0-1.7); CALCIUM 8.7 mg/dL (8.5-10.1); CREATININE 1.2 mg/dL (0.6-1.0); GFR 43.2; POTASSIUM 3.5 mmol/L (3.5-5.1); TOTAL BILIRUBIN 0.9 mg/dL (0.2-1.0); TOTAL PROTEIN 7.5 g/dL (6.4-8.2)
[2020-10-31] MEDS: INSULIN LISPRO 300 UNITS/3 ML VIAL. SQ SCH ×6 (08:23→18:02)
[2020-10-31] MEDS: ASPIRIN ENTERIC COATED 81 MG TABLET.DR. PO SCH (08:37)
[2020-10-31] MEDS: CARVEDILOL 3.125 MG TABLET. PO SCH ×2 (08:37→17:58)
--- NOTE | 2020-10-31 10:06 | PDOC ---
PULMONARY PROGRESS NOTES DATE: 10/31/20 TIME: 10:06 Subjective Patient is resting comfortably on 2 liters NC Denies any shortness of breath or cough feels better S/P transfusion HGB improved today Vitals Vital Signs Date Time Temp Pulse Resp B/P (MAP) Pulse Ox O2 Delivery O2 Flow Rate FiO2 10/31/20 08:37 78 158/68 10/31/20 04:00 98.1 16 94 Nasal Cannula 2.0 98.1 ROS: No Nausea, No Chest Pain, No Abdominal Pain, No Increase Cough General: Alert, Oriented X4 Lungs: Clear Cardiovascular: S1, S2 Abdomen: Soft Neuro Exam: Alert Extremities: No Edema Skin: Warm Labs Laboratory Tests Test 10/29/20 11:35 10/29/20 16:52 10/29/20 20:17 10/30/20 04:30 Hemoglobin 6.9 g/dL (12.0-15.5) 6.5 g/dL (12.0-15.5) Glucose (Fingerstick) 128 mg/dL (70-99) 196 mg/dL (70-99) White Blood Count 7.0 x10^3/uL (4.0-11.0) Red Blood Count 2.49 x10^6/uL (3.50-5.40) Hematocrit 20.7 % (36.0-47.0) Mean Corpuscular Volume 83 fL (79-100) Mean Corpuscular Hemoglobin 26 pg (25-35) Mean Corpuscular Hemoglobin Concent 32 g/dL (31-37) Red Cell Distribution Width 21.4 % (11.5-14.5) Platelet Count 300 x10^3/uL (140-400) Sodium Level 145 mmol/L (136-145) Potassium Level 3.5 mmol/L (3.5-5.1) Chloride Level 110 mmol/L (98-107) Carbon Dioxide Level 26 mmol/L (21-32) Anion Gap 9 (6-14) Blood Urea Nitrogen 31 mg/dL (7-20) Creatinine 1.6 mg/dL (0.6-1.0) Estimated GFR (Cockcroft-Gault) 31.0 Glucose Level 137 mg/dL (70-99) Calcium Level 8.7 mg/dL (8.5-10.1) Test 10/30/20 08:31 10/30/20 12:03 10/30/20 17:34 10/31/20 06:15 Glucose (Fingerstick) 151 mg/dL (70-99) 292 mg/dL (70-99) 212 mg/dL (70-99) White Blood Count 9.2 x10^3/uL (4.0-11.0) Red Blood Count 3.50 x10^6/uL (3.50-5.40) Hemoglobin 9.2 g/dL (12.0-15.5) Hematocrit 28.5 % (36.0-47.0) Mean Corpuscular Volume 82 fL (79-100) Mean Corpuscular Hemoglobin 26 pg (25-35) Mean Corpuscular Hemoglobin Concent 32 g/dL (31-37) Red Cell Distribution Width 20.4 % (11.5-14.5) Platelet Count 312 x10^3/uL (140-400) Neutrophils (%) (Auto) 85 % (31-73) Lymphocytes (%) (Auto) 6 % (24-48) Monocytes (%) (Auto) 9 % (0-9) Eosinophils (%) (Auto) 0 % (0-3) Basophils (%) (Auto) 0 % (0-3) Neutrophils # (Auto) 7.8 x10^3/uL (1.8-7.7) Lymphocytes # (Auto) 0.5 x10^3/uL (1.0-4.8) Monocytes # (Auto) 0.8 x10^3/uL (0.0-1.1) Eosinophils # (Auto) 0.0 x10^3/uL (0.0-0.7) Basophils # (Auto) 0.0 x10^3/uL (0.0-0.2) Sodium Level 144 mmol/L (136-145) Potassium Level 3.5 mmol/L (3.5-5.1) Chloride Level 106 mmol/L (98-107) Carbon Dioxide Level 26 mmol/L (21-32) Anion Gap 12 (6-14) Blood Urea Nitrogen 21 mg/dL (7-20) Creatinine 1.2 mg/dL (0.6-1.0) Estimated GFR (Cockcroft-Gault) 43.2 BUN/Creatinine Ratio 18 (6-20) Glucose Level 220 mg/dL (70-99) Calcium Level 8.7 mg/dL (8.5-10.1) Total Bilirubin 0.9 mg/dL (0.2-1.0) Aspartate Amino Transf (AST/SGOT) 12 U/L (15-37) Alanine Aminotransferase (ALT/SGPT) 16 U/L (14-59) Alkaline Phosphatase 34 U/L (46-116) Total Protein 7.5 g/dL (6.4-8.2) Albumin 3.4 g/dL (3.4-5.0) Albumin/Globulin Ratio 0.8 (1.0-1.7) Test 10/31/20 08:16 Glucose (Fingerstick) 204 mg/dL (70-99) Laboratory Tests Test 10/30/20 12:03 10/30/20 17:34 10/31/20 06:15 10/31/20 08:16 Glucose (Fingerstick) 292 mg/dL (70-99) 212 mg/dL (70-99) 204 mg/dL (70-99) White Blood Count 9.2 x10^3/uL (4.0-11.0) Red Blood Count 3.50 x10^6/uL (3.50-5.40) Hemoglobin 9.2 g/dL (12.0-15.5) Hematocrit 28.5 % (36.0-47.0) Mean Corpuscular Volume 82 fL (79-100) Mean Corpuscular Hemoglobin 26 pg (25-35) Mean Corpuscular Hemoglobin Concent 32 g/dL (31-37) Red Cell Distribution Width 20.4 % (11.5-14.5) Platelet Count 312 x10^3/uL (140-400) Neutrophils (%) (Auto) 85 % (31-73) Lymphocytes (%) (Auto) 6 % (24-48) Monocytes (%) (Auto) 9 % (0-9) Eosinophils (%) (Auto) 0 % (0-3) Basophils (%) (Auto) 0 % (0-3) Neutrophils # (Auto) 7.8 x10^3/uL (1.8-7.7) Lymphocytes # (Auto) 0.5 x10^3/uL (1.0-4.8) Monocytes # (Auto) 0.8 x10^3/uL (0.0-1.1) Eosinophils # (Auto) 0.0 x10^3/uL (0.0-0.7) Basophils # (Auto) 0.0 x10^3/uL (0.0-0.2) Sodium Level 144 mmol/L (136-145) Potassium Level 3.5 mmol/L (3.5-5.1) Chloride Level 106 mmol/L (98-107) Carbon Dioxide Level 26 mmol/L (21-32) Anion Gap 12 (6-14) Blood Urea Nitrogen 21 mg/dL (7-20) Creatinine 1.2 mg/dL (0.6-1.0) Estimated GFR (Cockcroft-Gault) 43.2 BUN/Creatinine Ratio 18 (6-20) Glucose Level 220 mg/dL (70-99) Calcium Level 8.7 mg/dL (8.5-10.1) Total Bilirubin 0.9 mg/dL (0.2-1.0) Aspartate Amino Transf (AST/SGOT) 12 U/L (15-37) Alanine Aminotransferase (ALT/SGPT) 16 U/L (14-59) Alkaline Phosphatase 34 U/L (46-116) Total Protein 7.5 g/dL (6.4-8.2) Albumin 3.4 g/dL (3.4-5.0) Albumin/Globulin Ratio 0.8 (1.0-1.7) Medications Active Scripts Medications Dose Route/Sig Max Daily Dose Days Date Category Januvia (Sitagliptin Phosphate) 100 Mg Tablet 100 Mg PO DAILY 09/24/20 Reported Metformin Hcl 1,000 Mg Tablet 1,000 Mg PO BIDWMEALS 09/24/20 Reported Atorvastatin Calcium 40 Mg Tablet 1 Tab PO QHS 06/13/19 Reported Aspir 81 (Aspirin) 81 Mg Tablet.dr 81 Mg PO DAILY 09/03/13 Reported Fish Oil 1,000 Mg Capsule ([place]-3 Fatty Acids/Fish Oil) 1 Each Capsule 1 Each PO DAILY 09/03/13 Reported Tramadol Hcl 50 Mg Tablet 50 Mg PO PRN TID PRN 09/03/13 Reported Carvedilol (Carvedilol) 3.125 Mg Tablet 6.25 Mg PO BID 09/03/13 Reported Glipizide 10 Mg Tablet 10 Mg PO BID 09/03/[address] chest IMPRESSION: 1. Findings likely related to pulmonary edema with small bilateral pleural effusions. 2. A 6 mm nodule in the left lower lobe. A six-month follow-up chest CT is recommended to reevaluate. 3. Mild wall thickening at the sigmoid colon, nonspecific may relate to mild focal colitis. Correlate with symptomatology. 4. Cholelithiasis. 5. Moderate amount stool in the colon. Correlate for constipation. Impression . IMPRESSION: 1. Acute hypoxemic respiratory failure secondary to acute pulmonary edema, doubt transfusion-related lung injury.--- Improved 2. Cardiomyopathy, ejection fraction 35%. 3. Chronic obstructive pulmonary disease, unknown FEV1. 4. Tobacco dependence in remission. 5. Acute blood loss anemia--ongoing 6. Metabolic acidosis secondary to increased work of breathing. 7. Hyperlipidemia. 8. Hypertension. 9. Type 2 diabetes. Plan . UPDATED 10/31/20 Continue current supplemental oxygen to keep oxygen saturations greater than 92%, currently on 2 L nasal cannula Bronchodilators Follow hematology recommendations,HGB improved S/P transfusion-- Monitor CT of chest reviewed, recommend repeat CT scan in 6 months Outpatient pulmonary function testing Physical therapy/Occupational Therapy GI prophylaxis Discussed with RN, patient and daughter at bedside Patient is a DO NOT RESUSCITATE Ok to transfer out of ICU today if ok with other consults UPDATED 10/30/20 Clinically improved status post diuresis Continue current supplemental oxygen to keep oxygen saturations greater than 92%, currently on 3 L nasal cannula Bronchodilators Follow hematology recommendations, anemia on labs today transfusion per hematology, monitor hemoglobin CT of chest reviewed, recommend repeat CT scan in 6 months Outpatient pulmonary function testing Physical therapy/Occupational Therapy Hold anticoagulation in the setting of anemia GI prophylaxis Discussed with RN, patient and daughter at bedside Patient is a DO NOT RESUSCITATE PLAN 10/29/20 1. We will continue support with oxygen supplementation. 2. We will defer further transfusions to Hematology or PCP. 3. Baseline CT chest. The patient is a former smoker. 4. P.r.n. nebulized treatments. 5. Outpatient pulmonary function testing. 6. Continue home medications. ETHAN VIRAMONTES MD Oct 31, 2020 10:06
[2020-10-31] MEDS ORDERED: LISI1TAB20 PO (10:26)
--- NOTE | 2020-10-31 13:38 | PDOC ---
[facility] PROGRESS NOTE Date of Service DOS: DATE: 10/31/20 TIME: 13:35 Chief Complaint Chief Complaint Assessment/Plan Acute hypoxemic respiratory failure secondary to acute pulmonary edema.--- Improved Cardiomyopathy, ejection fraction 35%. Chronic obstructive pulmonary disease, unknown FEV1. Profound symptomatic anemia--ongoing Metabolic acidosis secondary to increased work of breathing. Hyperlipidemia. Hypertension. Type 2 diabetes. Pending hematology evaluation. Trend hemoglobin levels History of Present Illness History of Present Illness 10/31/2020 No acute events overnight. Patient doing clinically well without any complaints. No dyspnea saturating 99% on room air. Hemoglobin stable at 9.2. Pending hematology evaluation. Patient's chart, labs, images were reviewed and discussed with RN 80-year-old woman who is a continuity outpatient of Dr. Romie Gregg who uses the [facility] hospitalist here at [facility]. I am rounding for them this weekend. The patient was admitted to [facility] with the same complaint of severe anemia in early September. Admission hemoglobin at that point was 5.4 and she was discharged home several days after admission with a hemoglobin of 8.1, with recommendations for close outpatient followup. The patient is a relatively poor historian. Daughter, Shahrzad, who lives out in [place] and is her medical durable power of ip attorney, is at bedside this morning. She can best be found at [phone]. They both tell me that the patient has had at least 4 packed red blood cell transfusions total in her lifetime and that this diagnosis of severe anemia is relatively new. She has not yet seen Hematology. On that last admission, her fecal occult blood was negative and the patient denies any active obvious bleeding. GI was not consulted during that admission. The patient was sent into the emergency department last night by her doctor with severe anemia, admission hemoglobin of 5.2. Again this morning, the patient denies any active bleeding, no nausea or vomiting, no change in her bowel habits. Her stool appears normal. Her only complaint is that she is feeling wiped out and weak. She tells me that she does not like to be in the hospital and does not want to have any intervention, just wants to feel better. Her main goal was getting home as quickly as possible. She is agreeable to speaking with Hematology to figure out what is causing this severe anemia. The patient denies any chest pain, palpitations. Last night during her transfusion, she developed acute respiratory distress and was transferred to the intensive care unit. She is currently comfortable on 4 liters of oxygen. She does remember the same situation happening during that last admission, although there is not much documentation regarding any persistent respiratory symptoms following blood transfusion last admission. All other systems reviewed and negative. Vitals/I&O Vitals/I&O: Vital Signs Date Time Temp Pulse Resp B/P (MAP) Pulse Ox O2 Delivery O2 Flow Rate FiO2 10/31/20 08:37 78 158/68 10/31/20 08:00 Nasal Cannula 2.0 10/31/20 04:00 98.1 16 94 98.1 I & O 10/30/20 10/30/20 10/31/20 14:59 22:59 06:59 Intake Total 590 ml 878 ml Output Total 1135 ml 2345 ml 735 ml Balance -545 ml -1467 ml -735 ml Physical Exam General: Alert, Oriented X3, Cooperative Heart: No murmurs Lungs: Clear Abdomen: No tenderness Extremities: No edema Skin: No significant lesion Labs Labs: Laboratory Tests Test 10/30/20 17:34 10/31/20 06:15 10/31/20 08:16 10/31/20 12:31 Glucose (Fingerstick) 212 mg/dL (70-99) 204 mg/dL (70-99) 274 mg/dL (70-99) White Blood Count 9.2 x10^3/uL (4.0-11.0) Red Blood Count 3.50 x10^6/uL (3.50-5.40) Hemoglobin 9.2 g/dL (12.0-15.5) Hematocrit 28.5 % (36.0-47.0) Mean Corpuscular Volume 82 fL (79-100) Mean Corpuscular Hemoglobin 26 pg (25-35) Mean Corpuscular Hemoglobin Concent 32 g/dL (31-37) Red Cell Distribution Width 20.4 % (11.5-14.5) Platelet Count 312 x10^3/uL (140-400) Neutrophils (%) (Auto) 85 % (31-73) Lymphocytes (%) (Auto) 6 % (24-48) Monocytes (%) (Auto) 9 % (0-9) Eosinophils (%) (Auto) 0 % (0-3) Basophils (%) (Auto) 0 % (0-3) Neutrophils # (Auto) 7.8 x10^3/uL (1.8-7.7) Lymphocytes # (Auto) 0.5 x10^3/uL (1.0-4.8) Monocytes # (Auto) 0.8 x10^3/uL (0.0-1.1) Eosinophils # (Auto) 0.0 x10^3/uL (0.0-0.7) Basophils # (Auto) 0.0 x10^3/uL (0.0-0.2) Sodium Level 144 mmol/L (136-145) Potassium Level 3.5 mmol/L (3.5-5.1) Chloride Level 106 mmol/L (98-107) Carbon Dioxide Level 26 mmol/L (21-32) Anion Gap 12 (6-14) Blood Urea Nitrogen 21 mg/dL (7-20) Creatinine 1.2 mg/dL (0.6-1.0) Estimated GFR (Cockcroft-Gault) 43.2 BUN/Creatinine Ratio 18 (6-20) Glucose Level 220 mg/dL (70-99) Calcium Level 8.7 mg/dL (8.5-10.1) Total Bilirubin 0.9 mg/dL (0.2-1.0) Aspartate Amino Transf (AST/SGOT) 12 U/L (15-37) Alanine Aminotransferase (ALT/SGPT) 16 U/L (14-59) Alkaline Phosphatase 34 U/L (46-116) Total Protein 7.5 g/dL (6.4-8.2) Albumin 3.4 g/dL (3.4-5.0) Albumin/Globulin Ratio 0.8 (1.0-1.7) Assessment and Plan Assessmemt and Plan Problems Medical Problems: (1) Anemia Status: Acute Comment Review of Relevant I have reviewed the following items juan (where applicable) has been applied. Justifications for Admission Other Justification Profound anemia GIANFRANCO CRAFT MD Oct 31, 2020 13:38
--- NOTE | 2020-10-31 15:25 | NUR ---
SS following for discharge planning. SS reviewed pt chart and discussed with pt RN. Pt is currently requiring oxygen at two liters nasal canula. Pt has no home oxygen. Hemoglobin improving. Pulmonology following. SS will continue to follow for discharge planning.
[2020-10-31] MEDS: INSULIN GLARGINE SYRINGE. SQ SCH (20:46)
[2020-10-31] MEDS: ATORVASTATIN CALCIUM 40 MG TABLET. PO SCH (20:47)
[2020-11-01 03:01] VITALS: BP 123/55
[2020-11-01] MEDS: traMADol 50 MG TABLET PO PRN (04:00)
[2020-11-01 07:41] VITALS: BP 135/56
[2020-11-01] MEDS: INSULIN LISPRO 300 UNITS/3 ML VIAL. SQ SCH ×4 (08:00→12:44)
[2020-11-01] MEDS: ASPIRIN ENTERIC COATED 81 MG TABLET.DR. PO SCH (08:16)
[2020-11-01] MEDS: CARVEDILOL 3.125 MG TABLET. PO SCH (08:16)
--- NOTE | 2020-11-01 08:42 | NUR ---
SPOKE TO HELEN AT DR HOPKINS'S OFFICE. WILL ROUND AFTER 1100AM WHEN HE'S DONE SEEING PT'S IN OFFICE.
[2020-11-01] MEDS ORDERED: LINAGLIPTIN 5 MG TABLET PO SCH (09:00)
[2020-11-01 09:08] LABS: BASO # 0.1 x10^3/uL (0.0-0.2); BASO % 1 % (0-3); EOS # 0.3 x10^3/uL (0.0-0.7); EOS % 4 % (0-3); HEMATOCRIT 28.7 % (36.0-47.0); HEMOGLOBIN 9.1 g/dL (12.0-15.5); LYMPH # 1.3 x10^3/uL (1.0-4.8); LYMPH % 15 % (24-48); MEAN CORPUSCULAR HEMOGLOBIN 27 pg (25-35); MEAN CORPUSCULAR HGB CONC 32 g/dL (31-37); MEAN CORPUSCULAR VOLUME 84 fL (79-100); MONO % 12 % (0-9); NEUT # 5.8 x10^3/uL (1.8-7.7); NEUT % 68 % (31-73); PLATELET COUNT 313 x10^3/uL (140-400); RED BLOOD COUNT 3.43 x10^6/uL (3.50-5.40); RED CELL DISTRIBUTION WIDTH 20.5 % (11.5-14.5); WHITE BLOOD COUNT 8.5 x10^3/uL (4.0-11.0)
--- NOTE | 2020-11-01 09:12 | PDOC ---
PULMONARY PROGRESS NOTES DATE: 11/01/20 TIME: 09:12 Subjective Pt. is now on room air no SOA or cough no overnight events Vitals Vital Signs Date Time Temp Pulse Resp B/P (MAP) Pulse Ox O2 Delivery O2 Flow Rate FiO2 11/01/20 08:16 80 135/56 11/01/20 07:41 97.9 18 96 Room Air 97.9 10/31/20 12:00 2.0 ROS: No Nausea, No Chest Pain, No Abdominal Pain, No Increase Cough General: Alert, Oriented X4 Lungs: Clear Cardiovascular: S1, S2 Abdomen: Soft Neuro Exam: Alert Extremities: No Edema Skin: Warm Labs Laboratory Tests Test 10/30/20 12:03 10/30/20 17:34 10/31/20 06:15 10/31/20 08:16 Glucose (Fingerstick) 292 mg/dL (70-99) 212 mg/dL (70-99) 204 mg/dL (70-99) White Blood Count 9.2 x10^3/uL (4.0-11.0) Red Blood Count 3.50 x10^6/uL (3.50-5.40) Hemoglobin 9.2 g/dL (12.0-15.5) Hematocrit 28.5 % (36.0-47.0) Mean Corpuscular Volume 82 fL (79-100) Mean Corpuscular Hemoglobin 26 pg (25-35) Mean Corpuscular Hemoglobin Concent 32 g/dL (31-37) Red Cell Distribution Width 20.4 % (11.5-14.5) Platelet Count 312 x10^3/uL (140-400) Neutrophils (%) (Auto) 85 % (31-73) Lymphocytes (%) (Auto) 6 % (24-48) Monocytes (%) (Auto) 9 % (0-9) Eosinophils (%) (Auto) 0 % (0-3) Basophils (%) (Auto) 0 % (0-3) Neutrophils # (Auto) 7.8 x10^3/uL (1.8-7.7) Lymphocytes # (Auto) 0.5 x10^3/uL (1.0-4.8) Monocytes # (Auto) 0.8 x10^3/uL (0.0-1.1) Eosinophils # (Auto) 0.0 x10^3/uL (0.0-0.7) Basophils # (Auto) 0.0 x10^3/uL (0.0-0.2) Sodium Level 144 mmol/L (136-145) Potassium Level 3.5 mmol/L (3.5-5.1) Chloride Level 106 mmol/L (98-107) Carbon Dioxide Level 26 mmol/L (21-32) Anion Gap 12 (6-14) Blood Urea Nitrogen 21 mg/dL (7-20) Creatinine 1.2 mg/dL (0.6-1.0) Estimated GFR (Cockcroft-Gault) 43.2 BUN/Creatinine Ratio 18 (6-20) Glucose Level 220 mg/dL (70-99) Calcium Level 8.7 mg/dL (8.5-10.1) Total Bilirubin 0.9 mg/dL (0.2-1.0) Aspartate Amino Transf (AST/SGOT) 12 U/L (15-37) Alanine Aminotransferase (ALT/SGPT) 16 U/L (14-59) Alkaline Phosphatase 34 U/L (46-116) Total Protein 7.5 g/dL (6.4-8.2) Albumin 3.4 g/dL (3.4-5.0) Albumin/Globulin Ratio 0.8 (1.0-1.7) Test 10/31/20 12:31 10/31/20 17:05 10/31/20 20:41 11/01/20 07:27 Glucose (Fingerstick) 274 mg/dL (70-99) 270 mg/dL (70-99) 258 mg/dL (70-99) 149 mg/dL (70-99) Laboratory Tests Test 10/31/20 12:31 10/31/20 17:05 10/31/20 20:41 11/01/20 07:27 Glucose (Fingerstick) 274 mg/dL (70-99) 270 mg/dL (70-99) 258 mg/dL (70-99) 149 mg/dL (70-99) Medications Active Scripts Medications Dose Route/Sig Max Daily Dose Days Date Category Emeryuvia (Sitagliptin Phosphate) 100 Mg Tablet 100 Mg PO DAILY 09/24/20 Reported Metformin Hcl 1,000 Mg Tablet 1,000 Mg PO BIDWMEALS 09/24/20 Reported Atorvastatin Calcium 40 Mg Tablet 1 Tab PO QHS 06/13/19 Reported Aspir 81 (Aspirin) 81 Mg Tablet. 81 Mg PO DAILY 09/03/13 Reported Fish Oil 1,000 Mg Capsule ([place]-3 Fatty Acids/Fish Oil) 1 Each Capsule 1 Each PO DAILY 09/03/13 Reported Tramadol Hcl 50 Mg Tablet 50 Mg PO PRN TID PRN 09/03/13 Reported Carvedilol (Carvedilol) 3.125 Mg Tablet 6.25 Mg PO BID 09/03/13 Reported Glipizide 10 Mg Tablet 10 Mg PO BID 09/03/[address] chest IMPRESSION: 1. Findings likely related to pulmonary edema with small bilateral pleural effusions. 2. A 6 mm nodule in the left lower lobe. A six-month follow-up chest CT is recommended to reevaluate. 3. Mild wall thickening at the sigmoid colon, nonspecific may relate to mild focal colitis. Correlate with symptomatology. 4. Cholelithiasis. 5. Moderate amount stool in the colon. Correlate for constipation. Impression . IMPRESSION: 1. Acute hypoxemic respiratory failure secondary to acute pulmonary edema, doubt transfusion-related lung injury.--- Resolved 2. Cardiomyopathy, ejection fraction 35%. 3. Chronic obstructive pulmonary disease, unknown FEV1. 4. Tobacco dependence in remission. 5. Acute blood loss anemia--ongoing 6. Metabolic acidosis secondary to increased work of breathing. 7. Hyperlipidemia. 8. Hypertension. 9. Type 2 diabetes. Plan . UPDATED 11/01/20 Respiratory Status Compensated, on room air Bronchodilators CT of chest reviewed, recommend repeat CT scan in 6 months Outpatient pulmonary function testing Physical therapy/Occupational Therapy GI prophylaxis Discussed with RN, patient and daughter at bedside Patient is a DO NOT RESUSCITATE Ok to Discharge UPDATED 10/31/20 Continue current supplemental oxygen to keep oxygen saturations greater than 92%, currently on 2 L nasal cannula Bronchodilators Follow hematology recommendations,HGB improved S/P transfusion-- Monitor CT of chest reviewed, recommend repeat CT scan in 6 months Outpatient pulmonary function testing Physical therapy/Occupational Therapy GI prophylaxis Discussed with RN, patient and daughter at bedside Patient is a DO NOT RESUSCITATE Ok to transfer out of ICU today if ok with other consults UPDATED 10/30/20 Clinically improved status post diuresis Continue current supplemental oxygen to keep oxygen saturations greater than 92%, currently on 3 L nasal cannula Bronchodilators Follow hematology recommendations, anemia on labs today transfusion per h ematology, monitor hemoglobin CT of chest reviewed, recommend repeat CT scan in 6 months Outpatient pulmonary function testing Physical therapy/Occupational Therapy Hold anticoagulation in the setting of anemia GI prophylaxis Discussed with RN, patient and daughter at bedside Patient is a DO NOT RESUSCITATE PLAN 10/29/20 1. We will continue support with oxygen supplementation. 2. We will defer further transfusions to Hematology or PCP. 3. Baseline CT chest. The patient is a former smoker. 4. P.r.n. nebulized treatments. 5. Outpatient pulmonary function testing. 6. Continue home medications. ETHAN VIRAMONTES MD Nov 01, 2020 09:12
[2020-11-01 09:24] LABS: CALCIUM 8.5 mg/dL (8.5-10.1); GFR 53.3; MAGNESIUM 1.8 mg/dL (1.8-2.4); POTASSIUM 3.6 mmol/L (3.5-5.1)
[2020-11-01 09:48] LABS: URIC ACID 7.3 mg/dL (2.6-6.0)
[2020-11-01] MEDS ORDERED: FERR325T14 PO (10:01)
[2020-11-01] MEDS ORDERED: SENN1TAB99 PO (10:01)
--- NOTE | 2020-11-01 10:06 | DISCH ---
DISCHARGE INSTRUCTIONS Condition on Discharge Condition on Discharge: Stable Activity After Discharge Activity Instructions for Disc: Activity as tolerated Lifting Instructions after Dis: No heavy lifting Exercise Instruction after Dis: Progress as tolerated Driving Instructions after Dis: Do not drive today Weight Bearing Status after Di: As tolerated Diet after Discharge Diet after Discharge: Cardiac Diet Texture: Regular Swallowing Supervision: None needed Checks after Discharge Checks after discharge: Check blood press - daily, Check blood sugar, ac/hs Follow-Up Follow up with: PCP within 2 weeks of discharge Follow Up With: Hematology to complete anemia work-up Treatment/Equipment after DC Adaptive Equipment Issued: None GIANFRANCO CRAFT MD Nov 01, 2020 10:06
[2020-11-01 10:32] VITALS: BP 96/37
--- NOTE | 2020-11-01 10:38 | NUR ---
SS following up with discharge planning. SS reviewed pt chart and discussed with pt RN. Pt is currently on room air. PT/OT ordered. OT recommended home independent. SS will continue to follow for discharge planning.
[2020-11-01 11:26] VITALS: BP 138/52
[2020-11-01] MEDS ORDERED: CYAN100072 PO (13:46)
[2020-11-01 14:42] VITALS: BP 99/39
--- NOTE | 2020-11-01 14:58 | NUR ---
PAGED DR HOPKINS TO SEE IF HE'S OK WITH DISCHARGING PT.
--- NOTE | 2020-11-01 15:42 | NUR ---
Discharge Note: NICOLLE FLORENTINO Discharge instructions and discharge home medications reviewed with Patient and a copy given. All questions have been answered and understanding verbalized. The following instructions and handouts were given: ANEMIA, MALNUTRITION Discontinued lines and drains: Peripheral IV intact AND MURPHY. Patient discharged to Home or Self Care with Family Member via Wheelchair
--- NOTE | 2020-11-01 16:41 | PDOC3 ---
[facility]-Discharge Summary Date of Admission: Date of Admission: Oct 29, 2020 Date of Discharge: Date of Discharge: Nov 01, 2020 Discharge Diagnosis: Discharge Diagnosis: Acute hypoxemic respiratory failure secondary to acute pulmonary edema.--- Improved Cardiomyopathy, ejection fraction 35%. Chronic obstructive pulmonary disease, unknown FEV1. Profound symptomatic anemia--ongoing Metabolic acidosis secondary to increased work of breathing. Hyperlipidemia. Hypertension. Type 2 diabetes. Hospital Course: Hospital Course: Patient did receive 1 unit PRBC transfusion and her hemoglobin did remain stable throughout her hospital stay. There are no concerns for acute blood loss in the GI tract. Patient will need to be discharged with iron supplementation p.o. and B12 supplementation. She will have follow-up closely with hematology as an outpatient in 1 month. Anemia work-up has been ordered and sent to the lab. Rest of the hospital course was uneventful. 10/31/2020 No acute events overnight. Patient doing clinically well without any complaints. No dyspnea saturating 99% on room air. Hemoglobin stable at 9.2. Pending hematology evaluation. Patient's chart, labs, images were reviewed and discussed with RN 80-year-old woman who is a continuity outpatient of Dr. Romie Gregg who uses the [facility] hospitalist here at [facility]. I am rounding for them this weekend. The patient was admitted to [facility] service with the same complaint of severe anemia in early September. Admission hemoglobin at that point was 5.4 and she was discharged home several days after admission with a hemoglobin of 8.1, with recommendations for close outpatient followup. The patient is a relatively poor historian. Daughter, Shahrzad, who lives out in [place] and is her medical durable power of estate attorney, is at bedside this morning. She can best be found at [phone]. They both tell me that the patient has had at least 4 packed red blood cell transfusions total in her lifetime and that this diagnosis of severe anemia is relatively new. She has not yet seen Hematology. On that last admission, her fecal occult blood was negative and the patient denies any active obvious bleeding. GI was not consulted during that admission. The patient was sent into the emergency department last night by her doctor with severe anemia, admission hemoglobin of 5.2. Again this morning, the patient denies any active bleeding, no nausea or vomiting, no change in her bowel habits. Her stool appears normal. Her only complaint is that she is feeling wiped out and weak. She tells me that she does not like to be in the hospital and does not want to have any intervention, just wants to feel better. Her main goal was getting home as quickly as possible. She is agreeable to speaking with Hematology to figure out what is causing this severe anemia. The patient denies any chest pain, palpitations. Last night during her transfusion, she developed acute respiratory distress and was transferred to the intensive care unit. She is currently comfortable on 4 liters of oxygen. She does remember the same situation happening during that last admission, although there is not much documentation regarding any persistent respiratory symptoms following blood transfusion last admission. All other systems reviewed and negative. Disposition: Disposition/Orders: D/C to Home Activity: Activity: Resume previous activity Diet: Diet: Cardiac, Consistent Carbohydrate Medications: Home Meds Active Scripts Cyanocobalamin (Vitamin B-12) (B-12) 1,000 Mcg Tablet, 1 TAB PO DAILY for anemia for 30 Days, #30 TAB 0 Refills Prov:GIANFRANCO CRAFT MD 11/01/20 Ferrous Sulfate (FERROUS SULFATE) 325 Mg Tablet, 325 MG PO QODAY for iron deficiency for 30 Days, #30 TAB Prov:GIANFRANCO CRAFT MD 11/01/20 Sennosides/Docusate Sodium (Senna-Docusate Sodium Tablet) 1 Each Tablet, 2 TAB PO BID for constipation for 5 Days, #20 TAB 0 Refills Prov:GIANFRANCO CRAFT MD 11/01/20 Reported Medications Lisinopril/Hydrochlorothiazide (LISINOPRIL-HCTZ 20-25 MG TAB) 1 Each Tablet, 1 TAB PO DAILY for yahir/diuretic, #30 TAB 5 Refills 10/31/20 Sitagliptin Phosphate (JANUVIA) 100 Mg Tablet, 100 MG PO DAILY for DM2, TAB 09/24/20 Metformin Hcl (METFORMIN HCL) 1,000 Mg Tablet, 1000 MG PO BIDWMEALS for na, TAB 09/24/20 Atorvastatin Calcium (ATORVASTATIN CALCIUM) 40 Mg Tablet, 1 TAB PO QHS for HLD, #90 TAB 3 Refills 06/13/19 Aspirin (ASPIR 81) 81 Mg Tablet.dr, 81 MG PO DAILY, TAB 09/03/13 Gary-3 Fatty Acids/Fish Oil (FISH OIL 1,000 MG CAPSULE) 1 Each Capsule, 1 EACH PO DAILY 4/17/14 Tramadol Hcl (TRAMADOL HCL) 50 Mg Tablet, 50 MG PO PRN TID PRN for PAIN 09/03/13 Carvedilol (CARVEDILOL ) 3.125 Mg Tablet, 6.25 MG PO BID for HTN 09/03/13 Glipizide (GLIPIZIDE) 10 Mg Tablet, 10 MG PO BID 09/03/13 Scheduled Aspirin (Aspir 81), 81 MG PO DAILY, (Reported) Atorvastatin Calcium (Atorvastatin Calcium), 1 TAB PO QHS, (Reported) Carvedilol (Carvedilol ), 6.25 MG PO BID, (Reported) Cyanocobalamin (Vitamin B-12) (B-12), 1 TAB PO DAILY Ferrous Sulfate (Ferrous Sulfate), 325 MG PO QODAY Glipizide (Glipizide), 10 MG PO BID, (Reported) Lisinopril/Hydrochlorothiazide (Lisinopril-Hctz 20-25 Mg Tab), 1 TAB PO DAILY, (Reported) Metformin Hcl (Metformin Hcl), 1,000 MG PO BIDWMEALS, (Reported) Gary-3 Fatty Acids/Fish Oil (Fish Oil 1,000 Mg Capsule), 1 EACH PO DAILY, (Reported) Sennosides/Docusate Sodium (Senna-Docusate Sodium Tablet), 2 TAB PO BID Sitagliptin Phosphate (Januvia), 100 MG PO DAILY, (Reported) Scheduled PRN Tramadol Hcl (Tramadol Hcl), 50 MG PO PRN TID PRN for PAIN, (Reported) Total Time: Total Time: Total time spent was 32 minutes in preparing scripts, discharge planning with SWI and RN and preparing this discharge summary Patient seen and examined on day of discharge. No acute abnormal findings. Justicifation of Admission Dx: Justifications for Admission: Justification of Admission Dx: Yes (Anemia) GIANFRANCO CRAFT MD Nov 01, 2020 16:41
--- NOTE | 2020-11-02 07:51 | PDOC2 ---
CONSULT Date of Consult Date of Consult DATE: 11/01/20 TIME: 14:42 Reason for Consult Reason for Consult: Anemia Referring Physician Referring Physician: Dr. Hester Identification/Chief Complaint Chief Complaint Shortness of breath Source Source: Chart review, Patient History of Present Illness Reason for Visit: Bernarda is an 80-year-old woman who presented to the hospital with shortness of breath due to symptomatic anemia. Bernarda was recently admitted to [facility] due to anemia. Hemoglobin was 5.4 and improved with transfusion to 8.1. She was discharged from the hospital with plans for outpatient follow- up. She has been readmitted to [facility] with hemoglobin of 5.2. Hemoglobin since improved after blood transfusion. Patient states that she had endoscopy at some point in the last 1 to 2 years which she was told was normal. Hematology consultation has been sought for further evaluation of anemia. The patient denies any ongoing dietary restrictions. She does report a medical history of coronary artery disease, type 2 diabetes and hypertension. She denies hematemesis or melena or hematochezia. Past Medical History Cardiovascular: CAD, CHF, HTN, Hyperlipidemia Pulmonary: COPD GI: No pertinent hx Rheumatologic: No pertinent hx Infectious disease: No pertinent hx Renal/: No pertinent hx Endocrine: Diabetes Past Surgical History Past Surgical History: Pacemaker, CABG Family History Family History: Coronary Artery Disease, Diabetes, High Cholestrol, Hypertension Social History ALCOHOL: none Drugs: None Current Problem List Problem List Problems Medical Problems: (1) Anemia Status: Acute Current Medications Current Medications Current Medications Sodium Chloride 500 ml @ 500 mls/hr 1X ONCE IV ; Start 10/28/20 at 21:00; Stop 10/28/20 at 21:59; Status DC Aspirin (Ecotrin) 81 mg DAILY08 PO Last administered on 11/01/20at 08:16; Start 10/29/20 at 08:00 Atorvastatin Calcium (Lipitor) 40 mg QHS PO Last administered on 10/31/20at 20:47; Start 10/29/20 at 21:00 Carvedilol (Coreg) 6.25 mg BIDWMEALS PO Last administered on 10/29/20at 16:54; Start 10/29/20 at 08:00; Stop 10/29/20 at 18:15; Status DC Tramadol HCl (Ultram) 50 mg PRN TID PRN PO PAIN MILD TO MODERATE Last administered on 11/01/20at 04:00; Start 10/29/20 at 00:45 Non-Formulary Medication (Glipizide ) 10 mg BID PO ; Start 10/29/20 at 09:00; Stop 10/29/20 at 10:27; Status DC Insulin Glargine (Lantus Syringe) 10 unit QHS SQ Last administered on 10/31/20at 20:46; Start 10/29/20 at 21:00 Insulin Human Lispro (HumaLOG) 3 units TIDWMEALS SQ Last administered on 11/01/20at 12:44; Start 10/29/20 at 08:00 Dextrose (Dextrose 50%-Water Syringe) 12.5 gm PRN Q15MIN PRN IV SEE COMMENTS; Start 10/29/20 at 00:45; Status Cancel Dextrose (Iv Dextrose 5%) 250 ml PRN Q15MIN PRN IV SEE COMMENTS; Start 10/29/20 at 00:45; Status UNV Ondansetron HCl (Zofran) 4 mg PRN Q6HRS PRN IVP NAUSEA/VOMITING; Start 10/29/20 at 00:45 Al Hydroxide/Mg Hydroxide (Mylanta Plus Xs) 30 ml PRN Q3HRS PRN PO HEARTBURN / GAS; Start 10/29/20 at 00:45 Calcium Carbonate/ Glycine (Tums) 500 mg PRN Q3HRS PRN PO UPSET STOMACH; Start 10/29/20 at 00:45 Morphine Sulfate (Morphine Sulfate) 2 mg PRN Q1HR PRN IV PAIN; Start 10/29/20 at 00:45 Acetaminophen/ Hydrocodone Bitart (Lortab 5/325) 1 tab PRN Q4HRS PRN PO PAIN SEVERE; Start 10/29/20 at 00:45 Acetaminophen (Tylenol) 650 mg PRN Q6HRS PRN PO Headaches, Temp > 101.5F; Start 10/29/20 at 00:45 Bisacodyl (Dulcolax Supp) 10 mg PRN DAILY PRN MS CONSTIPATION; Start 10/29/20 at 00:45 Furosemide (Lasix) 40 mg 1X ONCE IVP Last administered on 10/29/20at 01:20; Start 10/29/20 at 01:15; Stop 10/29/20 at 01:19; Status DC Diphenhydramine HCl (Benadryl) 25 mg 1X ONCE IVP Last administered on 10/29/20at 02:37; Start 10/29/20 at 02:00; Stop 10/29/20 at 02:02; Status DC Iron Sucrose 500 mg/Sodium Chloride 275 ml @ 78.571 mls/ hr 1X ONCE IV Last administered on 10/29/20at 03:54; Start 10/29/20 at 04:30; Stop 10/29/20 at 07:59; Status DC Insulin Human Lispro (HumaLOG) 0-7 UNITS TIDWMEALS SQ Last administered on 11/01/20at 12:44; Start 10/29/20 at 12:00 Dextrose (Dextrose 50%-Water Syringe) 12.5 gm PRN Q15MIN PRN IV SEE COMMENTS; Start 10/29/20 at 10:00 Glipizide (Glucotrol) 10 mg BIDBFRMEAL PO ; Start 10/29/20 at 16:30; Stop 10/29/20 at 14:18; Status DC Carvedilol (Coreg) 3.125 mg BIDWMEALS PO Last administered on 11/01/20at 08:16; Start 10/30/20 at 08:00 Sodium Chloride 500 ml @ 500 mls/hr 1X ONCE IV Last administered on 10/29/20at 18:19; Start 10/29/20 at 18:30; Stop 10/29/20 at 19:29; Status DC Furosemide (Lasix) 20 mg 1X ONCE IVP Last administered on 10/30/20at 14:10; Start 10/30/20 at 12:30; Stop 10/30/20 at 12:31; Status DC Diphenhydramine HCl (Benadryl) 25 mg 1X ONCE IVP Last administered on 10/30/20at 14:11; Start 10/30/20 at 12:30; Stop 10/30/20 at 12:31; Status DC Methylprednisolone Sodium Succinate (SOLU-Medrol 40MG VIAL) 40 mg 1X ONCE IV Last administered on 10/30/20at 14:11; Start 10/30/20 at 12:30; Stop 10/30/20 at 12:31; Status DC Linagliptin (Tradjenta) 5 mg DAILY PO Last administered on 11/01/20at 08:15; Start 11/01/20 at 09:00 Active Scripts Active B-12 (Cyanocobalamin (Vitamin B-12)) 1,000 Mcg Tablet 1 Tab PO DAILY 30 Days Ferrous Sulfate 325 Mg Tablet 325 Mg PO QODAY 30 Days Senna-Docusate Sodium Tablet (Sennosides/Docusate Sodium) 1 Each Tablet 2 Tab PO BID 5 Days Reported Lisinopril-Hctz 20-25 Mg Tab (Lisinopril/Hydrochlorothiazide) 1 Each Tablet 1 Tab PO DAILY Januvia (Sitagliptin Phosphate) 100 Mg Tablet 100 Mg PO DAILY Metformin Hcl 1,000 Mg Tablet 1,000 Mg PO BIDWMEALS Atorvastatin Calcium 40 Mg Tablet 1 Tab PO QHS Aspir 81 (Aspirin) 81 Mg Tablet.dr 81 Mg PO DAILY Fish Oil 1,000 Mg Capsule ([place]-3 Fatty Acids/Fish Oil) 1 Each Capsule 1 Each PO DAILY Tramadol Hcl 50 Mg Tablet 50 Mg PO PRN TID PRN Carvedilol (Carvedilol) 3.125 Mg Tablet 6.25 Mg PO BID Glipizide 10 Mg Tablet 10 Mg PO BID Allergies Allergies: Coded Allergies: iodine (Verified Allergy, Severe, blisters leaving scars, 10/10/17) ROS Review of System Negative unless stated otherwise in HPI Physical Exam Physical Exam General: Awake, alert, no distress Head: Atraumatic, no conjunctival icterus, normal oral cavity mucosa Neck: Supple, no lymphadenopathy Chest: No trauma noted Cardiovascular: Regular rhythm, normal rate, no murmurs Respiratory: Bilateral air entry noted, lungs clear to auscultation bilaterally. No accessory muscle use Abdominal: Abdomen is soft, nontender, nondistended. Bowel sounds were normal. No hepatomegaly or splenomegaly Musculoskeletal: No deformity noted Extremities: No edema noted Skin: No rash or lesions Neurologic: Alert and oriented x3, no grossly evident neurologic deficits noted. Full neurological exam was not performed Psychiatric: Appropriate mood and affect Vitals VITALS Vital Signs Date Time Temp Pulse Resp B/P (MAP) Pulse Ox O2 Delivery O2 Flow Rate FiO2 11/01/20 14:42 98.7 67 18 99/39 (59) 93 Room Air 98.7 Labs Labs Laboratory Tests Test 10/31/20 08:16 10/31/20 12:31 10/31/20 17:05 10/31/20 20:41 Glucose (Fingerstick) 204 mg/dL (70-99) 274 mg/dL (70-99) 270 mg/dL (70-99) 258 mg/dL (70-99) Test 11/01/20 07:27 11/01/20 08:50 11/01/20 10:50 11/01/20 12:00 Glucose (Fingerstick) 149 mg/dL (70-99) 250 mg/dL (70-99) White Blood Count 8.5 x10^3/uL (4.0-11.0) Red Blood Count 3.42 x10^6/uL (3.50-5.70) Hemoglobin 9.1 g/dL (12.0-15.5) Hematocrit 28.7 % (36.0-47.0) Mean Corpuscular Volume 84 fL (79-100) Mean Corpuscular Hemoglobin 27 pg (25-35) Mean Corpuscular Hemoglobin Concent 32 g/dL (31-37) Red Cell Distribution Width 20.5 % (11.5-14.5) Platelet Count 313 x10^3/uL (140-400) Neutrophils (%) (Auto) 68 % (31-73) Lymphocytes (%) (Auto) 15 % (24-48) Monocytes (%) (Auto) 12 % (0-9) Eosinophils (%) (Auto) 4 % (0-3) Basophils (%) (Auto) 1 % (0-3) Neutrophils # (Auto) 5.8 x10^3/uL (1.8-7.7) Lymphocytes # (Auto) 1.3 x10^3/uL (1.0-4.8) Monocytes # (Auto) 1.0 x10^3/uL (0.0-1.1) Eosinophils # (Auto) 0.3 x10^3/uL (0.0-0.7) Basophils # (Auto) 0.1 x10^3/uL (0.0-0.2) Absolute Reticulocyte Count 0.154 x10^6/uL (0.020-0.120) Percent Reticulocyte Count 4.5 % (0.5-2.3) Immature Reticulocyte Fraction 0.67 (0.20-0.60) Sodium Level 144 mmol/L (136-145) Potassium Level 3.6 mmol/L (3.5-5.1) Chloride Level 108 mmol/L (98-107) Carbon Dioxide Level 27 mmol/L (21-32) Anion Gap 9 (6-14) Blood Urea Nitrogen 20 mg/dL (7-20) Creatinine 1.0 mg/dL (0.6-1.0) Estimated GFR (Cockcroft-Gault) 53.3 Glucose Level 155 mg/dL (70-99) Uric Acid 7.3 mg/dL (2.6-6.0) Calcium Level 8.5 mg/dL (8.5-10.1) Magnesium Level 1.8 mg/dL (1.8-2.4) Iron Level 46 ug/dL (50-170) Total Iron Binding Capacity 298 ug/dL (250-450) Iron Saturation 15 % (15-34) Ferritin 220 ng/mL (8-252) Lactate Dehydrogenase 189 U/L (81-234) Vitamin B12 Level 257 pg/mL (247-911) Haptoglobin 130 mg/dL (42-346) Laboratory Tests Test 11/01/20 08:50 11/01/20 10:50 11/01/20 12:00 White Blood Count 8.5 x10^3/uL (4.0-11.0) Red Blood Count 3.42 x10^6/uL (3.50-5.70) Hemoglobin 9.1 g/dL (12.0-15.5) Hematocrit 28.7 % (36.0-47.0) Mean Corpuscular Volume 84 fL (79-100) Mean Corpuscular Hemoglobin 27 pg (25-35) Mean Corpuscular Hemoglobin Concent 32 g/dL (31-37) Red Cell Distribution Width 20.5 % (11.5-14.5) Platelet Count 313 x10^3/uL (140-400) Neutrophils (%) (Auto) 68 % (31-73) Lymphocytes (%) (Auto) 15 % (24-48) Monocytes (%) (Auto) 12 % (0-9) Eosinophils (%) (Auto) 4 % (0-3) Basophils (%) (Auto) 1 % (0-3) Neutrophils # (Auto) 5.8 x10^3/uL (1.8-7.7) Lymphocytes # (Auto) 1.3 x10^3/uL (1.0-4.8) Monocytes # (Auto) 1.0 x10^3/uL (0.0-1.1) Eosinophils # (Auto) 0.3 x10^3/uL (0.0-0.7) Basophils # (Auto) 0.1 x10^3/uL (0.0-0.2) Absolute Reticulocyte Count 0.154 x10^6/uL (0.020-0.120) Percent Reticulocyte Count 4.5 % (0.5-2.3) Immature Reticulocyte Fraction 0.67 (0.20-0.60) Sodium Level 144 mmol/L (136-145) Potassium Level 3.6 mmol/L (3.5-5.1) Chloride Level 108 mmol/L (98-107) Carbon Dioxide Level 27 mmol/L (21-32) Anion Gap 9 (6-14) Blood Urea Nitrogen 20 mg/dL (7-20) Creatinine 1.0 mg/dL (0.6-1.0) Estimated GFR (Cockcroft-Gault) 53.3 Glucose Level 155 mg/dL (70-99) Uric Acid 7.3 mg/dL (2.6-6.0) Calcium Level 8.5 mg/dL (8.5-10.1) Magnesium Level 1.8 mg/dL (1.8-2.4) Iron Level 46 ug/dL (50-170) Total Iron Binding Capacity 298 ug/dL (250-450) Iron Saturation 15 % (15-34) Ferritin 220 ng/mL (8-252) Lactate Dehydrogenase 189 U/L (81-234) Vitamin B12 Level 257 pg/mL (247-911) Haptoglobin 130 mg/dL (42-346) Glucose (Fingerstick) 250 mg/dL (70-99) Assessment/Plan Assessment/Plan Assessment: Normocytic anemia Coronary artery disease CKD 3 Acute hypoxemic respiratory failure secondary to acute pulmonary edema.--- Improved Ischemic cardiomyopathy with EF 35% Chronic obstructive pulmonary disease, no PFTs available Hyperlipidemia. Hypertension. Type 2 diabetes Recommendations: -I recommended and requested iron studies, B12, MMA, reticulocyte count, SPEP, free light chain levels, EPO for further evaluation of her anemia -Given low normal B12 of 257, I recommended B12 supplementation. The patient reports that she prefers to try oral supplementation before attempting parenteral supplementation -Iron studies show iron deficiency. I counseled the patient on taking iron supplementation by mouth once daily with orange juice. I discussed the patient the potential benefits of IV iron supplementation. -We will arrange outpatient follow-up in 4 weeks with repeat CBC to assess efficacy of oral iron and B12 supplementation. Can consider parenteral supplementation if CBC and iron/B12 levels are not improved -Plan to check folate level as outpatient -SPEP and light chain results are pending. We will follow up on these results -No additional inpatient evaluation and management required from hematology standpoint. Can consider outpatient EGD/colonoscopy after reviewing reports of recently obtained endoscopy reports -Discussed with Dr. Mir Hopkins MD Medical Oncology/Hematology Ph: [phone] ADAIR HOPKINS MD Nov 02, 2020 07:51
--- NOTE | 2020-11-02 09:06 | PDOC ---
PULMONARY PROGRESS NOTES DATE: 11/02/20 TIME: 09:06 Subjective Pt. is now on room air no SOA or cough no overnight events Vitals Vital Signs Date Time Temp Pulse Resp B/P (MAP) Pulse Ox O2 Delivery O2 Flow Rate FiO2 11/01/20 14:42 98.7 67 18 99/39 (59) 93 Room Air 98.7 ROS: No Nausea, No Chest Pain, No Abdominal Pain, No Increase Cough General: Alert, Oriented X4 Lungs: Clear Cardiovascular: S1, S2 Abdomen: Soft Neuro Exam: Alert Extremities: No Edema Skin: Warm Labs Laboratory Tests Test 10/31/20 12:31 10/31/20 17:05 10/31/20 20:41 11/01/20 07:27 Glucose (Fingerstick) 274 mg/dL (70-99) 270 mg/dL (70-99) 258 mg/dL (70-99) 149 mg/dL (70-99) Test 11/01/20 08:50 11/01/20 10:50 11/01/20 12:00 White Blood Count 8.5 x10^3/uL (4.0-11.0) Red Blood Count 3.42 x10^6/uL (3.50-5.70) Hemoglobin 9.1 g/dL (12.0-15.5) Hematocrit 28.7 % (36.0-47.0) Mean Corpuscular Volume 84 fL (79-100) Mean Corpuscular Hemoglobin 27 pg (25-35) Mean Corpuscular Hemoglobin Concent 32 g/dL (31-37) Red Cell Distribution Width 20.5 % (11.5-14.5) Platelet Count 313 x10^3/uL (140-400) Neutrophils (%) (Auto) 68 % (31-73) Lymphocytes (%) (Auto) 15 % (24-48) Monocytes (%) (Auto) 12 % (0-9) Eosinophils (%) (Auto) 4 % (0-3) Basophils (%) (Auto) 1 % (0-3) Neutrophils # (Auto) 5.8 x10^3/uL (1.8-7.7) Lymphocytes # (Auto) 1.3 x10^3/uL (1.0-4.8) Monocytes # (Auto) 1.0 x10^3/uL (0.0-1.1) Eosinophils # (Auto) 0.3 x10^3/uL (0.0-0.7) Basophils # (Auto) 0.1 x10^3/uL (0.0-0.2) Absolute Reticulocyte Count 0.154 x10^6/uL (0.020-0.120) Percent Reticulocyte Count 4.5 % (0.5-2.3) Immature Reticulocyte Fraction 0.67 (0.20-0.60) Sodium Level 144 mmol/L (136-145) Potassium Level 3.6 mmol/L (3.5-5.1) Chloride Level 108 mmol/L (98-107) Carbon Dioxide Level 27 mmol/L (21-32) Anion Gap 9 (6-14) Blood Urea Nitrogen 20 mg/dL (7-20) Creatinine 1.0 mg/dL (0.6-1.0) Estimated GFR (Cockcroft-Gault) 53.3 Glucose Level 155 mg/dL (70-99) Uric Acid 7.3 mg/dL (2.6-6.0) Calcium Level 8.5 mg/dL (8.5-10.1) Magnesium Level 1.8 mg/dL (1.8-2.4) Iron Level 46 ug/dL (50-170) Total Iron Binding Capacity 298 ug/dL (250-450) Iron Saturation 15 % (15-34) Ferritin 220 ng/mL (8-252) Lactate Dehydrogenase 189 U/L (81-234) Vitamin B12 Level 257 pg/mL (247-911) Haptoglobin 130 mg/dL (42-346) Glucose (Fingerstick) 250 mg/dL (70-99) Laboratory Tests Test 11/01/20 10:50 11/01/20 12:00 Haptoglobin 130 mg/dL (42-346) Glucose (Fingerstick) 250 mg/dL (70-99) Medications Active Scripts Medications Dose Route/Sig Max Daily Dose Days Date Category Januvia (Sitagliptin Phosphate) 100 Mg Tablet 100 Mg PO DAILY 09/24/20 Reported Metformin Hcl 1,000 Mg Tablet 1,000 Mg PO BIDWMEALS 09/24/20 Reported Atorvastatin Calcium 40 Mg Tablet 1 Tab PO QHS 06/13/19 Reported Aspir 81 (Aspirin) 81 Mg Tablet.dr 81 Mg PO DAILY 09/03/13 Reported Fish Oil 1,000 Mg Capsule ([place]-3 Fatty Acids/Fish Oil) 1 Each Capsule 1 Each PO DAILY 09/03/13 Reported Tramadol Hcl 50 Mg Tablet 50 Mg PO PRN TID PRN 09/03/13 Reported Carvedilol (Carvedilol) 3.125 Mg Tablet 6.25 Mg PO BID 09/03/13 Reported Glipizide 10 Mg Tablet 10 Mg PO BID 09/03/[address] chest IMPRESSION: 1. Findings likely related to pulmonary edema with small bilateral pleural effusions. 2. A 6 mm nodule in the left lower lobe. A six-month follow-up chest CT is recommended to reevaluate. 3. Mild wall thickening at the sigmoid colon, nonspecific may relate to mild focal colitis. Correlate with symptomatology. 4. Cholelithiasis. 5. Moderate amount stool in the colon. Correlate for constipation. Impression . IMPRESSION: 1. Acute hypoxemic respiratory failure secondary to acute pulmonary edema, doubt transfusion-related lung injury.--- Resolved 2. Cardiomyopathy, ejection fraction 35%. 3. Chronic obstructive pulmonary disease, unknown FEV1. 4. Tobacco dependence in remission. 5. Acute blood loss anemia--ongoing 6. Metabolic acidosis secondary to increased work of breathing. 7. Hyperlipidemia. 8. Hypertension. 9. Type 2 diabetes. Plan . UPDATED 11/01/20 Respiratory Status Compensated, on room air Bronchodilators CT of chest reviewed, recommend repeat CT scan in 6 months Outpatient pulmonary function testing Physical therapy/Occupational Therapy GI prophylaxis Discussed with RN, patient and daughter at bedside Patient is a DO NOT RESUSCITATE Ok to Discharge UPDATED 10/31/20 Continue current supplemental oxygen to keep oxygen saturations greater than 92%, currently on 2 L nasal cannula Bronchodilators Follow hematology recommendations,HGB improved S/P transfusion-- Monitor CT of chest reviewed, recommend repeat CT scan in 6 months Outpatient pulmonary function testing Physical therapy/Occupational Therapy GI prophylaxis Discussed with RN, patient and daughter at bedside Patient is a DO NOT RESUSCITATE Ok to transfer out of ICU today if ok with other consults UPDATED 10/30/20 Clinically improved status post diuresis Continue current supplemental oxygen to keep oxygen saturations greater than 92%, currently on 3 L nasal cannula Bronchodilators Follow hematology recommendations, anemia on labs today transfusion per hematology, monitor hemoglobin CT of chest reviewed, recommend repeat CT scan in 6 months Outpatient pulmonary function testing Physical therapy/Occupational Therapy Hold anticoagulation in the setting of anemia GI prophylaxis Discussed with RN, patient and daughter at bedside Patient is a DO NOT RESUSCITATE PLAN 10/29/20 1. We will continue support with oxygen supplementation. 2. We will defer further transfusions to Hematology or PCP. 3. Baseline CT chest. The patient is a former smoker. 4. P.r.n. nebulized treatments. 5. Outpatient pulmonary function testing. 6. Continue home medications. ETHAN VIRAMONTES MD Nov 02, 2020 09:06
[2020-11-02 14:17] LABS: ALPHA 1 0.2 g/dL (0.0-0.4); ALPHA 2 0.8 g/dL (0.4-1.0); GAMMA 1.1 g/dL (0.4-1.8); PROTEIN TOTAL 6.1 g/dL (6.0-8.5)
[2020-11-02 16:13] LABS: KAPPA LAMBDA RATIO 1.41 (0.26-1.65); LAMBDA FREE 43.4 mg/L (5.7-26.3)
== END 2020-11-01 15:50 | disposition home or self-care (01) | DRG 811 ==
LOC: ER 17:33 → 6 SOUTH 22:50 → 1 WEST ICU 23:45 → OBSVTOIN 10-29 21:31 → 2 SOUTH 10-31 15:00
PROVIDERS: ADMIT Family Medicine; ATTEND Family Medicine
PROC: 30233N1 Transfusion of Nonautologous Red Blood Cells into Peripheral Vein, Percutaneous Approach (ICD-10-PCS; principal; 2020-10-28)
PROC: 5A09357 Assistance with Respiratory Ventilation, Less than 24 Consecutive Hours, Continuous Positive Airway Pressure (ICD-10-PCS; 2020-10-29)
DX: D64.9 Anemia, unspecified (principal); J96.01 Acute respiratory failure with hypoxia; J81.0 Acute pulmonary edema; E87.2 Acidosis; I13.0 Hypertensive heart and chronic kidney disease with heart failure and stage 1 through stage 4 chronic kidney disease, or unspecified chronic kidney disease; M19.90 Unspecified osteoarthritis, unspecified site; D50.9 Iron deficiency anemia, unspecified; E11.22 Type 2 diabetes mellitus with diabetic chronic kidney disease; E78.00 Pure hypercholesterolemia, unspecified; E78.5 Hyperlipidemia, unspecified; F17.201 Nicotine dependence, unspecified, in remission; I25.10 Atherosclerotic heart disease of native coronary artery without angina pectoris; I25.5 Ischemic cardiomyopathy; I50.9 Heart failure, unspecified; J44.9 Chronic obstructive pulmonary disease, unspecified; N18.30 Chronic kidney disease, stage 3 unspecified; Z82.49 Family history of ischemic heart disease and other diseases of the circulatory system; Z83.3 Family history of diabetes mellitus; Z95.1 Presence of aortocoronary bypass graft
CPT/HCPCS: 36415; 36430; 36600; 71045; 71250; 74176; 80048; 80053; 81001; 82247; 82525; 82607; 82668; 82728; 82805; 82962; 83010; 83520; 83540; 83550; 83615; 83735; 83880; 84165; 84484; 84550; 85018; 85025; 85027; 85045; 85610; 86078; 86850; 86880; 86900; 86901; 86920; 87040; 93005; 94660; 94760; G0378; G0379; J1200; J1756; J1815; J1940; J2920; J7040; J7050; P9016; 97110-GP; 99285-25; J7030

== ENCOUNTER → 2020-11-29 | Outpatient (CLI) | payer MEDICARE ==
[2020-11-01 14:42] VITALS: BP 99/39
[~2020-11-29] MED LIST changes: +CYAN100072 PO; +FERR325T14 PO; +SENN1TAB99 PO
[2020-11-29 11:26] LABS: BASO % 1 % (0-3); EOS # 0.2 x10^3/uL (0.0-0.7); EOS % 4 % (0-3); LYMPH # 0.9 x10^3/uL (1.0-4.8); LYMPH % 16 % (24-48); MEAN CORPUSCULAR HEMOGLOBIN 28 pg (25-35); MEAN CORPUSCULAR HGB CONC 31 g/dL (31-37); MEAN CORPUSCULAR VOLUME 91 fL (79-100); MONO # 0.5 x10^3/uL (0.0-1.1); MONO % 10 % (0-9); NEUT # 3.7 x10^3/uL (1.8-7.7); NEUT % 69 % (31-73); PLATELET COUNT 352 x10^3/uL (140-400); RED BLOOD COUNT 2.29 x10^6/uL (3.50-5.40); RED CELL DISTRIBUTION WIDTH 21.4 % (11.5-14.5); WHITE BLOOD COUNT 5.4 x10^3/uL (4.0-11.0)
[2020-11-29 11:48] LABS: HEMATOCRIT 20.8 % (36.0-47.0); HEMOGLOBIN 6.4 g/dL (12.0-15.5)
[2020-11-29 13:28] LABS: ANISOCYTOSIS SLIGHT; PLT ESTIMATE ADEQUATE (ADEQUATE); POLYCHROMASIA SLIGHT
[2020-12-02 12:13] LABS: METHYLMALONIC ACID 215 nmol/L (0-378)
== END ==
LOC: ONCLAB 10:12
PROVIDERS: ATTEND Internal Medicine Hematology & Oncology
DX: D50.0 Iron deficiency anemia secondary to blood loss (chronic) (principal)
CPT/HCPCS: 36415; 82607; 82746; 83540; 83550; 83921; 85025

== ENCOUNTER → 2020-11-30 | Outpatient (CLI) | payer MEDICARE ==
[~2020-11-30] MED LIST changes: +FUROSEMIDE 20 MG/2 ML VIAL. IVP ONE
[2020-11-30 08:30] LABS: HEMATOCRIT 19.1 % (36.0-47.0)
[2020-11-30 08:44] VITALS: BP 96/48
[2020-11-30 09:50] VITALS: BP 98/40
[2020-11-30 10:50] VITALS: BP 119/39
[2020-11-30 11:43] VITALS: BP 112/48
[2020-11-30 11:45] VITALS: BP 112/48
== END | disposition home or self-care (01) ==
LOC: OPS 07:45
PROVIDERS: ATTEND Internal Medicine Hematology & Oncology
DX: D50.0 Iron deficiency anemia secondary to blood loss (chronic) (principal); I13.0 Hypertensive heart and chronic kidney disease with heart failure and stage 1 through stage 4 chronic kidney disease, or unspecified chronic kidney disease; E11.22 Type 2 diabetes mellitus with diabetic chronic kidney disease; N18.30 Chronic kidney disease, stage 3 unspecified; I50.9 Heart failure, unspecified; I25.10 Atherosclerotic heart disease of native coronary artery without angina pectoris; I42.8 Other cardiomyopathies; J96.10 Chronic respiratory failure, unspecified whether with hypoxia or hypercapnia; J44.9 Chronic obstructive pulmonary disease, unspecified; E78.5 Hyperlipidemia, unspecified; E78.00 Pure hypercholesterolemia, unspecified; M19.90 Unspecified osteoarthritis, unspecified site; Z87.891 Personal history of nicotine dependence; Z95.1 Presence of aortocoronary bypass graft
CPT/HCPCS: 36415; 36430; 85014; 85018; 86850; 86900; 86901; 86920; 96374; J1940; P9016